=== PATIENT | male | born 1950 | race Hispanic/Latino ===

== ENCOUNTER 2017-04-29 14:01 | Emergency (ER) | payer MEDICARE ==
[2017-04-29 14:19] VITALS: TEMP 97.8
[2017-04-29] MEDS ORDERED: Albuterol-Ipratrop 3 mg / 0.5 (3 ml) UD INH STA (15:20)
[2017-04-29] MEDS ORDERED: Albuterol-Ipratrop 3 mg / 0.5 (3 ml) UD ONE (16:11)
[2017-04-29 16:14] LABS: BASO # 0.1 K/uL (0.0-0.2); BASO % 0.8 % (0.0-2.0); EOS # 0.2 K/uL (0.0-0.7); EOS % 1.6 % (0.0-4.0); HEMATOCRIT 43.2 % (35.0-51.0); LYMPH # 1.5 K/uL (1.0-4.3); LYMPH % 14.1 % (20.0-40.0); MEAN CELL VOLUME 82.7 fL (80.0-94.0); MEAN CORPUSCULAR HEMOGLOBIN 27.1 pg (27.0-31.0); MEAN CORPUSCULAR HGB CONC 32.8 g/dL (33.0-37.0); MEAN PLATELET VOLUME 7.6 fL (7.2-11.7); MONO % 9.6 % (0.0-10.0); RED CELL DISTRIBUTION WIDTH 20.1 % (11.5-14.5); WHITE BLOOD COUNT 10.3 K/uL (4.8-10.8)
--- NOTE | 2017-04-29 16:24 | C.PDOC ---
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 Patient recently had left shoulder surgery and is taking Percocet for pain. Patient has nebulizer machine at home and "didn't know I could use it." Patient denies shortness of breath, weakness, numbness, nausea, vomiting, fever, chills, or other complaints at this time. Time Seen by Provider: 04/29/17 15:07 Chief Complaint (Nursing): Chest Pain History Per: Patient History/Exam Limitations: no limitations Onset/Duration Of Symptoms: Days (3 days ) Current Symptoms Are (Timing): Still Present Quality: "Pain" Associated Symptoms: denies: Nausea, Dyspnea, Diaphoresis, Syncope Modifying Factors: None Recent travel outside of the [place]: No Additional History Per: Prior Records Past Medical History Reviewed: Historical Data, Nursing Documentation, Vital Signs Vital Signs: Last Vital Signs Temp 97.8 F 04/29/17 14:17 Pulse 92 H 04/29/17 17:08 Resp 19 04/29/17 17:08 BP 145/77 04/29/17 17:08 Pulse Ox 93 L 04/29/17 17:08 Family History: States: Unknown Family Hx - Social History Hx Alcohol Use: No Hx Substance Use: No Review Of Systems Constitutional: Negative for: Fever, Chills Cardiovascular: Negative for: Palpitations Respiratory: Positive for: Cough. Negative for: Shortness of Breath Gastrointestinal: Positive for: Abdominal Pain. Negative for: Nausea, Vomiting , Diarrhea Neurological: Negative for: Weakness, Numbness Physical Exam - Physical Exam Appears: Non-toxic, No Acute Distress, Other (patient is morbidly obese ) Skin: Warm, Dry, No Rash Head: Atraumatic, Normacephalic, No Tenderness Eye(s): bilateral: Normal Inspection, PERRL, EOMI Oral Mucosa: Moist Neck: Supple Chest: Symmetrical, No Deformity, No Tenderness, Other (no rash ) Cardiovascular: Rhythm Regular, No Murmur Respiratory: No Rales, Rhonchi (mild scattered rhonci), Wheezing, Other (dry cough on exam ) Gastrointestinal/Abdominal: Soft, Tenderness (LUQ and left floating rib tenderness), No Distention, No Guarding, No Rebound, Other (abdomen is globus and protuberant ) Extremity: No Pedal Edema, No Calf Tenderness, Capillary Refill (<2 seconds ), No Deformity, No Swelling Neurological/Psych: Oriented x3 ED Course And Treatment - Laboratory Results Result Diagrams: 04/29/17 16:07 04/29/17 16:07 Lab Interpretation: Normal (trop neg.) ECG: Interpreted By Me, Viewed By Me ECG Rhythm: Sinus Rhythm ECG Interpretation: Normal Rate From EC O2 Sat by Pulse Oximetry: 97 (RA) Pulse Ox Interpretation: Normal - Radiology CXR: Interpreted by Me, Viewed By Me, Read By Radiologist CXR Interpretation: Yes: No Acute Disease Progress Note: EKG, CXR, blood work, and labs were ordered. Patient was given Pepcid, prednisone, and albuterol treatment. Medical Decision Making Medical Decision Making: mild copd exacerbation- no s/s of PNA has nebs and machine at home- educated to continue to use same. L lower floating rib discomfort, costochondritis. Disposition Doctor Will See Patient In The: Office Counseled Patient/Family Regarding: Studies Performed, Diagnosis - Disposition Disposition: HOME/ ROUTINE Disposition Time: 17:32 Condition: GOOD Forms: Next Performance ([place]) - Clinical Impression Clinical Impression: Costochondral joint sprain, COPD exacerbation - Scribe Statement The provider has reviewed the documentation as recorded by the Scriblizbet Verde All medical record entries made by the Scribe were at my direction and personally dictated by me. I have reviewed the chart and agree that the record accurately reflects my personal performance of the history, physical exam, medical decision making, and the department course for this patient. I have also personally directed, reviewed, and agree with the discharge instructions and disposition.
[2017-04-29 16:31] LABS: ALB/GLOB RATIO 1.6 (1.0-2.1); ALKALINE PHOSPHATASE 73 U/L (38-126); ALT/SGPT 39 U/L (21-72); AST/SGOT 28 U/L (17-59); BILIRUBIN,TOTAL 0.8 mg/dL (0.2-1.3); BLOOD UREA NITROGEN 29 mg/dL (9-20); CALCIUM 8.5 mg/dl (8.6-10.4); CARBON DIOXIDE 23 mmol/L (22-30); CHLORIDE 104 mmol/L (98-107); GFR AFRICAN-AMERICAN > 60; GLUCOSE,RANDOM 96 mg/dL (75-110); POTASSIUM 3.8 mmol/L (3.6-5.2); SODIUM 137 mmol/L (132-148); TOTAL PROTEIN 6.7 g/dL (6.3-8.3)
[2017-04-29 17:14] VITALS: BP 145/77; PULSE 92; RESP 19
[2017-04-29 17:32] VITALS: O2SAT 97
--- NOTE | 2017-04-30 09:05 | RAD ---
HISTORY: Shortness of breath COMPARISON: 02/16/2014 TECHNIQUE: Chest PA and lateral FINDINGS: LUNGS: Patchy increased markings at the left lung base which may represent atelectasis or infiltrate. PLEURA: No significant pleural effusion identified. No pneumothorax apparent. CARDIOVASCULAR: Normal. OSSEOUS STRUCTURES: Suture anchors in the right proximal humerus. Degenerative changes the spine with paravertebral osteophytes. VISUALIZED UPPER ABDOMEN: Normal. OTHER FINDINGS: None. IMPRESSION: Patchy increased markings at the left lung base which may represent atelectasis or infiltrate. Clinical correlation.
--- NOTE | 2017-04-30 19:12 | CARD ---
APPROVED REPORT EKG Measurement Heart [id number] <Conclusion> Normal sinus rhythm Normal ECG
== END 2017-04-29 17:50 | disposition home or self-care (01) ==
LOC: C.ER 14:01
DX: J44.1 Chronic obstructive pulmonary disease with (acute) exacerbation (principal); S23.41XA Sprain of ribs, initial encounter; X58.XXXA Exposure to other specified factors, initial encounter

== ENCOUNTER 2017-05-03 13:27 | Inpatient (IN) | payer MEDICARE ==
[2017-05-03 14:15] LABS: BASO % 0.3 % (0.0-2.0); HEMATOCRIT 39.7 % (35.0-51.0); LYMPH # 0.8 K/uL (1.0-4.3); MEAN CELL VOLUME 84.1 fL (80.0-94.0); MEAN CORPUSCULAR HEMOGLOBIN 27.5 pg (27.0-31.0); MEAN CORPUSCULAR HGB CONC 32.7 g/dL (33.0-37.0); MEAN PLATELET VOLUME 7.7 fL (7.2-11.7); MONO # 0.9 K/uL (0.0-0.8); MONO % 6.7 % (0.0-10.0); PLATELET COUNT 238 K/uL (130-400); RED CELL DISTRIBUTION WIDTH 19.5 % (11.5-14.5); WHITE BLOOD COUNT 13.7 K/uL (4.8-10.8)
[2017-05-03 14:43] LABS: ALB/GLOB RATIO 1.7 (1.0-2.1); ALKALINE PHOSPHATASE 64 U/L (38-126); ALT/SGPT 37 U/L (21-72); AST/SGOT 40 U/L (17-59); BILIRUBIN,TOTAL 0.7 mg/dL (0.2-1.3); BLOOD UREA NITROGEN 39 mg/dL (9-20); CALCIUM 8.5 mg/dl (8.6-10.4); CARBON DIOXIDE 23 mmol/L (22-30); CHLORIDE 102 mmol/L (98-107); GFR AFRICAN-AMERICAN > 60; GLUCOSE,RANDOM 109 mg/dL (75-110); POTASSIUM 3.9 mmol/L (3.6-5.2); SODIUM 135 mmol/L (132-148)
[2017-05-03 14:51] LABS: NEUTROPHIL 92 % (50-75); TOTAL CELLS COUNTED 100
[2017-05-03] MEDS ORDERED: Azithromycin 500 MG in Sodium Chloride 0.9% 250 ML IVPB STA (15:04)
[2017-05-03] MEDS ORDERED: cefTRIAXone IV 1 gm in Dextros 50 ML IV ONE (15:04)
--- NOTE | 2017-05-03 15:04 | C.PDOC ---
History Of Present Illness 67 year old male presents to the ER with a complaint of left lower chest discomfort that worsens with cough. Patient was seen on the 04/29 by me and was discharged on 5 days of prednisone and increased nebulizer treatments; however, patient's pain persists. Patient reports she used the nebulizer machine twice yesterday and once today with no relief. Denies fever, chills, or SOB. Time Seen by Provider: 05/03/17 13:37 Chief Complaint (Nursing): Chest Pain History Per: Patient History/Exam Limitations: no limitations Onset/Duration Of Symptoms: Days Current Symptoms Are (Timing): Still Present Associated Symptoms: denies: Nausea, Dyspnea, Diaphoresis, Syncope Modifying Factors: None Exacerbating Factors: Other (cough) Alleviating Factors: None Recent travel outside of the [place]: No Past Medical History Reviewed: Historical Data, Nursing Documentation, Vital Signs Vital Signs: Last Vital Signs Temp 97.9 F 05/03/17 13:42 Pulse 70 05/03/17 16:13 Resp 24 05/03/17 16:13 BP 93/56 L 05/03/17 16:13 Pulse Ox 96 05/03/17 16:13 - Medical History PMH: Anxiety, Asthma, COPD, HTN, Hyperlipidemia, Kidney Stones Surgical History: No Surg Hx Family History: States: Unknown Family Hx - Social History Hx Alcohol Use: No Hx Substance Use: No - Immunization History Hx Tetanus Toxoid Vaccination: No Hx Influenza Vaccination: No Hx Pneumococcal Vaccination: No Review Of Systems Respiratory: Positive for: Cough. Negative for: Sputum Musculoskeletal: Positive for: Other (Chest wall pain) Skin: Negative for: Rash Physical Exam - Physical Exam Appears: Non-toxic, No Acute Distress, Other (Obese) Skin: Normal Color, Warm, Dry, No Rash Head: Atraumatic, Normacephalic Oral Mucosa: Moist Neck: Normal, Supple Chest: Symmetrical, Tenderness (Left lower digitally reproducible) Respiratory: Normal Breath Sounds, No Rales, No Rhonchi, No Wheezing Gastrointestinal/Abdominal: Soft, No Tenderness Neurological/Psych: Oriented x3, Normal Speech, Other (No focal deficits) ED Course And Treatment - Laboratory Results Result Diagrams: 05/03/17 14:08 05/03/17 14:08 Lab Interpretation: Abnormal (w L shift) ECG: Interpreted By Me ECG Rhythm: Sinus Rhythm ECG Interpretation: Normal Rate From EC O2 Sat by Pulse Oximetry: 97 (Room air) Pulse Ox Interpretation: Normal - Radiology CXR: Interpreted by Me CXR Interpretation: Yes: Other (small L pleural effusion) Progress Note: duoneb, solumedrol, duoneb, tramadol, rocephin, azithromycin, blood cult Reevaluation Time: 15:20 Reassessment Condition: Improved - Physician Consult Information Outcome Of Conversation: 1500: d/w Dr. Cheng- PMD, ok to admit. d/w [facility] Medical Decision Making Medical Decision Making: persistent L lower chest dicomfort, worse with cough, failed outpatient tx w 5 day steroid course and increased nebs. No fevers or prod cough. ? small underlying infiltrate vs effusion of ? etiology, pending Ct by admitting team. Disposition Doctor Will See Patient In The: Hospital Counseled Patient/Family Regarding: Studies Performed, Diagnosis - Disposition Disposition: HOSPITALIZED Disposition Time: 15:22 Condition: GOOD - Clinical Impression Clinical Impression: Chest discomfort, COPD exacerbation, Pleuritic pain, Pleural effusion - Scribe Statement The provider has reviewed the documentation as recorded by the Scriblizbet Greco All medical record entries made by the Joseliniblizbet were at my direction and personally dictated by me. I have reviewed the chart and agree that the record accurately reflects my personal performance of the history, physical exam, medical decision making, and the department course for this patient. I have also personally directed, reviewed, and agree with the discharge instructions and disposition.
[2017-05-03] MEDS ORDERED: Albuterol-Ipratrop 3 mg / 0.5 (3 ml) UD INH STA (15:06)
[2017-05-03] MEDS ORDERED: cefTRIAXone IV 1 gm in Dextros 50 ML IVPB ONE (15:13)
[2017-05-03] MEDS ORDERED: Albuterol-Ipratrop 3 mg / 0.5 (3 ml) UD ONE (15:13)
--- NOTE | 2017-05-03 15:33 | RAD ---
HISTORY: SOB COMPARISON: Comparison made with chest radiograph dated 04/29/2017. TECHNIQUE: Chest PA and lateral FINDINGS: LUNGS: Slight progression left basilar atelectasis. Developing lower lobe infiltrate could be excluded followup radiographs. Questionable small left-sided effusion PLEURA: As above. No pneumothorax apparent. CARDIOVASCULAR: Heart remains enlarged. OSSEOUS STRUCTURES: Several right-sided rib fracture deformities are again noted Mild multilevel degenerative spondylosis of the thoracic spine. Metallic fixation anchors seen overlying the right humeral head unchanged. VISUALIZED UPPER ABDOMEN: Normal. OTHER FINDINGS: None. IMPRESSION: Slight progression left basilar atelectasis ; developing lower lobe infiltrate could be excluded followup radiographs. Questionable small left effusion. Cardiomegaly.
--- NOTE | 2017-05-03 16:59 | CP.PCM.HP ---
History of Present Illness - History of Present Illness History of Present Illness: CC: Chest pain, SOB and cough HPI: (Poor historian): 67 year old male with past medical history of anxiety, asthma, COPD, HTN, Hyperlipidemia, Kidney Stones, who presents to the ED with complaints of dyspnea and productive cough (white phlegm) that started at 10am this morning, thereafter, patient took benzoate. Patient noted left-sided pain and soreness radiating from his neck to his left arm and left side, thirty minutes after taking benzoate. Patient stated that he took his nebulizer treatment and had minimal relief, however, patient stated that his pain increased in intensity, rating it a 10/10. Patient stated he was unable to find a comfortable position to alleviate his pain. Furthermore, patient stated that laying flat worsens his symptoms. Patient denies fever, chills, nausea but admits to chest pain, SOB, palpitations, cough and headache. Patient was discharged from the ER (04/29/17) with diagnosis of costochondritis PMHx: anxiety, asthma, COPD, HTN, Hyperlipidemia, Kidney Stones PSHx: Bilateral rotator cuff repair ( Left rotator cuff on 04/16/17), Umbilical hernia, right inguinal hernia and Left knee surgery FHx: HTN Medications: HCTZ (12.5mg PO daily, Meloxicam 15mg PO daily, Simvastatin 40mg PO daily, Metoprolol 12.5mg PO daily and Doxazosin 2mg PO daily Allergies: NKDA Social Hx: lives with and son. Former smoker (30 year, 1ppd), denies ETOH and illicit drugs use Present on Admission - Present on Admission Any Indicators Present on Admission: No Review of Systems - Constitutional Constitutional: Weakness. absent: Chills, Fever, Headache - EENT Eyes: absent: Blurred Vision, Change in Vision Ears: Dizziness - Cardiovascular Cardiovascular: Chest Pain, Chest Pain at Rest, Chest Pain with Activity, Diaphoresis, Dyspnea, Dyspnea on Exertion, Palpitations. absent: Leg Edema, Syncope - Respiratory Respiratory: Cough, Dyspnea, Pain on Inspiration, Chest Congestion - Gastrointestinal Gastrointestinal: absent: Abdominal Pain, Constipation, Diarrhea, Nausea, Vomiting - Neurological Neurological: Dizziness, Weakness - Endocrine Endocrine: Fatigue, Palpitations Past Patient History - Past Social History Smoking Status: Never Smoked - CARDIAC Hx Hypertension: Yes - PULMONARY Hx Asthma: Yes Hx Chronic Obstructive Pulmonary Disease (COPD): Yes - RENAL Hx Kidney Stones: Yes - PSYCHIATRIC Hx Anxiety: Yes Hx Substance Use: No - SURGICAL HISTORY Hx Orthopedic Surgery: Yes (B/L SHOULDER, LEFT KNEE) Other/Comment: LEFT EAR, LEFT ARM MUSCLE, LITHROTRIPSY - ANESTHESIA Hx Anesthesia: Yes Hx Anesthesia Reactions: No Hx Malignant Hyperthermia: No Meds Allergies/Adverse Reactions: Allergies Allergy/AdvReac Type Severity Reaction Status Date / Time clindamycin Allergy Verified 05/03/17 13:43 Physical Exam - Constitutional Appears: No Acute Distress - Head Exam Head Exam: ATRAUMATIC, NORMAL INSPECTION - Eye Exam Eye Exam: EOMI - ENT Exam ENT Exam: Mucous Membranes Moist - Respiratory Exam Respiratory Exam: Decreased Breath Sounds (bilateral lower lobes (L>R)), NORMAL BREATHING PATTERN - Cardiovascular Exam Cardiovascular Exam: Diastolic murmur, REGULAR RHYTHM, +S1, +S2 - GI/Abdominal Exam GI & Abdominal Exam: Normal Bowel Sounds, Soft. absent: Tenderness - Extremities Exam Extremities exam: Positive for: normal inspection. Negative for: calf tenderness, pedal edema - Neurological Exam Neurological exam: Alert, Oriented x3 - Psychiatric Exam Psychiatric exam: Normal Affect - Skin Skin Exam: Normal Color Results - Vital Signs Recent Vital Signs: Last Vital Signs Temp 97.9 F 05/03/17 13:42 Pulse 70 05/03/17 16:13 Resp 24 05/03/17 16:13 BP 93/56 L 05/03/17 16:13 Pulse Ox 96 05/03/17 16:13 - Labs Result Diagrams: 05/03/17 14:08 05/03/17 14:08 Labs: Laboratory Results - last 24 hr 05/03/17 05/03/17 14:08 14:08 WBC 13.7 H RBC 4.72 Hgb 13.0 Hct 39.7 MCV 84.1 MCH 27.5 MCHC 32.7 L RDW 19.5 H Plt Count 238 MPV 7.7 Neut % (Auto) 87.0 H Lymph % (Auto) 6.0 L Blount % (Auto) 6.7 Eos % (Auto) 0.0 Baso % (Auto) 0.3 Neut # 11.9 H Lymph # 0.8 L Blount # 0.9 H Eos # 0.0 Baso # 0.0 Neutrophils % (Manual) 92 H Lymphocytes % (Manual) 5 L Monocytes % (Manual) 3 Platelet Estimate Normal Anisocytosis (manual) Slight Sodium 135 Potassium 3.9 Chloride 102 Carbon Dioxide 23 Anion Gap 14 BUN 39 H Creatinine 1.0 Est GFR ( Amer) > 60 Est GFR (Non-Af Amer) > 60 Random Glucose 109 Calcium 8.5 L Total Bilirubin 0.7 AST 40 ALT 37 Alkaline Phosphatase 64 Troponin I < 0.0120 NT-Pro-B Natriuret Pep 135 Total Protein 6.0 L Albumin 3.8 Globulin 2.2 Albumin/Globulin Ratio 1.7 Assessment & Plan (1) Pneumonia Assessment and Plan: On admission: WBC: 13.5, Neutrophils: 87% Chest X-ray: Slight progression left basilar atelectasis; developing lower lobe infiltrate. Questionable small effusion f/u chest CT Medications: * Azithromycin 500mg IVPB daily * Rocephin 1gm IVPB daily * Duonebs 6ml RQ6H Status: Acute (2) Chest pain Assessment and Plan: AUTUMN Panel: * Negative x1, F/u AUTUMN x2 F/u: Lipid panel and HgbA1c Medications: * Crestor 20mg PO daily * Metoprolol 12.5 mg po daily Status: Acute (3) Pleuritic pain Assessment and Plan: Medication: * Tylenol 650mg PO Q6H prn (pain control) Status: Acute (4) History of hypertension Assessment and Plan: Continue home medications: * HCTZ 12.5mg PO daily * Metoprolol 12.5 Status: Acute (5) History of hyperlipidemia Assessment and Plan: Continue home medication: * Crestor 20mg po daily Status: Acute (6) History of anxiety Assessment and Plan: Continue home medications: * Sertraline 100mg PO daily Status: Acute (7) History of urinary retention Assessment and Plan: Continue home medication: * Doxazosin 2mg po daily Status: Acute (8) Prophylactic measure Assessment and Plan: GI: Protonix 20mg PO daily DVT: SCDs, Heparin 5,000 units Q12H Florastor 250mg PO BID Hearty healthy diet Status: Acute
[2017-05-03] MEDS ORDERED: Albuterol-Ipratrop 3 mg / 0.5 (3 ml) UD INH PRN (17:05)
[2017-05-03] MEDS ORDERED: Promethazine DM 6.25 mg-15 mg/5 ml Syrup PO PRN (21:14)
[2017-05-03] MEDS ORDERED: Iodixanol 320 MG/ML 100 ML BOTTLE IV ONE (22:12)
--- NOTE | 2017-05-03 23:00 | CT ---
EXAM: CT Angiography Chest With Intravenous Contrast CLINICAL HISTORY: 67 years old, male; Pain and signs and symptoms; Shortness of breath; Chest pain; Type not specified; Additional info: Chest pain and SOB TECHNIQUE: Axial computed tomographic angiography images of the chest with intravenous contrast using pulmonary embolism protocol. All CT scans at this facility use one or more dose reduction techniques, viz.: automated exposure control; ma/kV adjustment per patient size (including targeted exams where dose is matched to indication; i.e. head); or iterative reconstruction technique. MIP reconstructed images were created and reviewed. Coronal and sagittal reformatted images were created and reviewed. CONTRAST: 100 mL of VISIPAQUE 320 administered intravenously. COMPARISON: No relevant prior studies available. FINDINGS: Limitations: Motion artifact - mild to moderate. Pulmonary arteries: Long filling defect extending into upper and lower lobar branches of RIGHT pulmonary artery. Several filling defects within segmental, subsegmental branches of RIGHT pulmonary artery. Aorta: Mild atherosclerotic disease of aorta. No aneurysm. Lungs: Mild peripheral consolidation with associated volume loss within LEFT lower lobe. Minimal peripheral atelectasis/scarring. Pleural space: Moderate LEFT pleural effusion. No pneumothorax. Heart: No cardiomegaly. No significant pericardial effusion. Bones/joints: Few healed/chronic ununited RIGHT rib fractures. Mild degenerative changes of spine. Soft tissues: Unremarkable. Lymph nodes: No pathologically enlarged lymph nodes. Liver: Fatty infiltration. Gallbladder and bile ducts: Calcified gallstone. IMPRESSION: 1. Pulmonary emboli. 2. LEFT pleural effusion with LLL atelectasis. Superimposed pneumonia not excluded. 3. Incidental/non-acute findings are described above.
--- NOTE | 2017-05-03 23:38 | CP.PCM.PN ---
Subjective - Date & Time of Evaluation Date of Evaluation: 05/03/17 Time of Evaluation: 22:36 - Subjective Subjective: CT angio (05/03/17): Pulmonary Emboli; long filling defect extending into upper and lower lobar branches of right pulmonary artery. Several filling defects within segmental, subsegmental branches of right pulmonary artery. Discussed results with Dr. Cheng Started patient on Lovenox 130mg SC q12h Objective - Vital Signs/Intake and Output Vital Signs (last 24 hours): Temp Pulse Resp BP Pulse Ox 97.4 F L 71 18 126/76 94 L 05/03/17 18:05 05/03/17 20:05 05/03/17 18:05 05/03/17 18:05 05/03/17 18:05 - Medications Medications: Current Medications Acetaminophen (Tylenol 325mg Tab) 650 mg PO Q6 PRN PRN Reason: Pain, moderate (4-7) Albuterol/Ipratropium (Duoneb 3 Mg/0.5 Mg (3 Ml) Ud) 6 ml INH RQ4 PRN PRN Reason: asthma Albuterol/Ipratropium (Duoneb 3 Mg/0.5 Mg (3 Ml) Ud) 3 ml INH RQ6 [facility] Doxazosin Mesylate (Cardura) 2 mg PO DAILY [facility] Heparin Sodium (Porcine) (Heparin) 5,000 units SC Q12 [facility] Last Admin: 05/03/17 22:13 Dose: 5,000 units Hydrochlorothiazide (Microzide) 12.5 mg PO DAILY [facility] Ceftriaxone Sodium (Rocephin Iv 1 Gm Duplex) 50 mls @ 100 mls/hr IVPB Q24H [facility] Azithromycin 500 mg/ Sodium (Chloride) 250 mls @ 250 mls/hr IVPB Q24H [facility] Losartan Potassium (Cozaar) 100 mg PO DAILY [facility] Methylprednisolone (Solu-Medrol) 40 mg IVP Q6H [facility] Metoprolol Succinate (Toprol Xl) 12.5 mg PO DAILY [facility] Pantoprazole Sodium (Protonix Ec Tab) 20 mg PO DAILY [facility] Promethazine HCl/Dextromethorphan (Phenergan Dm Syrup) 5 ml PO Q6H PRN PRN Reason: Cough Rosuvastatin Calcium (Crestor) 20 mg PO HS [facility] Last Admin: 05/03/17 22:16 Dose: Not Given Saccharomyces Boulardii (Florastor) 250 mg PO BID [facility] Sertraline HCl (Zoloft) 100 mg PO DAILY [facility] - Labs Labs: 05/03/17 14:08 05/03/17 14:08
[2017-05-04] MEDS: Enoxaparin 150 mg Syringe SC SCH ×2 (00:14→09:36)
[2017-05-04] MEDS: Albuterol-Ipratrop 3 mg / 0.5 (3 ml) UD INH SCH ×4 (01:32→19:34)
[2017-05-04 01:33] VITALS: RESP 20
[2017-05-04] MEDS: MethylPREDNISolone 40 mg Vial IVP SCH ×4 (03:21→22:47)
[2017-05-04 07:28] LABS: BASO % 0.1 % (0.0-2.0); HEMATOCRIT 38.2 % (35.0-51.0); LYMPH # 0.6 K/uL (1.0-4.3); LYMPH % 4.3 % (20.0-40.0); MEAN CELL VOLUME 83.8 fL (80.0-94.0); MEAN CORPUSCULAR HEMOGLOBIN 27.4 pg (27.0-31.0); MEAN CORPUSCULAR HGB CONC 32.7 g/dL (33.0-37.0); MEAN PLATELET VOLUME 7.9 fL (7.2-11.7); MONO # 0.6 K/uL (0.0-0.8); PLATELET COUNT 246 K/uL (130-400); RED CELL DISTRIBUTION WIDTH 19.5 % (11.5-14.5); WHITE BLOOD COUNT 14.1 K/uL (4.8-10.8)
[2017-05-04 08:32] LABS: ALB/GLOB RATIO 1.7 (1.0-2.1); ALKALINE PHOSPHATASE 64 U/L (38-126); ALT/SGPT 37 U/L (21-72); AST/SGOT 31 U/L (17-59); BLOOD UREA NITROGEN 38 mg/dL (9-20); CALCIUM 8.4 mg/dl (8.6-10.4); CARBON DIOXIDE 27 mmol/L (22-30); CHLORIDE 99 mmol/L (98-107); CHOLESTEROL 140 mg/dL (0-199); GFR AFRICAN-AMERICAN > 60; GLUCOSE,RANDOM 131 mg/dL (75-110); PHOSPHOROUS 4.6 mg/dL (2.5-4.5); POTASSIUM 4.8 mmol/L (3.6-5.2); SODIUM 135 mmol/L (132-148); TOTAL PROTEIN 6.2 g/dL (6.3-8.3)
[2017-05-04] MEDS: Saccharomyces Boulardi 250 mg Cap PO SCH ×2 (09:35→18:09)
[2017-05-04] MEDS: Pantoprazole 20 mg EC Tab PO SCH (09:36)
[2017-05-04] MEDS: Metoprolol Succinate 12.5 mg XL PO SCH (09:37)
[2017-05-04 09:44] LABS: NEUTROPHIL 88 % (50-75); TOTAL CELLS COUNTED 100
[2017-05-04 09:46] LABS: LARGE PLATELETS PRESENT
[2017-05-04] MEDS ORDERED: Home Med 1 UNIT (Simvastatin [Simvastatin] 1 TAB) PO SCH (10:00)
--- NOTE | 2017-05-04 11:08 | CP.PCM.PN ---
Subjective - Date & Time of Evaluation Date of Evaluation: 05/04/17 Time of Evaluation: 11:08 - Subjective Subjective: PGY2 note for Dr. Cheng Pt seen and examined at bedside this AM; patient believes that he developed a PE from taking tessalon pearles; patient is much less short of breath; uses CPAP at sleep most likely 2/2 to body habitus; denies any more fevers/chills, [place] , CP is much improved, SOB improved, abdominal pain N/V/D, dysuria/freq/urg or lower extremity pain/swelling. Objective - Vital Signs/Intake and Output Vital Signs (last 24 hours): Temp Pulse Resp BP Pulse Ox 97.3 F L 78 20 174/61 H 96 05/04/17 07:35 05/04/17 08:54 05/04/17 07:35 05/04/17 07:35 05/04/17 07:35 - Medications Medications: Current Medications Acetaminophen (Tylenol 325mg Tab) 650 mg PO Q6 PRN PRN Reason: Pain, moderate (4-7) Albuterol/Ipratropium (Duoneb 3 Mg/0.5 Mg (3 Ml) Ud) 6 ml INH RQ4 PRN PRN Reason: asthma Albuterol/Ipratropium (Duoneb 3 Mg/0.5 Mg (3 Ml) Ud) 3 ml INH RQ6 [facility] Last Admin: 05/04/17 08:53 Dose: 3 ml Doxazosin Mesylate (Cardura) 2 mg PO DAILY [facility] Last Admin: 05/04/17 09:36 Dose: 2 mg Enoxaparin Sodium (Lovenox) 130 mg SC Q12 [facility] Last Admin: 05/04/17 09:36 Dose: 130 mg Hydrochlorothiazide (Microzide) 12.5 mg PO DAILY [facility] Last Admin: 05/04/17 09:35 Dose: 12.5 mg Ceftriaxone Sodium (Rocephin Iv 1 Gm Duplex) 50 mls @ 100 mls/hr IVPB Q24H [facility] Azithromycin 500 mg/ Sodium (Chloride) 250 mls @ 250 mls/hr IVPB Q24H [facility] Losartan Potassium (Cozaar) 100 mg PO DAILY [facility] Last Admin: 05/04/17 09:35 Dose: 100 mg Methylprednisolone (Solu-Medrol) 40 mg IVP Q6H [facility] Last Admin: 05/04/17 09:35 Dose: 40 mg Metoprolol Succinate (Toprol Xl) 12.5 mg PO DAILY [facility] Last Admin: 05/04/17 09:37 Dose: 12.5 mg Pantoprazole Sodium (Protonix Ec Tab) 20 mg PO DAILY [facility] Last Admin: 05/04/17 09:36 Dose: 20 mg Promethazine HCl/Dextromethorphan (Phenergan Dm Syrup) 5 ml PO Q6H PRN PRN Reason: Cough Rosuvastatin Calcium (Crestor) 20 mg PO HS [facility] Last Admin: 05/03/17 22:16 Dose: Not Given Saccharomyces Boulardii (Florastor) 250 mg PO BID [facility] Last Admin: 05/04/17 09:35 Dose: 250 mg Sertraline HCl (Zoloft) 100 mg PO DAILY [facility] Last Admin: 05/04/17 09:37 Dose: 100 mg - Labs Labs: 05/04/17 07:09 05/04/17 07:09 - Constitutional Appears: Well, Non-toxic - Head Exam Head Exam: ATRAUMATIC, NORMAL INSPECTION - Eye Exam Eye Exam: EOMI - ENT Exam ENT Exam: Mucous Membranes Moist - Neck Exam Neck Exam: Full ROM. absent: Lymphadenopathy - Respiratory Exam Respiratory Exam: Clear to Ausculation Bilateral, NORMAL BREATHING PATTERN. absent: Rales, Rhonchi, Wheezes - Cardiovascular Exam Cardiovascular Exam: REGULAR RHYTHM, +S1, +S2 - GI/Abdominal Exam GI & Abdominal Exam: Soft, Normal Bowel Sounds Additional comments: obese abdomen - Extremities Exam Extremities Exam: Full ROM. absent: Calf Tenderness - Back Exam Back Exam: NORMAL INSPECTION. absent: CVA tenderness (L), CVA tenderness (R) - Neurological Exam Neurological Exam: Alert, Awake, Oriented x3 - Psychiatric Exam Psychiatric exam: Normal Affect, Normal Mood - Skin Skin Exam: Warm Assessment and Plan - Assessment and Plan (Free Text) Assessment: Pneumonia; resolving On admission: WBC: 13.5, Neutrophils: 87%; have increased however patient got solumedrol Chest X-ray: Slight progression left basilar atelectasis; developing lower lobe infiltrate. Questionable small effusion f/u chest CT * Azithromycin 500mg IVPB daily * Rocephin 1gm IVPB daily * Duonebs 6ml RQ6H Chest pain 2/2 to acute PE AUTUMN negative F/u: Lipid Panel WNL, HbA1C pending Medications: * Crestor 20mg PO daily * Metoprolol 12.5 mg po daily [place] started 05/04 10mg BID for 7 days; 05/11 will start 5mg BID for 3 months; patient recently had shoulder surgery and was immobilized which makes it a provoked PE Tylenol History of hypertension Continue home medications: * HCTZ 12.5mg PO daily * Metoprolol 12.5 History of hyperlipidemia Continue home medication: * Crestor 20mg po daily History of anxiety Continue home medications: * Sertraline 100mg PO daily History of urinary retention Continue home medication: * Doxazosin 2mg po daily Prophylactic measure Assessment and Plan: GI: Protonix 20mg PO daily DVT: SCDs, Lovenox Therapeutic Florastor 250mg PO BID Hearty healthy diet
[2017-05-04] MEDS: cefTRIAXone IV 1 gm in Dextros 50 ML IVPB SCH (14:32)
[2017-05-04] MEDS ORDERED: Azithromycin 500 MG in Sodium Chloride 0.9% 250 ML IVPB SCH (16:00)
--- NOTE | 2017-05-04 18:01 | CP.PCM.CON ---
History of Present Illness - History of Present Illness History of Present Illness: reason for consultation: shortness of breath Patient is 67-year-old male with history of COPD, hypertension, hyperlipidemia, renal stone who presented to emergency room complaining of shortness of breath and cough. Patient also complaining of left-sided chest pain. CAT scan of the chest consistent with pulmonary embolism and pleural effusion on the left side. Patient initially started on Lovenox and then switched to ELIQUIS. patient states he feels much better PMHx: anxiety, asthma, COPD, HTN, Hyperlipidemia, Kidney Stones PSHx: Bilateral rotator cuff repair ( Left rotator cuff on 04/16/17), Umbilical hernia, right inguinal hernia and Left knee surgery FHx: HTN Medications: HCTZ (12.5mg PO daily, Meloxicam 15mg PO daily, Simvastatin 40mg PO daily, Metoprolol 12.5mg PO daily and Doxazosin 2mg PO daily Allergies: NKDA Social Hx: lives with and son. Former smoker (30 year, 1ppd), denies ETOH and illicit drugs use Review of Systems - Review of Systems All systems: reviewed and no additional remarkable complaints except (shortness of breath, cough and chest pain) Past Patient History - Past Social History Smoking Status: Never Smoked - CARDIAC Hx Hypertension: Yes - PULMONARY Hx Asthma: Yes Hx Chronic Obstructive Pulmonary Disease (COPD): Yes - NEUROLOGICAL Hx Neurological Disorder: No - HEENT Hx HEENT Problems: No - RENAL Hx Kidney Stones: Yes - ENDOCRINE/METABOLIC Hx Endocrine Disorders: No - HEMATOLOGICAL/ONCOLOGICAL Hx Blood Transfusions: No - INTEGUMENTARY Hx Dermatological Problems: No - MUSCULOSKELETAL/RHEUMATOLOGICAL Hx Musculoskeletal Disorders: No Hx Falls: No - GASTROINTESTINAL Hx Gastrointestinal Disorders: No - GENITOURINARY/GYNECOLOGICAL Hx Genitourinary Disorders: No - PSYCHIATRIC Hx Anxiety: Yes Hx Substance Use: No - SURGICAL HISTORY Hx Orthopedic Surgery: Yes (B/L SHOULDER, LEFT KNEE) Other/Comment: LEFT EAR, LEFT ARM MUSCLE, LITHROTRIPSY - ANESTHESIA Hx Anesthesia: Yes Hx Anesthesia Reactions: No Hx Malignant Hyperthermia: No Meds Allergies/Adverse Reactions: Allergies Allergy/AdvReac Type Severity Reaction Status Date / Time clindamycin Allergy Verified 05/03/17 13:43 - Medications Medications: Current Medications Acetaminophen (Tylenol 325mg Tab) 650 mg PO Q6 PRN PRN Reason: Pain, moderate (4-7) Albuterol/Ipratropium (Duoneb 3 Mg/0.5 Mg (3 Ml) Ud) 6 ml INH RQ4 PRN PRN Reason: asthma Albuterol/Ipratropium (Duoneb 3 Mg/0.5 Mg (3 Ml) Ud) 3 ml INH RQ6 [facility] Last Admin: 05/04/17 13:48 Dose: 3 ml Apixaban (Eliquis) 10 mg PO BID [facility] Stop: 05/11/17 23:55 Doxazosin Mesylate (Cardura) 2 mg PO DAILY [facility] Last Admin: 05/04/17 09:36 Dose: 2 mg Hydrochlorothiazide (Microzide) 12.5 mg PO DAILY [facility] Last Admin: 05/04/17 09:35 Dose: 12.5 mg Ceftriaxone Sodium (Rocephin Iv 1 Gm Duplex) 50 mls @ 100 mls/hr IVPB Q24H [facility] Last Admin: 05/04/17 14:32 Dose: 100 mls/hr Azithromycin 500 mg/ Sodium (Chloride) 250 mls @ 250 mls/hr IVPB Q24H [facility] Last Admin: 05/04/17 17:00 Dose: 250 mls/hr Losartan Potassium (Cozaar) 100 mg PO DAILY [facility] Last Admin: 05/04/17 09:35 Dose: 100 mg Methylprednisolone (Solu-Medrol) 40 mg IVP Q6H [facility] Last Admin: 05/04/17 17:12 Dose: 40 mg Metoprolol Succinate (Toprol Xl) 12.5 mg PO DAILY [facility] Last Admin: 05/04/17 09:37 Dose: 12.5 mg Pantoprazole Sodium (Protonix Ec Tab) 20 mg PO DAILY [facility] Last Admin: 05/04/17 09:36 Dose: 20 mg Promethazine HCl/Dextromethorphan (Phenergan Dm Syrup) 5 ml PO Q6H PRN PRN Reason: Cough Rosuvastatin Calcium (Crestor) 20 mg PO HS [facility] Last Admin: 05/03/17 22:16 Dose: Not Given Saccharomyces Boulardii (Florastor) 250 mg PO BID [facility] Last Admin: 05/04/17 09:35 Dose: 250 mg Sertraline HCl (Zoloft) 100 mg PO DAILY [facility] Last Admin: 05/04/17 09:37 Dose: 100 mg Physical Exam - Head Exam Head Exam: ATRAUMATIC, NORMOCEPHALIC - ENT Exam ENT Exam: Mucous Membranes Moist - Neck Exam Neck exam: Positive for: Normal Inspection - Respiratory Exam Respiratory Exam: Decreased Breath Sounds - Cardiovascular Exam Cardiovascular Exam: REGULAR RHYTHM - GI/Abdominal Exam GI & Abdominal Exam: Normal Bowel Sounds, Soft Results - Vital Signs Recent Vital Signs: Last Vital Signs Temp 98.2 F 05/04/17 15:00 Pulse 79 05/04/17 15:00 Resp 20 05/04/17 15:00 BP 132/48 L 05/04/17 15:00 Pulse Ox 96 05/04/17 15:00 - Labs Result Diagrams: 05/04/17 07:09 05/04/17 07:09 Labs: Laboratory Results - last 24 hr 05/03/17 05/04/17 05/04/17 19:52 02:11 07:09 WBC 14.1 H RBC 4.56 Hgb 12.5 Hct 38.2 MCV 83.8 MCH 27.4 MCHC 32.7 L RDW 19.5 H Plt Count 246 MPV 7.9 Neut % (Auto) 91.6 H Lymph % (Auto) 4.3 L Mcintosh % (Auto) 4.0 Eos % (Auto) 0.0 Baso % (Auto) 0.1 Neut # 12.9 H Lymph # 0.6 L Mcintosh # 0.6 Eos # 0.0 Baso # 0.0 Neutrophils % (Manual) 88 H Band Neutrophils % 2 Lymphocytes % (Manual) 6 L Monocytes % (Manual) 4 Platelet Estimate Normal Large Platelets Present Polychromasia Slight Hypochromasia (manual) Slight Anisocytosis (manual) Slight Sodium Potassium Chloride Carbon Dioxide Anion Gap BUN Creatinine Est GFR ( Amer) Est GFR (Non-Af Amer) Random Glucose Calcium Phosphorus Magnesium Total Bilirubin AST ALT Alkaline Phosphatase Total Creatine Kinase 357 H 396 H CK-MB (Mass) 2.64 2.75 Troponin I < 0.0120 < 0.0120 Total Protein Albumin Globulin Albumin/Globulin Ratio Triglycerides Cholesterol LDL Cholesterol Direct HDL Cholesterol 05/04/17 07:09 WBC RBC Hgb Hct MCV MCH MCHC RDW Plt Count MPV Neut % (Auto) Lymph % (Auto) Mcintosh % (Auto) Eos % (Auto) Baso % (Auto) Neut # Lymph # Mcintosh # Eos # Baso # Neutrophils % (Manual) Band Neutrophils % Lymphocytes % (Manual) Monocytes % (Manual) Platelet Estimate Large Platelets Polychromasia Hypochromasia (manual) Anisocytosis (manual) Sodium 135 Potassium 4.8 Chloride 99 Carbon Dioxide 27 Anion Gap 14 BUN 38 H Creatinine 0.8 Est GFR ( Amer) > 60 Est GFR (Non-Af Amer) > 60 Random Glucose 131 H Calcium 8.4 L Phosphorus 4.6 H Magnesium 2.0 Total Bilirubin 1.0 AST 31 ALT 37 Alkaline Phosphatase 64 Total Creatine Kinase CK-MB (Mass) Troponin I Total Protein 6.2 L Albumin 3.9 Globulin 2.2 Albumin/Globulin Ratio 1.7 Triglycerides 136 Cholesterol 140 LDL Cholesterol Direct 70 HDL Cholesterol 53 Assessment & Plan (1) Pulmonary embolism Status: Acute Comment: bilateral pulmonary embolism. Continue anticoagulation. Venous Doppler of legs and arm as patient had recent shoulder surgery. Continue antibiotics. Pleural effusion most likely secondary Hiram (2) COPD exacerbation Status: Acute (3) Pleural effusion Status: Acute (4) Pleuritic pain Status: Acute (5) Pneumonia Status: Acute
[2017-05-04] MEDS ORDERED: Promethazine/Cod 6.25mg-10mg/5ml Syr UD PO PRN (23:00)
[2017-05-05] MEDS: Albuterol-Ipratrop 3 mg / 0.5 (3 ml) UD INH SCH ×3 (01:43→13:17)
[2017-05-05] MEDS: MethylPREDNISolone 40 mg Vial IVP SCH ×2 (03:36→10:10)
[2017-05-05 04:36] VITALS: O2SAT 95
[2017-05-05 09:11] LABS: BASO % 0.2 % (0.0-2.0); HEMATOCRIT 38.2 % (35.0-51.0); LYMPH # 0.7 K/uL (1.0-4.3); LYMPH % 3.8 % (20.0-40.0); MEAN CELL VOLUME 84.5 fL (80.0-94.0); MEAN CORPUSCULAR HEMOGLOBIN 27.6 pg (27.0-31.0); MEAN CORPUSCULAR HGB CONC 32.6 g/dL (33.0-37.0); MONO # 0.7 K/uL (0.0-0.8); MONO % 4.1 % (0.0-10.0); PLATELET COUNT 265 K/uL (130-400); RED CELL DISTRIBUTION WIDTH 19.5 % (11.5-14.5); WHITE BLOOD COUNT 18.2 K/uL (4.8-10.8)
[2017-05-05 09:23] LABS: ALB/GLOB RATIO 1.7 (1.0-2.1); ALKALINE PHOSPHATASE 66 U/L (38-126); ALT/SGPT 28 U/L (21-72); AST/SGOT 27 U/L (17-59); BILIRUBIN,TOTAL 0.8 mg/dL (0.2-1.3); BLOOD UREA NITROGEN 37 mg/dL (9-20); CALCIUM 8.9 mg/dl (8.6-10.4); CARBON DIOXIDE 24 mmol/L (22-30); CHLORIDE 100 mmol/L (98-107); GFR AFRICAN-AMERICAN > 60; GLUCOSE,RANDOM 156 mg/dL (75-110); MAGNESIUM 2.1 mg/dL (1.6-2.3); POTASSIUM 4.2 mmol/L (3.6-5.2); SODIUM 135 mmol/L (132-148); TOTAL PROTEIN 6.4 g/dL (6.3-8.3)
--- NOTE | 2017-05-05 09:38 | CP.PCM.DIS ---
Provider - Provider Date of Admission: 05/03/17 15:06 Attending physician: Guanako Cheng Jr, MD Consults: Pee; pulmonology Time Spent in preparation of Discharge (in minutes): 45 Hospital Course - Lab Results Lab Results: Micro Results 05/03/17 15:30 Blood Blood Culture - Preliminary NO GROWTH AFTER 24 HOURS 05/03/17 15:00 Blood Blood Culture - Preliminary NO GROWTH AFTER 24 HOURS Most Recent Lab Values WBC 18.2 K/uL (4.8-10.8) H 05/05/17 08:49 RBC 4.52 Mil/uL (4.40-5.90) 05/05/17 08:49 Hgb 12.5 g/dL (12.0-18.0) 05/05/17 08:49 Hct 38.2 % (35.0-51.0) 05/05/17 08:49 MCV 84.5 fL (80.0-94.0) 05/05/17 08:49 MCH 27.6 pg (27.0-31.0) 05/05/17 08:49 MCHC 32.6 g/dL (33.0-37.0) L 05/05/17 08:49 RDW 19.5 % (11.5-14.5) H 05/05/17 08:49 Plt Count 265 K/uL (130-400) 05/05/17 08:49 MPV 8.0 fL (7.2-11.7) 05/05/17 08:49 Neut % (Auto) 91.9 % (50.0-75.0) H 05/05/17 08:49 Lymph % (Auto) 3.8 % (20.0-40.0) L 05/05/17 08:49 Hodgeman % (Auto) 4.1 % (0.0-10.0) 05/05/17 08:49 Eos % (Auto) 0.0 % (0.0-4.0) 05/05/17 08:49 Baso % (Auto) 0.2 % (0.0-2.0) 05/05/17 08:49 Neut # 16.7 K/uL (1.8-7.0) H 05/05/17 08:49 Lymph # 0.7 K/uL (1.0-4.3) L 05/05/17 08:49 Hodgeman # 0.7 K/uL (0.0-0.8) 05/05/17 08:49 Eos # 0.0 K/uL (0.0-0.7) 05/05/17 08:49 Baso # 0.0 K/uL (0.0-0.2) 05/05/17 08:49 Neutrophils % (Manual) 88 % (50-75) H 05/04/17 07:09 Band Neutrophils % 2 % (0-2) 05/04/17 07:09 Lymphocytes % (Manual) 6 % (20-40) L 05/04/17 07:09 Monocytes % (Manual) 4 % (0-10) 05/04/17 07:09 Platelet Estimate Normal (NORMAL) 05/04/17 07:09 Large Platelets Present 05/04/17 07:09 Polychromasia Slight 05/04/17 07:09 Hypochromasia (manual) Slight 05/04/17 07:09 Anisocytosis (manual) Slight 05/04/17 07:09 Sodium 135 mmol/L (132-148) 05/05/17 08:49 Potassium 4.2 mmol/L (3.6-5.2) 05/05/17 08:49 Chloride 100 mmol/L (98-107) 05/05/17 08:49 Carbon Dioxide 24 mmol/L (22-30) 05/05/17 08:49 Anion Gap 16 (10-20) 05/05/17 08:49 BUN 37 mg/dL (9-20) H 05/05/17 08:49 Creatinine 0.9 mg/dL (0.8-1.5) 05/05/17 08:49 Est GFR ( Amer) > 60 05/05/17 08:49 Est GFR (Non-Af Amer) > 60 05/05/17 08:49 Random Glucose 156 mg/dL (75-110) H 05/05/17 08:49 Calcium 8.9 mg/dl (8.6-10.4) 05/05/17 08:49 Phosphorus 4.0 mg/dL (2.5-4.5) 05/05/17 08:49 Magnesium 2.1 mg/dL (1.6-2.3) 05/05/17 08:49 Total Bilirubin 0.8 mg/dL (0.2-1.3) 05/05/17 08:49 AST 27 U/L (17-59) 05/05/17 08:49 ALT 28 U/L (21-72) 05/05/17 08:49 Alkaline Phosphatase 66 U/L (38-126) 05/05/17 08:49 Total Creatine Kinase 265 U/L (55-170) H 05/04/17 22:51 CK-MB (Mass) 2.49 ng/mL (0.0-3.38) 05/04/17 22:51 Troponin I < 0.0120 ng/mL (0.00-0.120) 05/04/17 22:51 NT-Pro-B Natriuret Pep 135 pg/mL (0-900) 05/03/17 14:08 Total Protein 6.4 g/dL (6.3-8.3) 05/05/17 08:49 Albumin 4.0 g/dL (3.5-5.0) 05/05/17 08:49 Globulin 2.4 gm/dL (2.2-3.9) 05/05/17 08:49 Albumin/Globulin Ratio 1.7 (1.0-2.1) 05/05/17 08:49 Triglycerides 136 mg/dL (0-149) 05/04/17 07:09 Cholesterol 140 mg/dL (0-199) 05/04/17 07:09 LDL Cholesterol Direct 70 mg/dL (0-129) 05/04/17 07:09 HDL Cholesterol 53 mg/dL (30-70) 05/04/17 07:09 - Hospital Course Hospital Course: Pneumonia; resolving On admission: WBC: 13.5, Neutrophils: 87%; have increased however patient got solumedrol Chest X-ray: Slight progression left basilar atelectasis; developing lower lobe infiltrate. Questionable small effusion f/u chest CT * Azithromycin 500mg IVPB daily * Rocephin 1gm IVPB daily * Duonebs 6ml RQ6H The patient will complete Z-Pack at home, and use an inhaler as needed for SOB. He will need to follow up in 6 weeks for chest x-ray to see resolution of PNA. Chest pain 2/2 to acute PE;resolving AUTUMN negative F/u: Lipid Panel WNL, HbA1C pending Medications: * Crestor 20mg PO daily * Metoprolol 12.5 mg po daily Eliquis started 05/04 10mg BID for 7 days; 05/11 will start 5mg BID for 3 months; patient recently had shoulder surgery and was immobilized which makes it a provoked PE Tylenol The patient was given prescription for Eliquis, 5mg, which he will take 10mg for the next 6 days BID, and then 5mg BID thereafter for 3 months. History of hypertension Continue home medications: * HCTZ 12.5mg PO daily * Metoprolol 12.5 C/w home meds History of hyperlipidemia Continue home medication: * Crestor 20mg po daily C/w home meds History of anxiety Continue home medications: * Sertraline 100mg PO daily c/w home meds History of urinary retention Continue home medication: * Doxazosin 2mg po daily c/w home meds The patient is stable for d/c as per Dr. Cheng Discharge Exam - Head Exam Head Exam: ATRAUMATIC, NORMOCEPHALIC - Eye Exam Eye Exam: EOMI, Normal appearance - ENT Exam ENT Exam: Mucous Membranes Moist - Neck Exam Neck exam: Full Rom - Respiratory Exam Respiratory Exam: Clear to PA & Lateral, UNREMARKABLE. absent: Rhonchi, Wheezes , Respiratory Distress Discharge Plan - Discharge Medications Prescriptions: Albuterol Sulfate [Proventil Hfa] 2 puff IH Q6H PRN #1 hfa.[id number].[id number] PRN Reason: SOB Apixaban [Eliquis] 5 mg PO BID #60 tab Azithromycin [Zithromax] 250 mg PO DAILY #6 tab - Follow Up Plan Condition: GOOD Disposition: HOME/ ROUTINE Patient education suggested?: Yes Instructions: Pulmonary Embolism (DC) Referrals: Slava Glasgow MD [Staff Provider] - Guanako Cheng Jr., MD [Medical Doctor] -
[2017-05-05] MEDS ORDERED: Influenza Vaccine 60 mcg/0.5 mL SYR (4YR UP) IM ONE (10:00)
[2017-05-05] MEDS: Saccharomyces Boulardi 250 mg Cap PO SCH (10:07)
[2017-05-05] MEDS: Pantoprazole 20 mg EC Tab PO SCH (10:08)
[2017-05-05] MEDS: Metoprolol Succinate 12.5 mg XL PO SCH (10:08)
[2017-05-05 10:29] VITALS: BP 113/93; PULSE 73; TEMP 97.5
[2017-05-05 10:54] LABS: NEUTROPHIL 91 % (50-75); TOTAL CELLS COUNTED 100
[2017-05-05 10:55] LABS: LARGE PLATELETS PRESENT
[2017-05-05] MEDS ORDERED: guaiFENesin 600 mg ER Tab PO STA (13:55)
[2017-05-05] MEDS: cefTRIAXone IV 1 gm in Dextros 50 ML IVPB SCH (14:37)
== END 2017-05-05 17:30 | disposition home or self-care (01) | DRG 175 ==
LOC: C.ER 13:27 → C.9E 15:06 → C.6T 17:32
PROVIDERS: ADMIT Internal Medicine; ATTEND Internal Medicine
PROC: 5A09457 Assistance with Respiratory Ventilation, 24-96 Consecutive Hours, Continuous Positive Airway Pressure (ICD-10-PCS; principal; 2017-05-03)
DX: I26.99 Other pulmonary embolism without acute cor pulmonale (principal); J18.9 Pneumonia, unspecified organism; J90 Pleural effusion, not elsewhere classified; J44.0 Chronic obstructive pulmonary disease with (acute) lower respiratory infection; J44.1 Chronic obstructive pulmonary disease with (acute) exacerbation; I10 Essential (primary) hypertension; E78.5 Hyperlipidemia, unspecified; F41.9 Anxiety disorder, unspecified; Z87.891 Personal history of nicotine dependence; R33.9 Retention of urine, unspecified

== ENCOUNTER 2017-05-06 16:03 | Inpatient (IN) | payer MEDICARE ==
[2017-05-06] MEDS ORDERED: Oxycodone/Acetaminophen 5/325 mg Tab PO STA (16:25)
[2017-05-06] MEDS ORDERED: Oxycodone/Acetaminophen 5/325 mg Tab ONE (17:26)
[2017-05-06 17:27] LABS: BASO % 0.2 % (0.0-2.0); EOS % 0.1 % (0.0-4.0); HEMATOCRIT 39.6 % (35.0-51.0); LYMPH # 1.4 K/uL (1.0-4.3); LYMPH % 11.6 % (20.0-40.0); MEAN CELL VOLUME 83.9 fL (80.0-94.0); MEAN CORPUSCULAR HEMOGLOBIN 27.1 pg (27.0-31.0); MEAN CORPUSCULAR HGB CONC 32.3 g/dL (33.0-37.0); MEAN PLATELET VOLUME 7.4 fL (7.2-11.7); MONO # 1.3 K/uL (0.0-0.8); MONO % 10.7 % (0.0-10.0); NRBC % 0.1 % (0.0-2.0); RED CELL DISTRIBUTION WIDTH 19.3 % (11.5-14.5)
--- NOTE | 2017-05-06 17:49 | RAD ---
PROCEDURE: Radiographs of the Left Shoulder HISTORY: fall from standing, L lateral shoulder pain COMPARISON: No prior. FINDINGS: BONES: Normal. No fracture. JOINTS: Moderate to severe osteoarthritic changes at the AC joint associated with narrowing of the subacromial space there is SOFT TISSUES: Normal. OTHER FINDINGS: None. IMPRESSION: No evidence of acute fracture or dislocation
[2017-05-06 18:19] LABS: ALB/GLOB RATIO 1.6 (1.0-2.1); ALKALINE PHOSPHATASE 57 U/L (38-126); ALT/SGPT 39 U/L (21-72); AST/SGOT 30 U/L (17-59); BLOOD UREA NITROGEN 40 mg/dL (9-20); CALCIUM 7.8 mg/dl (8.6-10.4); CARBON DIOXIDE 26 mmol/L (22-30); CHLORIDE 98 mmol/L (98-107); CHOLESTEROL 136 mg/dL (0-199); GFR AFRICAN-AMERICAN > 60; GLUCOSE,RANDOM 76 mg/dL (75-110); POTASSIUM 3.6 mmol/L (3.6-5.2); SODIUM 134 mmol/L (132-148); TOTAL PROTEIN 6.3 g/dL (6.3-8.3)
--- NOTE | 2017-05-06 18:56 | C.PDOC ---
History Of Present Illness 67 year old male presents to the ED c/o left shoulder pain after a syncope while standing in his kitchen and falling in his left side. Patient was discharged yesterday after being admitted from 05/03-05/05 for left lower lobe pneumonia, pleural effusion and right side PE. Patient reports not taking eliquis today. Otherwise, Patient denies fever, nausea, vomit, CP, SOB, abdominal pain, LOC, dizziness, weakness, numbness, saddle anesthesia, sensory or vascular deficits to B/L LEs. Time Seen by Provider: 05/06/17 16:08 Chief Complaint (Nursing): Syncope History Per: Patient History/Exam Limitations: no limitations Onset/Duration Of Symptoms: Hrs Current Symptoms Are (Timing): Gone Number Of Syncopal Episodes: 1 Activity At Onset Of Symptoms: Standing Associated Symptoms Preceding Syncopal Episode: No Predromal Symptoms (Sudden Onset) Seizure Or Post-ictal Symptoms: None Possible Causative Factor(s): Lightheaded W/Standing Fall Associated With With Symptoms: Yes (Fall on his left side) Recent travel outside of the [place]: No Additional History Per: Patient Past Medical History Reviewed: Historical Data, Nursing Documentation, Vital Signs Vital Signs: Last Vital Signs Temp 97.9 F 05/06/17 20:14 Pulse 55 L 05/06/17 20:14 Resp 17 05/06/17 20:14 BP 142/67 05/06/17 20:14 Pulse Ox 95 05/06/17 21:08 - Medical History PMH: Anxiety, Asthma, COPD, HTN, Hyperlipidemia, Kidney Stones Surgical History: No Surg Hx Family History: States: Unknown Family Hx - Social History Hx Alcohol Use: Yes Hx Substance Use: No - Immunization History Hx Tetanus Toxoid Vaccination: No Hx Influenza Vaccination: No Hx Pneumococcal Vaccination: No Review Of Systems Constitutional: Negative for: Fever, Chills Eyes: Negative for: Vision Change Cardiovascular: Negative for: Chest Pain, Palpitations Respiratory: Negative for: Cough, Shortness of Breath Gastrointestinal: Negative for: Nausea, Vomiting, Abdominal Pain Genitourinary: Negative for: Dysuria, Incontinence Skin: Negative for: Rash Neurological: Negative for: Weakness, Numbness, Change in Speech, Headache, Dizziness Physical Exam - Physical Exam Appears: Other (Obese, white male, hard hearing) Skin: Normal Color, Warm, Dry Head: No Other (Contusion left head) Eye(s): bilateral: Normal Inspection, PERRL, EOMI Nose: No Discharge, No Deformity Oral Mucosa: Moist, No Drooling Throat: Normal, No Erythema, No Exudate Neck: Normal ROM, No Supple Chest: Symmetrical Cardiovascular: Rhythm Regular, No Murmur Respiratory: Decreased Breath Sounds (Left lower base), No Rales, No Rhonchi, No Wheezing Gastrointestinal/Abdominal: Tenderness (LUQ as before), Other (Obese) Back: No CVA Tenderness Extremity: No Normal ROM (Painful left shoulder), No Swelling, Other (Contusion , ecchymosis left shoulder deltoid area) Extremity: Bilateral: Other (Obese lower extremities) Neurological/Psych: Oriented x3, Normal Speech, Normal Cognition ED Course And Treatment - Laboratory Results Result Diagrams: 05/06/17 17:17 05/06/17 17:17 Lab Interpretation: Abnormal ECG: Interpreted By Me ECG Rhythm: Sinus Rhythm ECG Interpretation: Normal Rate From EC O2 Sat by Pulse Oximetry: 95 (On RA) Pulse Ox Interpretation: Normal - Radiology CXR: Interpreted by Me CXR Interpretation: Yes: No Acute Disease, Other (small L effusion, no PNA noted.) - Other Rad X-Ray - Left Shoulder X-Ray: Viewed By Me, Read By Radiologist Interpretation: PROCEDURE: Radiographs of the Left Shoulder. HISTORY: fall from standing, L lateral shoulder pain. COMPARISON: No prior. FINDINGS: BONES: Normal. No fracture. 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 SOFT TISSUES: Normal. OTHER FINDINGS: None. IMPRESSION: No evidence of acute fracture or dislocation - CT Scan/US CT Head Other Rad Studies (CT/US): Interpreted By Me, Read By Radiologist, Radiology Report Reviewed CT/US Interpretation: IMPRESSION: No acute intracranial hemorrhage, or suspicious mass effect. CT angio chest Other Rad Studies (CT/US): Interpreted By Me, Read By Radiologist, Radiology Report Reviewed CT/US Interpretation: IMPRESSION: Stable right-sided pulmonary emboli with interval development of significant right heart strain (by CT. criteria), when compared with previous examination, for which echocardiogram may be performed for. confirmation. Decreased left-sided pleural effusion with adjacent compressive atelectasis. Progress Note: Tramadol, Eliquis Reevaluation Time: 21:43 Reassessment Condition: Unchanged - Physician Consult Information Outcome Of Conversation: 1629 and 2129, d/w star Douglas to admit. 2129: d/w Medicine Williams Medical Decision Making Medical Decision Making: Impression : 67 y/o male presents after a syncope at home. 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 No worstning pna/L effusion, antibiotics per admitting team. Disposition Doctor Will See Patient In The: Hospital Counseled Patient/Family Regarding: Studies Performed, Diagnosis - Disposition Disposition: HOSPITALIZED Disposition Time: 21:49 Condition: GOOD Forms: [facility] ([place]) - Clinical Impression Clinical Impression: Syncope, Shoulder contusion, Pulmonary embolism - Scribe Statement The provider has reviewed the documentation as recorded by the Scribe Tomy Roberts All medical record entries made by the Scribe were at my direction and personally dictated by me. I have reviewed the chart and agree that the record accurately reflects my personal performance of the history, physical exam, medical decision making, and the department course for this patient. I have also personally directed, reviewed, and agree with the discharge instructions and disposition.
--- NOTE | 2017-05-06 20:34 | CT ---
EXAM: CT Head Without Intravenous Contrast CLINICAL HISTORY: 67 years old, male; Injury or trauma and signs and symptoms; Fall; Initial encounter; Concussion / head injury; Syncope and collapse; Additional info: Syncope, on eliquis TECHNIQUE: Axial computed tomography images of the head/brain without intravenous contrast. All CT scans at this facility use one or more dose reduction techniques, viz.: automated exposure control; ma/kV adjustment per patient size (including targeted exams where dose is matched to indication; i.e. head); or iterative reconstruction technique. Coronal and sagittal reformatted images were created and reviewed. COMPARISON: No relevant prior studies available. FINDINGS: Brain: No acute intracranial hemorrhage. Age-appropriate periventricular white matter disease. No edema. Ventricles: Age-appropriate ventriculomegaly. Bones: No acute displaced fracture. Sinuses: Unremarkable as visualized. No acute sinusitis. Mastoid air cells: Unremarkable as visualized. No mastoid effusion. IMPRESSION: No acute intracranial hemorrhage, or suspicious mass effect.
--- NOTE | 2017-05-06 20:56 | CT ---
EXAM: CT Angiography Chest With Intravenous Contrast CLINICAL HISTORY: 67 years old, male; Pain and condition or disease; Lung condition and disease; Pulmonary embolism; Chest pressure; Additional info: R pe from 05/03, on eliquis, now syncope, ? worse TECHNIQUE: Axial computed tomographic angiography images of the chest with intravenous contrast using pulmonary embolism protocol. All CT scans at this facility use one or more dose reduction techniques, viz.: automated exposure control; ma/kV adjustment per patient size (including targeted exams where dose is matched to indication; i.e. head); or iterative reconstruction technique. MIP reconstructed images were created and reviewed. Coronal and sagittal reformatted images were created and reviewed. CONTRAST: 100 mL of OMNIPAQUE 350 administered intravenously. COMPARISON: CT - ANGIO CHEST PE PROTOCOL 2017-05-03 22:25 FINDINGS: Pulmonary arteries: Persistent right-sided pulmonary embolus, unchanged when compared with previous examination performed 05/03/2017. Additional filling defects within the segmental and subsegmental branches of the right pulmonary artery, also unchanged. No left-sided pulmonary embolus is detected. Aorta: No thoracic aortic aneurysm. Lungs: Moderate left-sided pleural effusion (decreased in size when compared with previous examination), with persistent adjacent compressive atelectasis. Pleural spaces: No significant effusion. No pneumothorax. Heart: Cardiomegaly, without significant pericardial effusion. Interval development of right heart dysfunction, with bowing of the interventricular septum. The right atrium to left atrium ratio is greater than one, consistent with significant right heart strain. Reflux of intravenous contrast into the hepatic veins is also identified. Bones: No acute fracture. Old right-sided rib fractures again identified. Lymph nodes: No pathologically enlarged lymph nodes. IMPRESSION: Stable right-sided pulmonary emboli with interval development of significant right heart strain (by CT criteria), when compared with previous examination, for which echocardiogram may be performed for confirmation. Decreased left-sided pleural effusion with adjacent compressive atelectasis.
[2017-05-06] MEDS ORDERED: Benzoin Compound Tincture (60 ml) ONE (23:51)
--- NOTE | 2017-05-07 01:51 | CP.PCM.HP ---
History of Present Illness - History of Present Illness History of Present Illness: CC: Syncopal episode Patient is a 67 y/o M with PMHx of anxiety, asthma, COPD, HTN, HLD, kidney stones, and recent PE who was discharged from the hospital on 05/06 after being admitted for left lower lobe pneumonia, pleural effusion, and right side PE. Patient was feeling good this morning when he woke up. Patient took all of his medications this morning (except for the Eliquis which his was getting from the pharmacy) and ate breakfast around 10:30. About one hour later patient was walking to his kitchen to get some fruit when he started to feel lightheaded and like the room was going black. He could tell he was going to faint and tried to sit down, but thinks he fell. Patient awoke on the floor on his left side. No one was home at the time of the fall. Patient called his who called an ambulance for him. Patient was no longer lightheaded but had pain in his left shoulder from the fall. In the ED patient says he did not feel short of breath, but that his oxygen saturation decreased some and he needed to be put on nasal cannula. Patient denies headache, change in vision, shortness of breath, chest pain, abdominal pain, nausea, vomiting, constipation, or diarrhea. Patient still has pain on his left side and shoulder from the fall. PMHx: anxiety, asthma, COPD, HTN, Hyperlipidemia, Kidney Stones, PE PSHx: Bilateral rotator cuff repair ( Left rotator cuff on 04/16/17), Umbilical hernia, right inguinal hernia and Left knee surgery FHx: HTN Medications: HCTZ 12.5mg PO daily, Meloxicam 15mg PO daily, Simvastatin 40mg PO daily, Metoprolol 12.5mg PO daily and Doxazosin 2mg PO daily Social Hx: lives with and son. Former smoker (15 year, 1ppd), denies ETOH and illicit drugs use Present on Admission - Present on Admission Any Indicators Present on Admission: Yes History of DVT/PE: Yes History of Uncontrolled Diabetes: No Urinary Catheter: No Decubitus Ulcer Present: No Review of Systems - Constitutional Constitutional: Fatigue. absent: Headache - EENT Eyes: absent: Blurred Vision, Change in Vision, Diplopia - Cardiovascular Cardiovascular: Syncope. absent: Chest Pain, Diaphoresis, Irregular Heart Rhythm, Leg Edema, Palpitations - Respiratory Respiratory: Dyspnea. absent: Cough, Wheezing, Stridor - Gastrointestinal Gastrointestinal: absent: Abdominal Pain, Constipation, Diarrhea, Nausea, Vomiting - Genitourinary Genitourinary: absent: Difficulty Urinating - Musculoskeletal Additional comments: left shoulder pain - Integumentary Integumentary: absent: Rash - Neurological Neurological: absent: Dizziness - Psychiatric Psychiatric: Anxiety Past Patient History - Past Social History Smoking Status: Never Smoked - CARDIAC Hx Hypertension: Yes - PULMONARY Hx Asthma: Yes Hx Chronic Obstructive Pulmonary Disease (COPD): Yes - NEUROLOGICAL Hx Neurological Disorder: No - HEENT Hx HEENT Problems: No - RENAL Hx Kidney Stones: Yes - ENDOCRINE/METABOLIC Hx Endocrine Disorders: No - HEMATOLOGICAL/ONCOLOGICAL Hx Blood Transfusions: No - INTEGUMENTARY Hx Dermatological Problems: No - MUSCULOSKELETAL/RHEUMATOLOGICAL Hx Musculoskeletal Disorders: No Hx Falls: No - GASTROINTESTINAL Hx Gastrointestinal Disorders: No - GENITOURINARY/GYNECOLOGICAL Hx Genitourinary Disorders: No - PSYCHIATRIC Hx Anxiety: Yes Hx Substance Use: No - SURGICAL HISTORY Hx Orthopedic Surgery: Yes (B/L SHOULDER, LEFT KNEE) Other/Comment: LEFT EAR, LEFT ARM MUSCLE, LITHROTRIPSY - ANESTHESIA Hx Anesthesia: Yes Hx Anesthesia Reactions: No Hx Malignant Hyperthermia: No Meds Allergies/Adverse Reactions: Allergies Allergy/AdvReac Type Severity Reaction Status Date / Time clindamycin Allergy Verified 05/06/17 16:12 Physical Exam - Constitutional Appears: Non-toxic, No Acute Distress - Head Exam Head Exam: ATRAUMATIC, NORMAL INSPECTION, NORMOCEPHALIC - Eye Exam Eye Exam: EOMI, Normal appearance - ENT Exam ENT Exam: Mucous Membranes Moist - Respiratory Exam Respiratory Exam: Decreased Breath Sounds, Clear to Auscultation Bilateral, NORMAL BREATHING PATTERN - Cardiovascular Exam Cardiovascular Exam: REGULAR RHYTHM, +S1, +S2 - GI/Abdominal Exam GI & Abdominal Exam: Distended, Normal Bowel Sounds, Soft. absent: Tenderness - Extremities Exam Extremities exam: Positive for: normal inspection. Negative for: pedal edema - Neurological Exam Neurological exam: Alert, Oriented x3 - Psychiatric Exam Psychiatric exam: Anxious, Normal Affect - Skin Skin Exam: Intact, Normal Color, Warm Results - Vital Signs Recent Vital Signs: Last Vital Signs Temp 97.9 F 05/06/17 20:14 Pulse 60 05/07/17 00:38 Resp 19 05/07/17 00:38 BP 132/27 L 05/07/17 00:38 Pulse Ox 92 L 05/07/17 00:38 - Labs Result Diagrams: 05/07/17 06:08 05/07/17 06:08 Labs: Laboratory Results - last 24 hr 05/06/17 05/06/17 05/06/17 16:35 17:17 17:17 WBC 12.0 H RBC 4.72 Hgb 12.8 Hct 39.6 MCV 83.9 MCH 27.1 MCHC 32.3 L RDW 19.3 H Plt Count 288 MPV 7.4 Neut % (Auto) 77.4 H Lymph % (Auto) 11.6 L [place] % (Auto) 10.7 H Eos % (Auto) 0.1 Baso % (Auto) 0.2 Neut # 9.3 H Lymph # 1.4 [place] # 1.3 H Eos # 0.0 Baso # 0.0 PT 10.6 INR 1.0 APTT 21 Sodium Potassium Chloride Carbon Dioxide Anion Gap BUN Creatinine Est GFR ( Amer) Est GFR (Non-Af Amer) POC Glucose (mg/dL) 85 Random Glucose Hemoglobin A1c Calcium Total Bilirubin AST ALT Alkaline Phosphatase Troponin I Total Protein Albumin Globulin Albumin/Globulin Ratio Triglycerides Cholesterol LDL Cholesterol Direct HDL Cholesterol Blood Type Antibody Screen 05/06/17 05/06/17 05/06/17 17:17 17:17 17:17 WBC RBC Hgb Hct MCV MCH MCHC RDW Plt Count MPV Neut % (Auto) Lymph % (Auto) [place] % (Auto) Eos % (Auto) Baso % (Auto) Neut # Lymph # [place] # Eos # Baso # PT INR APTT Sodium 134 Potassium 3.6 Chloride 98 Carbon Dioxide 26 Anion Gap 15 BUN 40 H Creatinine 0.9 Est GFR ( Amer) > 60 Est GFR (Non-Af Amer) > 60 POC Glucose (mg/dL) Random Glucose 76 Hemoglobin A1c 6.4 Calcium 7.8 L Total Bilirubin 1.0 AST 30 ALT 39 Alkaline Phosphatase 57 Troponin I < 0.0120 Total Protein 6.3 Albumin 3.9 Globulin 2.4 Albumin/Globulin Ratio 1.6 Triglycerides 315 H D Cholesterol 136 LDL Cholesterol Direct 50 HDL Cholesterol 53 Blood Type B POSITIVE Antibody Screen Negative Assessment & Plan - Assessment and Plan (Free Text) Assessment: Syncopal Episode Head CT: no acute intracranial hemorrhage, or suspicious mass effect. PE CT Chest (05/06): stable right sided pulmonary emboli with interval development of significant right heart strain. * hold Eliquis * start Heparin in AM, after speaking with IR * IR consulted, , help appreciated Pneumonia; resolving CT Chest (05/06): decreased left sided pleural effusion with adjacent compressive atelectasis * Azithromycin 250mg po daily * Robitussin with Codeine Right Shoulder Pain Shoulder xray: no evidence of acute fracture or dislocation History of hypertension Continue home medications: * HCTZ 12.5mg PO daily * Metoprolol Succinate 12.5mg po daily History of hyperlipidemia Continue home medication: * Crestor 20mg po daily History of anxiety Continue home medications: * Sertraline 100mg PO daily Hx Asthma Continue home medications: * Proventil * Duonebs q4h PRN History of urinary retention Continue home medication: * Doxazosin 2mg po daily Prophylactic measure GI: Protonix 20mg PO daily DVT: SCDs Florastor 250mg PO BID Hearty healthy diet
[2017-05-07] MEDS ORDERED: guaiFENesin-Codeine 100-10mg/5ml Syrup (10ml) UD PO PRN (03:18)
[2017-05-07] MEDS ORDERED: Albuterol-Ipratrop 3 mg / 0.5 (3 ml) UD IH PRN (03:18)
[2017-05-07] MEDS ORDERED: Albuterol HFA 90 mcg/actuation (8 g) IH PRN ×2 (03:18→12:15)
[2017-05-07 06:13] LABS: BASO % 0.5 % (0.0-2.0); EOS # 0.1 K/uL (0.0-0.7); EOS % 1.1 % (0.0-4.0); HEMATOCRIT 36.7 % (35.0-51.0); LYMPH # 1.4 K/uL (1.0-4.3); LYMPH % 13.5 % (20.0-40.0); MEAN CELL VOLUME 83.6 fL (80.0-94.0); MEAN CORPUSCULAR HGB CONC 33.5 g/dL (33.0-37.0); MEAN PLATELET VOLUME 7.5 fL (7.2-11.7); MONO # 1.1 K/uL (0.0-0.8); MONO % 10.4 % (0.0-10.0); NRBC % 0.1 % (0.0-2.0); RED CELL DISTRIBUTION WIDTH 19.4 % (11.5-14.5); WHITE BLOOD COUNT 10.1 K/uL (4.8-10.8)
[2017-05-07 06:33] LABS: ALB/GLOB RATIO 1.8 (1.0-2.1); ALKALINE PHOSPHATASE 66 U/L (38-126); ALT/SGPT 43 U/L (21-72); AST/SGOT 19 U/L (17-59); BILIRUBIN,TOTAL 0.8 mg/dL (0.2-1.3); BLOOD UREA NITROGEN 37 mg/dL (9-20); CALCIUM 7.9 mg/dl (8.6-10.4); CARBON DIOXIDE 24 mmol/L (22-30); CHLORIDE 101 mmol/L (98-107); GFR AFRICAN-AMERICAN > 60; GLUCOSE,RANDOM 101 mg/dL (75-110); MAGNESIUM 2.1 mg/dL (1.6-2.3); PHOSPHOROUS 5.4 mg/dL (2.5-4.5); POTASSIUM 3.5 mmol/L (3.6-5.2); SODIUM 134 mmol/L (132-148); TOTAL PROTEIN 5.3 g/dL (6.3-8.3)
--- NOTE | 2017-05-07 08:58 | RAD ---
HISTORY: adm COMPARISON: CT angiography of the chest dated 05/03/2017. FINDINGS: LUNGS: No active pulmonary disease. PLEURA: No significant pleural effusion identified, no pneumothorax apparent. CARDIOVASCULAR: Stably enlarged cardiomediastinal silhouette. OSSEOUS STRUCTURES: No significant abnormalities. VISUALIZED UPPER ABDOMEN: Normal. OTHER FINDINGS: None. IMPRESSION: No active disease.
[2017-05-07] MEDS: Albuterol-Ipratrop 3 mg / 0.5 (3 ml) UD INH PRN (10:00)
[2017-05-07] MEDS: Pantoprazole 20 mg EC Tab PO SCH (10:05)
[2017-05-07] MEDS: Metoprolol Succinate 12.5 mg XL PO SCH (10:05)
[2017-05-07] MEDS ORDERED: Propofol 10 mg/ml Inj (20 ML) ONE (10:25)
[2017-05-07] MEDS ORDERED: Midazolam 2 MG/2 ML VIAL ONE (10:25)
[2017-05-07] MEDS: Saccharomyces Boulardi 250 mg Cap PO SCH ×2 (10:41→17:09)
--- NOTE | 2017-05-07 10:53 | PCM.IRP ---
History of Present Illness - History of Present Illness History of Present Illness: IR requested to evaluate Mr. Ocampo for IR intervention. THe CT scan was reviewed. Pt has non-occlusive PE in the right lower lobar and segmental pulmonary artery. There is no RV strain by CT criteria. Recommend anticoagulation. There is no role for systemic TPA or catheter directed therapy in this case. Objective - Vital Signs/Intake and Output Vital Signs (last 24 hours): Vital Signs - 24 hr 05/06/17 05/06/17 05/06/17 16:08 20:14 21:50 Temperature 97.9 F Pulse Rate 62 55 L Respiratory 20 17 Rate Blood Pressure 104/56 L 142/67 O2 Sat by Pulse 95 96 95 Oximetry 05/07/17 05/07/17 05/07/17 00:38 02:20 04:36 Temperature 97.8 F Pulse Rate 60 62 64 Respiratory 19 16 Rate Blood Pressure 132/27 L 127/60 O2 Sat by Pulse 92 L 96 Oximetry 05/07/17 05/07/17 05/07/17 05:28 07:20 07:45 Temperature 97.9 F Pulse Rate 64 63 Respiratory 20 20 Rate Blood Pressure 143/62 O2 Sat by Pulse 97 Oximetry 05/07/17 10:42 Temperature Pulse Rate 76 Respiratory 18 Rate Blood Pressure 121/57 L O2 Sat by Pulse 97 Oximetry Intake and Output (last 12 hours): Intake & Output 05/06/17 05/07/17 05/07/17 18:59 06:59 18:59 Output Total 520 Balance -520 Weight 272 lb Output: Urine 520 Other: Voiding Method Urinal - Medications Medications: Current Medications Albuterol (Ventolin Hfa 90 Mcg/Actuation (8 G)) 2 puff IH Q6H PRN PRN Reason: SOB Albuterol/Ipratropium (Duoneb 3 Mg/0.5 Mg (3 Ml) Ud) 3 ml INH RQ4 PRN PRN Reason: Shortness of Breath Last Admin: 05/07/17 10:00 Dose: 3 ml Azithromycin (Zithromax) 250 mg PO DAILY [facility] Last Admin: 05/07/17 10:05 Dose: 250 mg Doxazosin Mesylate (Cardura) 2 mg PO DAILY [facility] Last Admin: 05/07/17 10:05 Dose: 2 mg Guaifenesin/Codeine Phosphate (Guaifenesin/Codeine) 10 ml PO Q6H PRN PRN Reason: Cough Hydrochlorothiazide (Microzide) 12.5 mg PO DAILY [facility] Last Admin: 05/07/17 10:05 Dose: 12.5 mg Metoprolol Succinate (Toprol Xl) 12.5 mg PO DAILY [facility] Last Admin: 05/07/17 10:05 Dose: 12.5 mg Pantoprazole Sodium (Protonix Ec Tab) 20 mg PO DAILY [facility] Last Admin: 05/07/17 10:05 Dose: 20 mg Pneumococcal Polyvalent Vaccine (Pneumovax 23 Vaccine) 0.5 ml IM .ONCE ONE Stop: 05/09/17 10:01 Rosuvastatin Calcium (Crestor) 20 mg PO [facility] Saccharomyces Boulardii (Florastor) 250 mg PO BID [facility] Last Admin: 05/07/17 10:41 Dose: Not Given Sertraline HCl (Zoloft) 100 mg PO DAILY [facility] Last Admin: 05/07/17 10:05 Dose: 100 mg - Labs Labs (last 24 hours): Laboratory Results - last 24 hr 05/06/17 05/06/17 05/06/17 16:35 17:17 17:17 WBC 12.0 H RBC 4.72 Hgb 12.8 Hct 39.6 MCV 83.9 MCH 27.1 MCHC 32.3 L RDW 19.3 H Plt Count 288 MPV 7.4 Neut % (Auto) 77.4 H Lymph % (Auto) 11.6 L [place] % (Auto) 10.7 H Eos % (Auto) 0.1 Baso % (Auto) 0.2 Neut # 9.3 H Lymph # 1.4 [place] # 1.3 H Eos # 0.0 Baso # 0.0 PT 10.6 INR 1.0 APTT 21 Sodium Potassium Chloride Carbon Dioxide Anion Gap BUN Creatinine Est GFR ( Amer) Est GFR (Non-Af Amer) POC Glucose (mg/dL) 85 Random Glucose Hemoglobin A1c Calcium Phosphorus Magnesium Total Bilirubin AST ALT Alkaline Phosphatase Troponin I Total Protein Albumin Globulin Albumin/Globulin Ratio Triglycerides Cholesterol LDL Cholesterol Direct HDL Cholesterol Blood Type Antibody Screen 05/06/17 05/06/17 05/06/17 17:17 17:17 17:17 WBC RBC Hgb Hct MCV MCH MCHC RDW Plt Count MPV Neut % (Auto) Lymph % (Auto) [place] % (Auto) Eos % (Auto) Baso % (Auto) Neut # Lymph # [place] # Eos # Baso # PT INR APTT Sodium 134 Potassium 3.6 Chloride 98 Carbon Dioxide 26 Anion Gap 15 BUN 40 H Creatinine 0.9 Est GFR ( Amer) > 60 Est GFR (Non-Af Amer) > 60 POC Glucose (mg/dL) Random Glucose 76 Hemoglobin A1c 6.4 Calcium 7.8 L Phosphorus Magnesium Total Bilirubin 1.0 AST 30 ALT 39 Alkaline Phosphatase 57 Troponin I < 0.0120 Total Protein 6.3 Albumin 3.9 Globulin 2.4 Albumin/Globulin Ratio 1.6 Triglycerides 315 H D Cholesterol 136 LDL Cholesterol Direct 50 HDL Cholesterol 53 Blood Type B POSITIVE Antibody Screen Negative 05/07/17 05/07/17 06:08 06:08 WBC 10.1 RBC 4.40 Hgb 12.3 Hct 36.7 MCV 83.6 MCH 28.0 MCHC 33.5 RDW 19.4 H Plt Count 242 MPV 7.5 Neut % (Auto) 74.5 Lymph % (Auto) 13.5 L [place] % (Auto) 10.4 H Eos % (Auto) 1.1 Baso % (Auto) 0.5 Neut # 7.5 H Lymph # 1.4 [place] # 1.1 H Eos # 0.1 Baso # 0.0 PT INR APTT Sodium 134 Potassium 3.5 L Chloride 101 Carbon Dioxide 24 Anion Gap 12 BUN 37 H Creatinine 0.9 Est GFR ( Amer) > 60 Est GFR (Non-Af Amer) > 60 POC Glucose (mg/dL) Random Glucose 101 Hemoglobin A1c Calcium 7.9 L Phosphorus 5.4 H Magnesium 2.1 Total Bilirubin 0.8 AST 19 ALT 43 Alkaline Phosphatase 66 Troponin I Total Protein 5.3 L Albumin 3.5 Globulin 1.9 L Albumin/Globulin Ratio 1.8 Triglycerides Cholesterol LDL Cholesterol Direct HDL Cholesterol Blood Type Antibody Screen
--- NOTE | 2017-05-07 11:06 | CP.PCM.PN ---
Subjective - Date & Time of Evaluation Date of Evaluation: 05/07/17 Time of Evaluation: 09:00 - Subjective Subjective: Medicine Note ( PGY-1)-----> Dr. Cheng's service Patient was seen and examined at bedside in the ED. Patients states that he is doing better after administration of pain medication. Patient admits to dizziness, pleuritic chest pain, cough, mild SOB and chest pain. Patient denies fever, chills, nausea, vomiting, abdominal pain. Objective - Vital Signs/Intake and Output Vital Signs (last 24 hours): Temp Pulse Resp BP Pulse Ox 97.9 F 76 18 121/57 L 97 05/07/17 07:20 05/07/17 10:42 05/07/17 10:42 05/07/17 10:42 05/07/17 10:42 Intake and Output: 05/07/17 05/07/17 06:59 18:59 Output Total 520 Balance -520 - Medications Medications: Current Medications Albuterol (Ventolin Hfa 90 Mcg/Actuation (8 G)) 2 puff IH Q6H PRN PRN Reason: SOB Albuterol/Ipratropium (Duoneb 3 Mg/0.5 Mg (3 Ml) Ud) 3 ml INH RQ4 PRN PRN Reason: Shortness of Breath Last Admin: 05/07/17 10:00 Dose: 3 ml Azithromycin (Zithromax) 250 mg PO DAILY [facility] Last Admin: 05/07/17 10:05 Dose: 250 mg Doxazosin Mesylate (Cardura) 2 mg PO DAILY [facility] Last Admin: 05/07/17 10:05 Dose: 2 mg Guaifenesin/Codeine Phosphate (Guaifenesin/Codeine) 10 ml PO Q6H PRN PRN Reason: Cough Hydrochlorothiazide (Microzide) 12.5 mg PO DAILY [facility] Last Admin: 05/07/17 10:05 Dose: 12.5 mg Metoprolol Succinate (Toprol Xl) 12.5 mg PO DAILY [facility] Last Admin: 05/07/17 10:05 Dose: 12.5 mg Pantoprazole Sodium (Protonix Ec Tab) 20 mg PO DAILY [facility] Last Admin: 05/07/17 10:05 Dose: 20 mg Pneumococcal Polyvalent Vaccine (Pneumovax 23 Vaccine) 0.5 ml IM .ONCE ONE Stop: 05/09/17 10:01 Rosuvastatin Calcium (Crestor) 20 mg PO [facility] Saccharomyces Boulardii (Florastor) 250 mg PO BID [facility] Last Admin: 05/07/17 10:41 Dose: Not Given Sertraline HCl (Zoloft) 100 mg PO DAILY [facility] Last Admin: 05/07/17 10:05 Dose: 100 mg - Labs Labs: 05/07/17 06:08 05/07/17 06:08 PT 10.6 SECONDS (9.7-12.2) 05/06/17 17:17 INR 1.0 05/06/17 17:17 APTT 21 SECONDS (21-34) 05/06/17 17:17 - Constitutional Appears: Well - Head Exam Head Exam: ATRAUMATIC - Eye Exam Eye Exam: EOMI - ENT Exam ENT Exam: Mucous Membranes Moist - Respiratory Exam Respiratory Exam: Clear to Ausculation Bilateral, NORMAL BREATHING PATTERN - Cardiovascular Exam Cardiovascular Exam: REGULAR RHYTHM, +S1, +S2 - GI/Abdominal Exam GI & Abdominal Exam: Normal Bowel Sounds - Extremities Exam Extremities Exam: absent: Pedal Edema - Neurological Exam Neurological Exam: Alert, Awake, Oriented x3 - Psychiatric Exam Psychiatric exam: Normal Affect - Skin Skin Exam: Normal Color Assessment and Plan (1) Pulmonary embolism Assessment & Plan: IR Consult, ---> Help appreciated * As per evaluation: Patient has non-occlusive PE in the right lower lobar and segmental pulmonary artery. There is no RV strain by CT criteria. Recommend anticoagulation. There is no role for systemic TPA or catheter directed therapy in this case. Imaging CT Chest (05/06): stable right sided pulmonary emboli with interval development of significant right heart strain. Decreased left-sided pleural effusion with adjacent compressive atelectasis. F/i echocardiogam Medications: * Eliquis 10mg PO daily BID ( stop date of 05/11/17) and then start eliquis 5mg PO daily Status: Acute (2) Syncope Assessment & Plan: AAOX3 Possibly secondary to PE Imaging Head CT (05/06/17): no acute intracranial hemorrhage, or suspicious mass effect. Status: Acute (3) Right shoulder pain Assessment & Plan: S/p right rotator cuff repair (04/16/17) Imaging: Shoulder xray: no evidence of acute fracture or dislocation Medication: * Motrin 600mg PO Q6H prn Status: Acute (4) Pneumonia Assessment & Plan: Resolving, prior discharge diagnosis Chest CT: Decreased left-sided pleural effusion with adjacent compressive atelectasis. Chest X-ray (05/06/17): No active disease. Mild infiltrates Medications: * Azithromycin 250mg po daily * Guaifenesin/Codeine 10ml PO Q6H PRN * Codeine 30mg PO Q6H PRN Status: Acute (5) History of asthma Assessment & Plan: Continue home medications: * Ventolin 2 puff [place] RQ6 PRN * Duonebs 3ml INK RQ4 PRN Status: Acute (6) History of hyperlipidemia Assessment & Plan: Continue home medication: * Crestor 20mg PO HS Status: Acute (7) History of hypertension Assessment & Plan: Continue home medications: * HCTZ 12.5mg PO daily * Metoprolol Succinate 12.5mg po daily Status: Acute (8) History of urinary retention Assessment & Plan: Continue home medication: * Doxazosin 2mg po daily Status: Acute (9) History of anxiety Assessment & Plan: Continue home medication: * Sertraline 100mg PO daily Status: Acute (10) Prophylactic measure Assessment & Plan: GI: Protonix 20mg PO daily DVT: SCDs, Eliquis 10mg PO BID Florastor 250mg PO BID Status: Acute
[2017-05-07 13:25] VITALS: RESP 20
[2017-05-07] MEDS ORDERED: Potassium Chloride 20 mEq ER Tab PO ONE (15:00)
[2017-05-08] MEDS: Albuterol-Ipratrop 3 mg / 0.5 (3 ml) UD INH PRN ×2 (07:34→13:16)
--- NOTE | 2017-05-08 07:47 | CARD ---
APPROVED REPORT EXAM: Two-dimensional and M-mode echocardiogram with Doppler and color Doppler. Other Information Quality : GoodRhythm : INDICATION Pulmonary Embolism Syncope 2D DIMENSIONS IVSd1.4 (0.7-1.1cm)LVDd5.1 (3.9-5.9cm) PWd1.2 (0.7-1.1cm)LVDs3.4 (2.5-4.0cm) FS (%) 34.2 %LVEF (%)62.8 (>50%) M-Mode DIMENSIONS Left Atrium (MM)5.63 (2.5-4.0cm)Aortic Root4.17 (2.2-3.7cm) Aortic Cusp Exc.2.91 (1.5-2.0cm) Aortic Valve AI P 1/2 [id number] Mitral Valve E/A ratio0.0 TDI E/Lateral E'0.0E/Medial E'0.0 Tricuspid Valve TR Peak [id number] Peak [id number] LEFT VENTRICLE The left ventricle is normal size. There is normal left ventricular wall thickness. Left ventricle systolic function is normal. The Ejection Fraction is 60-65%. There is normal LV segmental wall motion. The left ventricular diastolic function is normal. RIGHT VENTRICLE The right ventricle is normal size. There is normal right ventricular wall thickness. The right ventricular systolic function is normal. ATRIA The left atrium size is normal. The right atrium size is normal. The interatrial septum is intact with no evidence for an atrial septal defect. AORTIC VALVE The aortic valve is normal in structure. There is mild aortic regurgitation. There is no aortic valvular stenosis. MITRAL VALVE The mitral valve is normal in structure. There is no evidence of mitral valve prolapse. There is no mitral valve stenosis. There is no mitral valve regurgitation noted. TRICUSPID VALVE The tricuspid valve is normal in structure. There is mild tricuspid regurgitation. Right ventricular systolic pressure is estimated at 50-60 mmHg. There is moderate pulmonary hypertension. PULMONIC VALVE The pulmonic valve is not well visualized. There is no pulmonic valvular regurgitation. GREAT VESSELS The aortic root is normal in size. PERICARDIAL EFFUSION There is no significant pericardial effusion. <Conclusion> Left ventricle systolic function is normal. The Ejection Fraction is 60-65%. There is mild aortic regurgitation. There is no mitral valve regurgitation noted. There is mild tricuspid regurgitation. There is moderate pulmonary hypertension. There is no pulmonic valvular regurgitation.
[2017-05-08 08:22] LABS: ALB/GLOB RATIO 1.5 (1.0-2.1); ALKALINE PHOSPHATASE 65 U/L (38-126); ALT/SGPT 35 U/L (21-72); AST/SGOT 19 U/L (17-59); BLOOD UREA NITROGEN 26 mg/dL (9-20); CALCIUM 8.1 mg/dl (8.6-10.4); CARBON DIOXIDE 28 mmol/L (22-30); CHLORIDE 98 mmol/L (98-107); GFR AFRICAN-AMERICAN > 60; GLUCOSE,RANDOM 98 mg/dL (75-110); MAGNESIUM 2.1 mg/dL (1.6-2.3); PHOSPHOROUS 3.8 mg/dL (2.5-4.5); POTASSIUM 3.6 mmol/L (3.6-5.2); SODIUM 135 mmol/L (132-148)
[2017-05-08 08:27] LABS: BASO # 0.1 K/uL (0.0-0.2); BASO % 0.8 % (0.0-2.0); EOS # 0.5 K/uL (0.0-0.7); EOS % 4.2 % (0.0-4.0); LYMPH # 1.3 K/uL (1.0-4.3); LYMPH % 11.2 % (20.0-40.0); MEAN CELL VOLUME 83.1 fL (80.0-94.0); MEAN CORPUSCULAR HEMOGLOBIN 27.2 pg (27.0-31.0); MEAN CORPUSCULAR HGB CONC 32.7 g/dL (33.0-37.0); MEAN PLATELET VOLUME 7.7 fL (7.2-11.7); MONO # 0.7 K/uL (0.0-0.8); MONO % 6.2 % (0.0-10.0); NRBC % 0.1 % (0.0-2.0); WHITE BLOOD COUNT 11.2 K/uL (4.8-10.8)
[2017-05-08] MEDS: Saccharomyces Boulardi 250 mg Cap PO SCH ×2 (09:41→17:54)
[2017-05-08] MEDS: Metoprolol Succinate 12.5 mg XL PO SCH (09:42)
[2017-05-08] MEDS: Pantoprazole 20 mg EC Tab PO SCH (09:42)
--- NOTE | 2017-05-08 10:41 | CP.PCM.CON ---
History of Present Illness - History of Present Illness History of Present Illness: Reason for consultation: recent PE, pleural effusion, pneumonia 67 y/o M with a PMHx of HTN, hyperlipidemia, anxiety, kidney stones, pneumonia, arthritis, pleural effusions and PE presents with syncope and fall s/p discharge from hospital one day prior for lower lobe pneumonia, pleural effusion and PE. Pt was at home and when he got up to get a snack he felt dizzy and ended up falling on his left side. Patient was seen and examined at bedside. Patient sitting comfortably. Patient says he is feeling better much better today. Patient complaining of rib and left shoulder pain from where he fell and sustained a large hematoma. He is complaining of generalized chronic pain. Denies fever, chills, dizziness, cough , SOB, abdominal pain, n/v, diarrhea, constipation and dysuria. Allergies: Clindamycin PMHx: HTN, hyperlipidemia, COPD, kidney stones, hernia, anxiety, arthritis. PSHx: knee replacement, 2 rotator cuff surgeries, hernia repairs SocialHx: Patient is a former smoker (20 year pack hx). 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 A Review of Systems - Review of Systems All systems: reviewed and no additional remarkable complaints except (chest pain ) Past Patient History - Past Social History Smoking Status: Former Smoker - CARDIAC Hx Hypercholesterolemia: Yes Hx Hypertension: Yes - PULMONARY Hx Asthma: Yes Hx Chronic Obstructive Pulmonary Disease (COPD): Yes - NEUROLOGICAL Hx Neurological Disorder: No - HEENT Hx HEENT Problems: No - RENAL Hx Kidney Stones: Yes - ENDOCRINE/METABOLIC Hx Endocrine Disorders: No - HEMATOLOGICAL/ONCOLOGICAL Hx Blood Transfusions: No - INTEGUMENTARY Hx Dermatological Problems: No - MUSCULOSKELETAL/RHEUMATOLOGICAL Hx Musculoskeletal Disorders: Yes Hx Falls: Yes - GASTROINTESTINAL Hx Gastrointestinal Disorders: No - GENITOURINARY/GYNECOLOGICAL Hx Genitourinary Disorders: No - PSYCHIATRIC Hx Anxiety: Yes Hx Substance Use: No - SURGICAL HISTORY Hx Orthopedic Surgery: Yes (B/L SHOULDER, LEFT KNEE) Other/Comment: LEFT EAR, LEFT ARM MUSCLE, LITHROTRIPSY - ANESTHESIA Hx Anesthesia: Yes Hx Anesthesia Reactions: No Hx Malignant Hyperthermia: No Meds Allergies/Adverse Reactions: Allergies Allergy/AdvReac Type Severity Reaction Status Date / Time clindamycin Allergy Verified 05/06/17 16:12 - Medications Medications: Current Medications Albuterol (Ventolin Hfa 90 Mcg/Actuation (8 G)) 2 puff IH RQ6 PRN PRN Reason: SOB Last Admin: 05/07/17 12:45 Dose: 2 puff Albuterol/Ipratropium (Duoneb 3 Mg/0.5 Mg (3 Ml) Ud) 3 ml INH RQ4 PRN PRN Reason: Shortness of Breath Last Admin: 05/08/17 07:34 Dose: 3 ml Apixaban (Eliquis) 10 mg PO BID [facility] Stop: 05/11/17 23:55 Last Admin: 05/08/17 09:42 Dose: 10 mg Azithromycin (Zithromax) 250 mg PO DAILY [facility] Last Admin: 05/08/17 09:41 Dose: 250 mg Codeine Sulfate (Codeine) 30 mg PO Q6H [facility] Last Admin: 05/08/17 05:45 Dose: 30 mg Doxazosin Mesylate (Cardura) 2 mg PO DAILY [facility] Last Admin: 05/08/17 09:41 Dose: 2 mg Guaifenesin/Codeine Phosphate (Guaifenesin/Codeine) 10 ml PO Q6H PRN PRN Reason: Cough Hydrochlorothiazide (Microzide) 12.5 mg PO DAILY [facility] Last Admin: 05/08/17 09:41 Dose: 12.5 mg Ibuprofen (Motrin Tab) 600 mg PO Q6H PRN PRN Reason: Pain, moderate (4-7) Last Admin: 05/07/17 12:21 Dose: 600 mg Metoprolol Succinate (Toprol Xl) 12.5 mg PO DAILY [facility] Last Admin: 05/08/17 09:42 Dose: 12.5 mg Pantoprazole Sodium (Protonix Ec Tab) 20 mg PO DAILY [facility] Last Admin: 05/08/17 09:42 Dose: 20 mg Pneumococcal Polyvalent Vaccine (Pneumovax 23 Vaccine) 0.5 ml IM .ONCE ONE Stop: 05/09/17 10:01 Rosuvastatin Calcium (Crestor) 20 mg PO HS [facility] Last Admin: 05/07/17 23:01 Dose: 20 mg Saccharomyces Boulardii (Florastor) 250 mg PO BID [facility] Last Admin: 05/08/17 09:41 Dose: 250 mg Sertraline HCl (Zoloft) 100 mg PO DAILY [facility] Last Admin: 05/08/17 09:42 Dose: 100 mg Physical Exam - Head Exam Head Exam: ATRAUMATIC, NORMOCEPHALIC - Eye Exam Eye Exam: Normal appearance - ENT Exam ENT Exam: Mucous Membranes Moist - Neck Exam Neck exam: Positive for: Normal Inspection - Respiratory Exam Respiratory Exam: Decreased Breath Sounds - Cardiovascular Exam Cardiovascular Exam: REGULAR RHYTHM - GI/Abdominal Exam GI & Abdominal Exam: Normal Bowel Sounds, Soft - Extremities Exam Extremities exam: Positive for: normal inspection Results - Vital Signs Recent Vital Signs: Last Vital Signs Temp 97.7 F 05/08/17 08:34 Pulse 88 05/08/17 09:40 Resp 20 05/08/17 09:40 BP 141/70 05/08/17 09:40 Pulse Ox 96 05/08/17 09:40 - Labs Result Diagrams: 05/09/17 08:18 05/09/17 08:18 Labs: Laboratory Results - last 24 hr 05/08/17 05/08/17 08:02 08:02 WBC 11.2 H RBC 4.81 Hgb 13.1 Hct 40.0 MCV 83.1 MCH 27.2 MCHC 32.7 L RDW 19.0 H Plt Count 261 MPV 7.7 Neut % (Auto) 77.6 H Lymph % (Auto) 11.2 L [place] % (Auto) 6.2 Eos % (Auto) 4.2 H Baso % (Auto) 0.8 Neut # 8.7 H Lymph # 1.3 [place] # 0.7 Eos # 0.5 Baso # 0.1 Sodium 135 Potassium 3.6 Chloride 98 Carbon Dioxide 28 Anion Gap 12 BUN 26 H Creatinine 0.9 Est GFR ( Amer) > 60 Est GFR (Non-Af Amer) > 60 Random Glucose 98 Calcium 8.1 L Phosphorus 3.8 Magnesium 2.1 Total Bilirubin 1.0 AST 19 ALT 35 Alkaline Phosphatase 65 Total Protein 6.0 L Albumin 3.6 Globulin 2.4 Albumin/Globulin Ratio 1.5 Assessment & Plan (1) Pulmonary embolism Status: Acute Comment: continue anticoagulation. No right-sided strain on echocardiogram. Pulmonary hypertension secondary to COPD and possible sleep apnea (2) COPD exacerbation Status: Acute Comment: continue nebulizer treatment. Patient feels much better with promethazine and codeine (3) Pleural effusion Status: Acute Comment: repeat CAT scan showed improving pleural effusion (4) Chest pain Status: Acute
--- NOTE | 2017-05-08 21:06 | CP.PCM.PN ---
Subjective - Date & Time of Evaluation Date of Evaluation: 05/08/17 Time of Evaluation: 07:35 - Subjective Subjective: Medicine Note ( PGY-1)-----> Dr. Cheng's service Patient was seen and examined at bedside in the ED. Patient states that he is doing well and his symptoms have improved significantly. Patient denies chest pain, cough SOB, palpitations, dizziness, nausea and vomiting. Patient is tolerating diet and able to ambulate with very minimal assistance. Objective - Vital Signs/Intake and Output Vital Signs (last 24 hours): Temp Pulse Resp BP Pulse Ox 97.5 F L 75 20 126/68 94 L 05/08/17 15:50 05/08/17 15:50 05/08/17 15:50 05/08/17 15:50 05/08/17 15:50 - Medications Medications: Current Medications Albuterol (Ventolin Hfa 90 Mcg/Actuation (8 G)) 2 puff IH RQ6 PRN PRN Reason: SOB Last Admin: 05/07/17 12:45 Dose: 2 puff Albuterol/Ipratropium (Duoneb 3 Mg/0.5 Mg (3 Ml) Ud) 3 ml INH RQ4 PRN PRN Reason: Shortness of Breath Last Admin: 05/08/17 13:16 Dose: 3 ml Apixaban (Eliquis) 10 mg PO BID [facility] Stop: 05/11/17 23:55 Last Admin: 05/08/17 17:54 Dose: 10 mg Azithromycin (Zithromax) 250 mg PO DAILY [facility] Last Admin: 05/08/17 09:41 Dose: 250 mg Codeine Sulfate (Codeine) 30 mg PO Q6H [facility] Last Admin: 05/08/17 17:53 Dose: 30 mg Doxazosin Mesylate (Cardura) 2 mg PO DAILY [facility] Last Admin: 05/08/17 09:41 Dose: 2 mg Guaifenesin/Codeine Phosphate (Guaifenesin/Codeine) 10 ml PO Q6H PRN PRN Reason: Cough Hydrochlorothiazide (Microzide) 12.5 mg PO DAILY [facility] Last Admin: 05/08/17 09:41 Dose: 12.5 mg Ibuprofen (Motrin Tab) 600 mg PO Q6H PRN PRN Reason: Pain, moderate (4-7) Last Admin: 05/07/17 12:21 Dose: 600 mg Metoprolol Succinate (Toprol Xl) 12.5 mg PO DAILY [facility] Last Admin: 05/08/17 09:42 Dose: 12.5 mg Pantoprazole Sodium (Protonix Ec Tab) 20 mg PO DAILY [facility] Last Admin: 05/08/17 09:42 Dose: 20 mg Pneumococcal Polyvalent Vaccine (Pneumovax 23 Vaccine) 0.5 ml IM .ONCE ONE Stop: 05/09/17 10:01 Rosuvastatin Calcium (Crestor) 20 mg PO HS [facility] Last Admin: 05/07/17 23:01 Dose: 20 mg Saccharomyces Boulardii (Florastor) 250 mg PO BID [facility] Last Admin: 05/08/17 17:54 Dose: 250 mg Sertraline HCl (Zoloft) 100 mg PO DAILY [facility] Last Admin: 05/08/17 09:42 Dose: 100 mg - Labs Labs: 05/08/17 08:02 05/08/17 08:02 PT 10.6 SECONDS (9.7-12.2) 05/06/17 17:17 INR 1.0 05/06/17 17:17 APTT 21 SECONDS (21-34) 05/06/17 17:17 - Constitutional Appears: Well, No Acute Distress - Head Exam Head Exam: ATRAUMATIC - Eye Exam Eye Exam: EOMI - ENT Exam ENT Exam: Mucous Membranes Moist - Respiratory Exam Respiratory Exam: Clear to Ausculation Bilateral, NORMAL BREATHING PATTERN - Cardiovascular Exam Cardiovascular Exam: REGULAR RHYTHM, +S1, +S2 - GI/Abdominal Exam GI & Abdominal Exam: Soft, Normal Bowel Sounds Additional comments: Bruising to the left side of the abdomen, s/p fall - Extremities Exam Extremities Exam: absent: Calf Tenderness, Pedal Edema - Neurological Exam Neurological Exam: Alert, Awake, Oriented x3 - Psychiatric Exam Psychiatric exam: Normal Affect - Skin Skin Exam: Normal Color Assessment and Plan (1) Pulmonary embolism Assessment & Plan: IR Consult, ---> Help appreciated * As per evaluation: Patient has non-occlusive PE in the right lower lobar and segmental pulmonary artery. There is no RV strain by CT criteria. Recommend anticoagulation. There is no role for systemic TPA or catheter directed therapy in this case. [employer] Operator, Dr. Glasgow consulted----> help appreciated * management as per recommendation Imaging CT Chest (05/06): stable right sided pulmonary emboli with interval development of significant right heart strain. Decreased left-sided pleural effusion with adjacent compressive atelectasis. F/i echocardiogam Medications: * Eliquis 10mg PO daily BID ( stop date of 05/11/17) and then start eliquis 5mg PO daily Status: Acute (2) Syncope Assessment & Plan: Director Group Sales, Dr. Ron consulted-----> Help appreciated AAOX3 Possibly secondary to PE Imaging Head CT (05/06/17): no acute intracranial hemorrhage, or suspicious mass effect. Echo: EF (60-65%), LV sytolic function is normal. Mild aortic regurgitation. Moderate pulmonary hypertension. Right ventricle is normal in size, right ventricle systolic function is normal. No mitral regurgitation is noted Status: Acute (3) Right shoulder pain Assessment & Plan: S/p right rotator cuff repair (04/16/17) Imaging: Shoulder xray: no evidence of acute fracture or dislocation Medication: * Motrin 600mg PO Q6H pr Status: Acute (4) Pneumonia Assessment & Plan: Resolving, prior discharge diagnosis Chest CT: Decreased left-sided pleural effusion with adjacent compressive atelectasis. Chest X-ray (05/06/17): No active disease. Mild infiltrates Medications: * Azithromycin 250mg po daily * Guaifenesin/Codeine 10ml PO Q6H PRN * Codeine 30mg PO Q6H PRN Status: Acute (5) History of asthma Assessment & Plan: Continue home medications: * Ventolin 2 puff [place] RQ6 PRN * Duonebs 3ml INK RQ4 PRN Status: Acute (6) History of hyperlipidemia Assessment & Plan: Continue home medication: * Crestor 20mg PO HS Status: Acute (7) History of hypertension Assessment & Plan: Continue home medications: * HCTZ 12.5mg PO daily * Metoprolol Succinate 12.5mg po daily Status: Acute (8) History of urinary retention Assessment & Plan: Continue home medication: * Doxazosin 2mg po daily Status: Acute (9) History of anxiety Assessment & Plan: Continue home medication: * Sertraline 100mg PO daily Status: Acute (10) Prophylactic measure Assessment & Plan: GI: Protonix 20mg PO daily DVT: SCDs, Eliquis 10mg PO BID Florastor 250mg PO BID Status: Acute
--- NOTE | 2017-05-08 22:58 | CP.PCM.CON ---
History of Present Illness - History of Present Illness History of Present Illness: Patient seen and evaluated Syncope and PE Will check ECHO Past Patient History - Past Social History Smoking Status: Former Smoker - CARDIAC Hx Hypertension: Yes - PULMONARY Hx Chronic Obstructive Pulmonary Disease (COPD): Yes - NEUROLOGICAL Hx Neurological Disorder: No - HEENT Hx HEENT Problems: No - RENAL Hx Kidney Stones: Yes - ENDOCRINE/METABOLIC Hx Endocrine Disorders: No - HEMATOLOGICAL/ONCOLOGICAL Hx Blood Transfusions: No - INTEGUMENTARY Hx Dermatological Problems: No - MUSCULOSKELETAL/RHEUMATOLOGICAL Hx Musculoskeletal Disorders: Yes Hx Falls: Yes - GASTROINTESTINAL Hx Gastrointestinal Disorders: No - GENITOURINARY/GYNECOLOGICAL Hx Genitourinary Disorders: No - PSYCHIATRIC Hx Anxiety: Yes Hx Substance Use: No - SURGICAL HISTORY Hx Orthopedic Surgery: Yes (B/L SHOULDER, LEFT KNEE) Other/Comment: LEFT EAR, LEFT ARM MUSCLE, LITHROTRIPSY - ANESTHESIA Hx Anesthesia: Yes Hx Anesthesia Reactions: No Hx Malignant Hyperthermia: No Meds Allergies/Adverse Reactions: Allergies Allergy/AdvReac Type Severity Reaction Status Date / Time clindamycin Allergy Verified 05/06/17 16:12 - Medications Medications: Current Medications Albuterol (Ventolin Hfa 90 Mcg/Actuation (8 G)) 2 puff IH RQ6 PRN PRN Reason: SOB Last Admin: 05/07/17 12:45 Dose: 2 puff Albuterol/Ipratropium (Duoneb 3 Mg/0.5 Mg (3 Ml) Ud) 3 ml INH RQ4 PRN PRN Reason: Shortness of Breath Last Admin: 05/08/17 13:16 Dose: 3 ml Apixaban (Eliquis) 10 mg PO BID [facility] Stop: 05/11/17 23:55 Last Admin: 05/08/17 17:54 Dose: 10 mg Azithromycin (Zithromax) 250 mg PO DAILY [facility] Last Admin: 05/08/17 09:41 Dose: 250 mg Codeine Sulfate (Codeine) 30 mg PO Q6H [facility] Last Admin: 05/08/17 17:53 Dose: 30 mg Doxazosin Mesylate (Cardura) 2 mg PO DAILY [facility] Last Admin: 05/08/17 09:41 Dose: 2 mg Guaifenesin/Codeine Phosphate (Guaifenesin/Codeine) 10 ml PO Q6H PRN PRN Reason: Cough Hydrochlorothiazide (Microzide) 12.5 mg PO DAILY [facility] Last Admin: 05/08/17 09:41 Dose: 12.5 mg Ibuprofen (Motrin Tab) 600 mg PO Q6H PRN PRN Reason: Pain, moderate (4-7) Last Admin: 05/07/17 12:21 Dose: 600 mg Metoprolol Succinate (Toprol Xl) 12.5 mg PO DAILY [facility] Last Admin: 05/08/17 09:42 Dose: 12.5 mg Pantoprazole Sodium (Protonix Ec Tab) 20 mg PO DAILY [facility] Last Admin: 05/08/17 09:42 Dose: 20 mg Pneumococcal Polyvalent Vaccine (Pneumovax 23 Vaccine) 0.5 ml IM .ONCE ONE Stop: 05/09/17 10:01 Rosuvastatin Calcium (Crestor) 20 mg PO [facility] Last Admin: 05/08/17 22:19 Dose: 20 mg Saccharomyces Boulardii (Florastor) 250 mg PO BID [facility] Last Admin: 05/08/17 17:54 Dose: 250 mg Sertraline HCl (Zoloft) 100 mg PO DAILY [facility] Last Admin: 05/08/17 09:42 Dose: 100 mg Results - Vital Signs Recent Vital Signs: Last Vital Signs Temp 97.5 F L 05/08/17 15:50 Pulse 71 05/08/17 17:30 Resp 20 05/08/17 15:50 BP 126/68 05/08/17 15:50 Pulse Ox 94 L 05/08/17 15:50 - Labs Result Diagrams: 05/08/17 08:02 05/08/17 08:02 Labs: Laboratory Results - last 24 hr 05/08/17 05/08/17 05/08/17 08:02 08:02 12:04 WBC 11.2 H RBC 4.81 Hgb 13.1 Hct 40.0 MCV 83.1 MCH 27.2 MCHC 32.7 L RDW 19.0 H Plt Count 261 MPV 7.7 Neut % (Auto) 77.6 H Lymph % (Auto) 11.2 L [place] % (Auto) 6.2 Eos % (Auto) 4.2 H Baso % (Auto) 0.8 Neut # 8.7 H Lymph # 1.3 [place] # 0.7 Eos # 0.5 Baso # 0.1 Sodium 135 Potassium 3.6 Chloride 98 Carbon Dioxide 28 Anion Gap 12 BUN 26 H Creatinine 0.9 Est GFR ( Amer) > 60 Est GFR (Non-Af Amer) > 60 POC Glucose (mg/dL) 91 Random Glucose 98 Calcium 8.1 L Phosphorus 3.8 Magnesium 2.1 Total Bilirubin 1.0 AST 19 ALT 35 Alkaline Phosphatase 65 Total Protein 6.0 L Albumin 3.6 Globulin 2.4 Albumin/Globulin Ratio 1.5 05/08/17 05/08/17 16:15 21:22 WBC RBC Hgb Hct MCV MCH MCHC RDW Plt Count MPV Neut % (Auto) Lymph % (Auto) [place] % (Auto) Eos % (Auto) Baso % (Auto) Neut # Lymph # [place] # Eos # Baso # Sodium Potassium Chloride Carbon Dioxide Anion Gap BUN Creatinine Est GFR ( Amer) Est GFR (Non-Af Amer) POC Glucose (mg/dL) 173 H 110 Random Glucose Calcium Phosphorus Magnesium Total Bilirubin AST ALT Alkaline Phosphatase Total Protein Albumin Globulin Albumin/Globulin Ratio
[2017-05-09] MEDS: Albuterol-Ipratrop 3 mg / 0.5 (3 ml) UD INH PRN ×2 (07:38→13:18)
[2017-05-09 08:39] LABS: BASO % 0.2 % (0.0-2.0); EOS # 0.5 K/uL (0.0-0.7); HEMATOCRIT 37.3 % (35.0-51.0); LYMPH # 1.2 K/uL (1.0-4.3); LYMPH % 11.9 % (20.0-40.0); MEAN CELL VOLUME 83.6 fL (80.0-94.0); MEAN CORPUSCULAR HEMOGLOBIN 28.1 pg (27.0-31.0); MEAN CORPUSCULAR HGB CONC 33.6 g/dL (33.0-37.0); MEAN PLATELET VOLUME 7.7 fL (7.2-11.7); MONO # 0.7 K/uL (0.0-0.8); MONO % 7.2 % (0.0-10.0); NRBC % 0.1 % (0.0-2.0); RED CELL DISTRIBUTION WIDTH 18.6 % (11.5-14.5); WHITE BLOOD COUNT 10.1 K/uL (4.8-10.8)
[2017-05-09 08:54] LABS: ALB/GLOB RATIO 1.5 (1.0-2.1); ALKALINE PHOSPHATASE 76 U/L (38-126); ALT/SGPT 42 U/L (21-72); AST/SGOT 23 U/L (17-59); BILIRUBIN,TOTAL 0.9 mg/dL (0.2-1.3); BLOOD UREA NITROGEN 31 mg/dL (9-20); CALCIUM 8.1 mg/dl (8.6-10.4); CARBON DIOXIDE 27 mmol/L (22-30); CHLORIDE 101 mmol/L (98-107); GFR AFRICAN-AMERICAN > 60; GLUCOSE,RANDOM 87 mg/dL (75-110); MAGNESIUM 2.1 mg/dL (1.6-2.3); PHOSPHOROUS 3.7 mg/dL (2.5-4.5); POTASSIUM 3.6 mmol/L (3.6-5.2); SODIUM 138 mmol/L (132-148); TOTAL PROTEIN 5.5 g/dL (6.3-8.3)
[2017-05-09] MEDS: Metoprolol Succinate 12.5 mg XL PO SCH (09:59)
[2017-05-09] MEDS: Saccharomyces Boulardi 250 mg Cap PO SCH ×2 (10:00→17:26)
[2017-05-09] MEDS ORDERED: Pneumococcal 23-Valent Vaccine IM ONE (10:00)
[2017-05-09] MEDS: Pantoprazole 20 mg EC Tab PO SCH (10:00)
--- NOTE | 2017-05-09 13:13 | CP.PCM.PN ---
Subjective - Date & Time of Evaluation Date of Evaluation: 05/09/17 Time of Evaluation: 10:25 - Subjective Subjective: patient seen and examined. Lying comfortably in no acute distress Breathing much better Left chest pain Denies any cough Denies dizziness Seen by cardiology Objective - Vital Signs/Intake and Output Vital Signs (last 24 hours): Temp Pulse Resp BP Pulse Ox 97.4 F L 70 20 168/71 H 98 05/09/17 07:50 05/09/17 08:10 05/09/17 07:50 05/09/17 07:50 05/09/17 07:50 - Medications Medications: Current Medications Albuterol (Ventolin Hfa 90 Mcg/Actuation (8 G)) 2 puff IH RQ6 PRN PRN Reason: SOB Last Admin: 05/07/17 12:45 Dose: 2 puff Albuterol/Ipratropium (Duoneb 3 Mg/0.5 Mg (3 Ml) Ud) 3 ml INH RQ4 PRN PRN Reason: Shortness of Breath Last Admin: 05/09/17 07:38 Dose: 3 ml Apixaban (Eliquis) 10 mg PO BID [facility] Stop: 05/11/17 23:55 Last Admin: 05/09/17 09:59 Dose: 10 mg Azithromycin (Zithromax) 250 mg PO DAILY [facility] Last Admin: 05/09/17 09:59 Dose: 250 mg Doxazosin Mesylate (Cardura) 2 mg PO DAILY [facility] Last Admin: 05/09/17 09:59 Dose: 2 mg Guaifenesin/Codeine Phosphate (Guaifenesin/Codeine) 10 ml PO Q6H PRN PRN Reason: Cough Hydrochlorothiazide (Microzide) 12.5 mg PO DAILY [facility] Last Admin: 05/09/17 09:59 Dose: 12.5 mg Ibuprofen (Motrin Tab) 600 mg PO Q6H PRN PRN Reason: Pain, moderate (4-7) Last Admin: 05/09/17 13:09 Dose: 600 mg Metoprolol Succinate (Toprol Xl) 12.5 mg PO DAILY [facility] Last Admin: 05/09/17 09:59 Dose: 12.5 mg Pantoprazole Sodium (Protonix Ec Tab) 20 mg PO DAILY [facility] Last Admin: 05/09/17 10:00 Dose: 20 mg Rosuvastatin Calcium (Crestor) 20 mg PO HS [facility] Last Admin: 05/08/17 22:19 Dose: 20 mg Saccharomyces Boulardii (Florastor) 250 mg PO BID [facility] Last Admin: 05/09/17 10:00 Dose: 250 mg Sertraline HCl (Zoloft) 100 mg PO DAILY [facility] Last Admin: 05/09/17 09:59 Dose: 100 mg - Labs Labs: 05/09/17 08:18 05/09/17 08:18 PT 10.6 SECONDS (9.7-12.2) 05/06/17 17:17 INR 1.0 05/06/17 17:17 APTT 21 SECONDS (21-34) 05/06/17 17:17 - Head Exam Head Exam: ATRAUMATIC, NORMOCEPHALIC - Eye Exam Eye Exam: Normal appearance - ENT Exam ENT Exam: Mucous Membranes Moist - Neck Exam Neck Exam: Normal Inspection - Respiratory Exam Respiratory Exam: Decreased Breath Sounds - Cardiovascular Exam Cardiovascular Exam: REGULAR RHYTHM - GI/Abdominal Exam GI & Abdominal Exam: Soft, Normal Bowel Sounds Assessment and Plan (1) Pulmonary embolism Assessment & Plan: Continue anticoagulation Status: Acute (2) COPD exacerbation Assessment & Plan: continue antitussive and nebulizer treatment Status: Acute
--- NOTE | 2017-05-09 17:53 | CP.PCM.PN ---
Subjective - Date & Time of Evaluation Date of Evaluation: 05/09/17 Time of Evaluation: 07:20 - Subjective Subjective: Medicine Note ( PGY-1)-----> Dr. Cheng's service Patient was seen and examined at bedside in the ED. Patient states that he is doing well and his symptoms have improved significantly. Patient denies chest pain, cough SOB, palpitations, dizziness, nausea and vomiting. Patient is tolerating diet and able to ambulate. Objective - Vital Signs/Intake and Output Vital Signs (last 24 hours): Temp Pulse Resp BP Pulse Ox 97.7 F 72 20 154/75 H 94 L 05/09/17 15:53 05/09/17 16:00 05/09/17 15:53 05/09/17 15:53 05/09/17 15:53 - Medications Medications: Current Medications Albuterol (Ventolin Hfa 90 Mcg/Actuation (8 G)) 2 puff IH RQ6 PRN PRN Reason: SOB Last Admin: 05/07/17 12:45 Dose: 2 puff Albuterol/Ipratropium (Duoneb 3 Mg/0.5 Mg (3 Ml) Ud) 3 ml INH RQ4 PRN PRN Reason: Shortness of Breath Last Admin: 05/09/17 13:18 Dose: 3 ml Apixaban (Eliquis) 10 mg PO BID [facility] Stop: 05/11/17 23:55 Last Admin: 05/09/17 17:27 Dose: 10 mg Azithromycin (Zithromax) 250 mg PO DAILY [facility] Last Admin: 05/09/17 09:59 Dose: 250 mg Doxazosin Mesylate (Cardura) 2 mg PO DAILY [facility] Last Admin: 05/09/17 09:59 Dose: 2 mg Guaifenesin/Codeine Phosphate (Guaifenesin/Codeine) 10 ml PO Q6H PRN PRN Reason: Cough Hydrochlorothiazide (Microzide) 12.5 mg PO DAILY [facility] Last Admin: 05/09/17 09:59 Dose: 12.5 mg Ibuprofen (Motrin Tab) 600 mg PO Q6H PRN PRN Reason: Pain, moderate (4-7) Last Admin: 05/09/17 13:09 Dose: 600 mg Metoprolol Succinate (Toprol Xl) 12.5 mg PO DAILY [facility] Last Admin: 05/09/17 09:59 Dose: 12.5 mg Pantoprazole Sodium (Protonix Ec Tab) 20 mg PO DAILY [facility] Last Admin: 05/09/17 10:00 Dose: 20 mg Rosuvastatin Calcium (Crestor) 20 mg PO HS [facility] Last Admin: 05/08/17 22:19 Dose: 20 mg Saccharomyces Boulardii (Florastor) 250 mg PO BID [facility] Last Admin: 05/09/17 17:26 Dose: 250 mg Sertraline HCl (Zoloft) 100 mg PO DAILY [facility] Last Admin: 05/09/17 09:59 Dose: 100 mg - Labs Labs: 05/09/17 08:18 05/09/17 08:18 PT 10.6 SECONDS (9.7-12.2) 05/06/17 17:17 INR 1.0 05/06/17 17:17 APTT 21 SECONDS (21-34) 05/06/17 17:17 - Constitutional Appears: Well, No Acute Distress - Head Exam Head Exam: ATRAUMATIC - Eye Exam Eye Exam: EOMI - ENT Exam ENT Exam: Mucous Membranes Moist - Respiratory Exam Respiratory Exam: Clear to Ausculation Bilateral, NORMAL BREATHING PATTERN. absent: Accessory Muscle Use, Chest Wall Tenderness - Cardiovascular Exam Cardiovascular Exam: REGULAR RHYTHM, +S1, +S2 - GI/Abdominal Exam GI & Abdominal Exam: Soft, Normal Bowel Sounds Additional comments: Bruising to the left side of the abdomen, s/p fall - Extremities Exam Extremities Exam: Normal Inspection. absent: Calf Tenderness, Pedal Edema - Neurological Exam Neurological Exam: Alert, Awake, Oriented x3 - Psychiatric Exam Psychiatric exam: Anxious, Normal Affect, Normal Mood - Skin Skin Exam: Normal Color Assessment and Plan (1) Pulmonary embolism Assessment & Plan: R Consult, ---> Help appreciated * As per evaluation: Patient has non-occlusive PE in the right lower lobar and segmental pulmonary artery. There is no RV strain by CT criteria. Recommend anticoagulation. There is no role for systemic TPA or catheter directed therapy in this case. Sod Farmer, Dr. Glasgow consulted----> help appreciated * management as per recommendation Imaging CT Chest (05/06): stable right sided pulmonary emboli with interval development of significant right heart strain. Decreased left-sided pleural effusion with adjacent compressive atelectasis. 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 Ron consulted-----> Help appreciated AAOX3 Possibly secondary to PE Imaging Head CT (05/06/17): no acute intracranial hemorrhage, or suspicious mass effect. Echo: EF (60-65%), LV sytolic function is normal. Mild aortic regurgitation. Moderate pulmonary hypertension. Right ventricle is normal in size, right ventricle systolic function is normal. No mitral regurgitation is noted Status: Acute (3) Right shoulder pain Assessment & Plan: S/p right rotator cuff repair (04/16/17) Imaging: Shoulder xray: no evidence of acute fracture or dislocation Medication: * Motrin 600mg PO Q6H prn Status: Acute (4) Pneumonia Assessment & Plan: Resolving, prior discharge diagnosis Chest CT: Decreased left-sided pleural effusion with adjacent compressive atelectasis. Chest X-ray (05/06/17): No active disease. Mild infiltrates Medications: * Azithromycin 250mg po daily * Guaifenesin/Codeine 10ml PO Q6H PRN * Codeine 30mg PO Q6H PRN Status: Acute (5) History of asthma Assessment & Plan: Continue home medications: * Ventolin 2 puff [place] RQ6 PRN * Duonebs 3ml INK RQ4 PRN Status: Acute (6) History of hyperlipidemia Assessment & Plan: Continue home medication: * Crestor 20mg PO HS Status: Acute (7) History of hypertension Assessment & Plan: Continue home medications: * HCTZ 12.5mg PO daily * Metoprolol Succinate 12.5mg po daily Status: Acute (8) History of urinary retention Assessment & Plan: Continue home medication: * Doxazosin 2mg po daily Status: Acute (9) History of anxiety Assessment & Plan: Continue home medication: * Sertraline 100mg PO daily Status: Acute (10) Prophylactic measure Assessment & Plan: GI: Protonix 20mg PO daily DVT: SCDs, Eliquis 10mg PO BID Florastor 250mg PO BID All plans and management discussed with Dr. Cheng Status: Acute
[2017-05-10] MEDS: Albuterol-Ipratrop 3 mg / 0.5 (3 ml) UD INH PRN (07:29)
[2017-05-10 08:00] LABS: BASO % 0.3 % (0.0-2.0); EOS # 0.7 K/uL (0.0-0.7); HEMATOCRIT 37.8 % (35.0-51.0); LYMPH # 1.3 K/uL (1.0-4.3); MEAN CORPUSCULAR HEMOGLOBIN 27.7 pg (27.0-31.0); MEAN PLATELET VOLUME 7.8 fL (7.2-11.7); MONO # 0.7 K/uL (0.0-0.8); MONO % 6.7 % (0.0-10.0); NRBC % 0.1 % (0.0-2.0); RED CELL DISTRIBUTION WIDTH 18.4 % (11.5-14.5); WHITE BLOOD COUNT 11.1 K/uL (4.8-10.8)
[2017-05-10 08:12] LABS: ALB/GLOB RATIO 1.5 (1.0-2.1); ALKALINE PHOSPHATASE 68 U/L (38-126); ALT/SGPT 36 U/L (21-72); AST/SGOT 20 U/L (17-59); BLOOD UREA NITROGEN 20 mg/dL (9-20); CALCIUM 7.9 mg/dl (8.6-10.4); CARBON DIOXIDE 30 mmol/L (22-30); CHLORIDE 104 mmol/L (98-107); GFR AFRICAN-AMERICAN > 60; GLUCOSE,RANDOM 92 mg/dL (75-110); MAGNESIUM 1.9 mg/dL (1.6-2.3); PHOSPHOROUS 3.3 mg/dL (2.5-4.5); POTASSIUM 3.4 mmol/L (3.6-5.2); SODIUM 140 mmol/L (132-148); TOTAL PROTEIN 5.5 g/dL (6.3-8.3)
[2017-05-10] MEDS ORDERED: Potassium Chloride 20 mEq ER Tab PO ONE (08:48)
[2017-05-10] MEDS: Saccharomyces Boulardi 250 mg Cap PO SCH ×2 (10:33→17:08)
[2017-05-10] MEDS: Metoprolol Succinate 12.5 mg XL PO SCH (10:33)
[2017-05-10] MEDS: Pantoprazole 20 mg EC Tab PO SCH (10:33)
--- NOTE | 2017-05-10 12:12 | CP.PCM.PN ---
Subjective - Date & Time of Evaluation Date of Evaluation: 05/10/17 Time of Evaluation: 09:40 - Subjective Subjective: Patient seen and examined Lying comfortably in no acute distress Complaining of slight chest discomfort on the left side on deep inspiration Afebrile Breathing much improved Denies dizziness Objective - Vital Signs/Intake and Output Vital Signs (last 24 hours): Temp Pulse Resp BP Pulse Ox 98.7 F 88 20 167/92 H 97 05/10/17 08:39 05/10/17 10:30 05/10/17 08:39 05/10/17 10:30 05/10/17 08:39 - Medications Medications: Current Medications Albuterol (Ventolin Hfa 90 Mcg/Actuation (8 G)) 2 puff IH RQ6 PRN PRN Reason: SOB Last Admin: 05/07/17 12:45 Dose: 2 puff Albuterol/Ipratropium (Duoneb 3 Mg/0.5 Mg (3 Ml) Ud) 3 ml INH RQ4 PRN PRN Reason: Shortness of Breath Last Admin: 05/10/17 07:29 Dose: 3 ml Apixaban (Eliquis) 10 mg PO BID [facility] Stop: 05/11/17 23:55 Last Admin: 05/10/17 10:33 Dose: 10 mg Azithromycin (Zithromax) 250 mg PO DAILY [facility] Last Admin: 05/10/17 10:33 Dose: 250 mg Doxazosin Mesylate (Cardura) 2 mg PO DAILY [facility] Last Admin: 05/10/17 10:33 Dose: 2 mg Guaifenesin/Codeine Phosphate (Guaifenesin/Codeine) 10 ml PO Q6H PRN PRN Reason: Cough Hydrochlorothiazide (Microzide) 12.5 mg PO DAILY [facility] Last Admin: 05/10/17 10:33 Dose: 12.5 mg Ibuprofen (Motrin Tab) 600 mg PO Q6H PRN PRN Reason: Pain, moderate (4-7) Last Admin: 05/10/17 00:09 Dose: 600 mg Metoprolol Succinate (Toprol Xl) 12.5 mg PO DAILY [facility] Last Admin: 05/10/17 10:33 Dose: 12.5 mg Pantoprazole Sodium (Protonix Ec Tab) 20 mg PO DAILY [facility] Last Admin: 05/10/17 10:33 Dose: 20 mg Rosuvastatin Calcium (Crestor) 20 mg PO HS [facility]PL[facility] Last Admin: 05/09/17 21:42 Dose: 20 mg Saccharomyces Boulardii (Florastor) 250 mg PO BID [facility] Last Admin: 05/10/17 10:33 Dose: 250 mg Sertraline HCl (Zoloft) 100 mg PO DAILY [facility] Last Admin: 05/10/17 10:33 Dose: 100 mg - Labs Labs: 05/10/17 07:42 05/10/17 07:42 PT 10.6 SECONDS (9.7-12.2) 05/06/17 17:17 INR 1.0 05/06/17 17:17 APTT 21 SECONDS (21-34) 05/06/17 17:17 - Head Exam Head Exam: ATRAUMATIC, NORMOCEPHALIC - Eye Exam Eye Exam: Normal appearance - ENT Exam ENT Exam: Mucous Membranes Moist - Neck Exam Neck Exam: Normal Inspection - Respiratory Exam Respiratory Exam: Decreased Breath Sounds - Cardiovascular Exam Cardiovascular Exam: REGULAR RHYTHM - GI/Abdominal Exam GI & Abdominal Exam: Soft, Normal Bowel Sounds - Extremities Exam Extremities Exam: Full ROM, Normal Inspection - Neurological Exam Neurological Exam: Alert, Oriented x3 Assessment and Plan (1) Pulmonary embolism Assessment & Plan: continue anticoagulation Continue nebulizer treatment Followup chest x-ray Status: Acute (2) COPD exacerbation Status: Acute
[2017-05-10 15:44] VITALS: BP 169/76; PULSE 92; TEMP 98.1; O2SAT 96
--- NOTE | 2017-05-10 15:57 | CP.PCM.DIS ---
Provider - Provider Date of Admission: 05/06/17 21:40 Attending physician: Guanako Cheng Jr, MD Time Spent in preparation of Discharge (in minutes): 35 Diagnosis - Discharge Diagnosis (1) Pulmonary embolism Status: Acute (2) Syncope Status: Acute (3) Right shoulder pain Status: Acute (4) Pneumonia Status: Acute (5) History of asthma Status: Acute (6) History of hyperlipidemia Status: Acute (7) History of hypertension Status: Acute (8) History of urinary retention Status: Acute (9) History of anxiety Status: Acute (10) Prophylactic measure Status: Acute Hospital Course - Lab Results Lab Results: Most Recent Lab Values WBC 11.1 K/uL (4.8-10.8) H 05/10/17 07:42 RBC 4.50 Mil/uL (4.40-5.90) 05/10/17 07:42 Hgb 12.5 g/dL (12.0-18.0) 05/10/17 07:42 Hct 37.8 % (35.0-51.0) 05/10/17 07:42 MCV 84.0 fL (80.0-94.0) 05/10/17 07:42 MCH 27.7 pg (27.0-31.0) 05/10/17 07:42 MCHC 33.0 g/dL (33.0-37.0) 05/10/17 07:42 RDW 18.4 % (11.5-14.5) H 05/10/17 07:42 Plt Count 249 K/uL (130-400) 05/10/17 07:42 MPV 7.8 fL (7.2-11.7) 05/10/17 07:42 Neut % (Auto) 75.0 % (50.0-75.0) 05/10/17 07:42 Lymph % (Auto) 12.0 % (20.0-40.0) L 05/10/17 07:42 Wake % (Auto) 6.7 % (0.0-10.0) 05/10/17 07:42 Eos % (Auto) 6.0 % (0.0-4.0) H 05/10/17 07:42 Baso % (Auto) 0.3 % (0.0-2.0) 05/10/17 07:42 Neut # 8.3 K/uL (1.8-7.0) H 05/10/17 07:42 Lymph # 1.3 K/uL (1.0-4.3) 05/10/17 07:42 Wake # 0.7 K/uL (0.0-0.8) 05/10/17 07:42 Eos # 0.7 K/uL (0.0-0.7) 05/10/17 07:42 Baso # 0.0 K/uL (0.0-0.2) 05/10/17 07:42 PT 10.6 SECONDS (9.7-12.2) 05/06/17 17:17 INR 1.0 05/06/17 17:17 APTT 21 SECONDS (21-34) 05/06/17 17:17 Sodium 140 mmol/L (132-148) 05/10/17 07:42 Potassium 3.4 mmol/L (3.6-5.2) L 05/10/17 07:42 Chloride 104 mmol/L (98-107) 05/10/17 07:42 Carbon Dioxide 30 mmol/L (22-30) 05/10/17 07:42 Anion Gap 9 (10-20) L 05/10/17 07:42 BUN 20 mg/dL (9-20) 05/10/17 07:42 Creatinine 1.0 mg/dL (0.8-1.5) 05/10/17 07:42 Est GFR ( Amer) > 60 05/10/17 07:42 Est GFR (Non-Af Amer) > 60 05/10/17 07:42 POC Glucose (mg/dL) 110 mg/dL (65-110) 05/08/17 21:22 Random Glucose 92 mg/dL (75-110) 05/10/17 07:42 Hemoglobin A1c 6.4 % (4.2-6.5) 05/06/17 17:17 Calcium 7.9 mg/dl (8.6-10.4) L 05/10/17 07:42 Phosphorus 3.3 mg/dL (2.5-4.5) 05/10/17 07:42 Magnesium 1.9 mg/dL (1.6-2.3) 05/10/17 07:42 Total Bilirubin 1.0 mg/dL (0.2-1.3) 05/10/17 07:42 AST 20 U/L (17-59) 05/10/17 07:42 ALT 36 U/L (21-72) 05/10/17 07:42 Alkaline Phosphatase 68 U/L (38-126) 05/10/17 07:42 Troponin I < 0.0120 ng/mL (0.00-0.120) 05/06/17 17:17 Total Protein 5.5 g/dL (6.3-8.3) L 05/10/17 07:42 Albumin 3.3 g/dL (3.5-5.0) L 05/10/17 07:42 Globulin 2.2 gm/dL (2.2-3.9) 05/10/17 07:42 Albumin/Globulin Ratio 1.5 (1.0-2.1) 05/10/17 07:42 Triglycerides 315 mg/dL (0-149) H D 05/06/17 17:17 Cholesterol 136 mg/dL (0-199) 05/06/17 17:17 LDL Cholesterol Direct 50 mg/dL (0-129) 05/06/17 17:17 HDL Cholesterol 53 mg/dL (30-70) 05/06/17 17:17 Blood Type B POSITIVE 05/06/17 17:17 Antibody Screen Negative 05/06/17 17:17 - Hospital Course Hospital Course: HPI (As per admission): Patient is a 67 y/o M with PMHx of anxiety, asthma, COPD, HTN, HLD, kidney stones, and recent PE who was discharged from the hospital on 05/06 after being admitted for left lower lobe pneumonia, pleural effusion, and right side PE. Patient was feeling good this morning when he woke up. Patient took all of his medications this morning (except for the Eliquis which his was getting from the pharmacy) and ate breakfast around 10:30. About one hour later patient was walking to his kitchen to get some fruit when he started to feel lightheaded and like the room was going black. He could tell he was going to faint and tried to sit down, but thinks he fell. Patient awoke on the floor on his left side. No one was home at the time of the fall. Patient called his who called an ambulance for him. Patient was no longer lightheaded but had pain in his left shoulder from the fall. In the ED patient says he did not feel short of breath, but that his oxygen saturation decreased some and he needed to be put on nasal cannula. Patient denies headache, change in vision, shortness of breath, chest pain, abdominal pain, nausea, vomiting, constipation, or diarrhea. Patient still has pain on his left side and shoulder from the fall. Hospital Course: Patient was admitted with diagnosis of syncope and PE. Intervention radiologist , was consulted, who recommended anticoagulation as there is no need for systemic TPA or catheter directed therapy in this case. [facility], Dr. Glasgow and Dr. Ron was consulted, who recommended continuation of anticoagulation. Patient was managed with chemical agents for his acute PE as well as his past medical history. Patient remained clinically stable of the course of admission and had no acute events. Patient was discharged after deemed cleared by his medical team with appropriate discharge instructions. Pertinent imaging: CT Chest (05/06): stable right sided pulmonary emboli with interval development of significant right heart strain. Decreased left-sided pleural effusion with adjacent compressive atelectasis. Echo: EF (60-65%), LV sytolic function is normal. Mild aortic regurgitation. Moderate pulmonary hypertension. Right ventricle is normal in size, right ventricle systolic function is normal. No mitral regurgitation is noted Shoulder xray: no evidence of acute fracture or dislocation Chest CT: Decreased left-sided pleural effusion with adjacent compressive atelectasis. Chest X-ray (05/06/17): No active disease. Mild infiltrates This is a brief summary of event. For a complete course, please refer to the medical records. Discharge Exam - Head Exam Head Exam: ATRAUMATIC, NORMOCEPHALIC - Eye Exam Eye Exam: EOMI - ENT Exam ENT Exam: Mucous Membranes Moist - Respiratory Exam Respiratory Exam: Clear to PA & Lateral, NORMAL BREATHING PATTERN - Cardiovascular Exam Cardiovascular Exam: REGULAR RHYTHM, +S1, +S2 - GI/Abdominal Exam GI & Abdominal Exam: Normal Bowel Sounds Additional comments: Bruising to the left side of the abdomen, s/p fall - Extremities Exam Extremities exam: normal inspection - Neurological Exam Neurological exam: Alert, Oriented x3 - Psychiatric Exam Psychiatric exam: Normal Affect, Normal Mood - Skin Skin Exam: Normal Color Discharge Plan - Follow Up Plan Condition: GOOD Disposition: HOME/ ROUTINE Instructions: Apixaban (By mouth), Pulmonary Embolism (DC), Heart Healthy Diet (DC), Syncope (DC), COPD (Chronic Obstructive Pulmonary Disease) (DC), Pleural Effusion (DC), Contusion in Adults (DC) Additional Instructions: Please discharge patient home as per Dr. Cheng Please continue the following medication as prescribed: 1. Eliquis 10mg PO BID ( Till 05/11/17) 2. Start Eliquis 5mg PO BID ON 05/12/17) for 3 months Please resume all your other home medications as prescribed by Dr. Cheng Please follow up with Dr. Cheng outpatient within one week Please follow up with bookkeeping teacher, Dr. Glasgow within one week Please return to the hospital or ED if symptoms resume or worsens. Referrals: Slava Glasgow MD [Staff Provider] - Guanako Cheng Jr., MD [Medical Doctor] - Dmitry Ron MD [Staff Provider] -
== END 2017-05-10 17:18 | disposition home or self-care (01) | DRG 175 ==
LOC: C.ER 16:03 → C.9E 21:40 → C.6T 05-07 13:11
PROVIDERS: ADMIT Internal Medicine; ATTEND Internal Medicine
DX: I26.99 Other pulmonary embolism without acute cor pulmonale (principal); J18.9 Pneumonia, unspecified organism; J90 Pleural effusion, not elsewhere classified; I27.20 Pulmonary hypertension, unspecified; J44.0 Chronic obstructive pulmonary disease with (acute) lower respiratory infection; J98.11 Atelectasis; R55 Syncope and collapse; W19.XXXA Unspecified fall, initial encounter; I10 Essential (primary) hypertension; G89.29 Other chronic pain; E78.5 Hyperlipidemia, unspecified; E78.00 Pure hypercholesterolemia, unspecified; I35.1 Nonrheumatic aortic (valve) insufficiency; S40.012A Contusion of left shoulder, initial encounter; Y92.000 Kitchen of unspecified non-institutional (private) residence as the place of occurrence of the external cause; Z87.442 Personal history of urinary calculi; Z87.891 Personal history of nicotine dependence; Z96.659 Presence of unspecified artificial knee joint

== ENCOUNTER 2017-07-17 11:47 | Inpatient (IN) | payer MEDICARE ==
--- NOTE | 2017-07-17 12:50 | RAD ---
PROCEDURE: CHEST RADIOGRAPH, 1 VIEW HISTORY: CHEST PAIN COMPARISON: 05/06/2017 FINDINGS: LUNGS: Clear. PLEURA: No pneumothorax or pleural fluid seen. CARDIOVASCULAR: Normal. OSSEOUS STRUCTURES: No significant abnormalities. VISUALIZED UPPER ABDOMEN: Normal. OTHER FINDINGS: None. IMPRESSION: No active disease.
[2017-07-17 12:51] LABS: BASO # 0.1 K/uL (0.0-0.2); BASO % 0.6 % (0.0-2.0); EOS # 0.9 K/uL (0.0-0.7); EOS % 7.5 % (0.0-4.0); LYMPH # 1.5 K/uL (1.0-4.3); LYMPH % 12.3 % (20.0-40.0); MEAN CELL VOLUME 85.7 fL (80.0-94.0); MEAN CORPUSCULAR HEMOGLOBIN 28.9 pg (27.0-31.0); MEAN CORPUSCULAR HGB CONC 33.7 g/dL (33.0-37.0); MEAN PLATELET VOLUME 7.5 fL (7.2-11.7); MONO # 0.8 K/uL (0.0-0.8); MONO % 7.1 % (0.0-10.0); NEUT # 8.5 K/uL (1.8-7.0); NEUT % 72.5 % (50.0-75.0); RBC 4.85 Mil/uL (4.40-5.90); RED CELL DISTRIBUTION WIDTH 14.2 % (11.5-14.5); WHITE BLOOD COUNT 11.8 K/uL (4.8-10.8)
[2017-07-17 13:02] LABS: PROTHROMBIN TIME 11.2 SECONDS (9.7-12.2)
[2017-07-17 13:03] LABS: ALB/GLOB RATIO 1.3 (1.0-2.1); ALBUMIN 4.1 g/dL (3.5-5.0); ALT/SGPT 34 U/L (21-72); AST/SGOT 27 U/L (17-59); BLOOD UREA NITROGEN 19 mg/dL (9-20); CALCIUM 9.4 mg/dl (8.6-10.4); GFR AFRICAN-AMERICAN > 60; GFR NON-AFRICAN AMERICAN > 60
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
[2017-07-17 13:16] LABS: CK-MB 3.09 ng/mL (0.0-3.38)
[2017-07-17] MEDS ORDERED: Albuterol-Ipratrop 3 mg / 0.5 (3 ml) UD INH STA (13:46)
[2017-07-17] MEDS ORDERED: MethylPREDNISolone 40 mg Vial ONE (14:23)
[2017-07-17] MEDS ORDERED: Albuterol-Ipratrop 3 mg / 0.5 (3 ml) UD ONE (14:24)
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
[2017-07-17] MEDS ORDERED: MethylPREDNISolone 40 mg Vial IV SCH (18:00)
[2017-07-17] MEDS: Pantoprazole 40 mg EC Tab PO SCH (18:25)
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
[2017-07-17 19:03] LABS: CK-MB 2.62 ng/mL (0.0-3.38)
[2017-07-17] MEDS ORDERED: Acetaminophen-Codeine 300/30 mg Tab PO ONE (19:28)
[2017-07-17] MEDS: Acetaminophen-Codeine 300/30 mg Tab PO PRN (19:28)
[2017-07-17 19:42] LABS: ARTERIAL BLOOD GAS HCO3 24.5 mmol/L (21-28); ARTERIAL BLOOD GAS HEMOGLOBIN 13.1 g/dL (11.7-17.4); ARTERIAL BLOOD GAS O2 SAT 96.5 % (95-98); ARTERIAL BLOOD GAS PCO2 34 mm/Hg (35-45); ARTERIAL BLOOD GAS PH 7.44 (7.35-7.45); ARTERIAL BLOOD GAS PO2 82 mm/Hg (80-100); ARTERIAL BLOOD GAS TCO2 24.1 mmol/L (22-28)
[2017-07-17] MEDS: Tiotropium 18 mcg Cap For Inhalation INH SCH (19:48)
[2017-07-17] MEDS: Fluticasone-Salmeterol 250-50mcg Diskus INH SCH (20:47)
[2017-07-17] MEDS: Albuterol-Ipratrop 3 mg / 0.5 (3 ml) UD INH SCH (20:48)
[2017-07-18 00:47] LABS: CK-MB 1.97 ng/mL (0.0-3.38)
[2017-07-18] MEDS: Albuterol-Ipratrop 3 mg / 0.5 (3 ml) UD INH SCH ×4 (01:27→21:37)
[2017-07-18] MEDS: MethylPREDNISolone 40 mg Vial IV SCH ×3 (02:11→18:13)
[2017-07-18] MEDS: Acetaminophen-Codeine 300/30 mg Tab PO PRN ×4 (02:16→22:03)
[2017-07-18 06:40] LABS: BASO % 0.1 % (0.0-2.0); EOS % 0.1 % (0.0-4.0); HEMOGLOBIN 13.3 g/dL (12.0-18.0); LYMPH # 0.8 K/uL (1.0-4.3); LYMPH % 5.6 % (20.0-40.0); MEAN CELL VOLUME 85.6 fL (80.0-94.0); MEAN CORPUSCULAR HEMOGLOBIN 28.6 pg (27.0-31.0); MEAN CORPUSCULAR HGB CONC 33.4 g/dL (33.0-37.0); MEAN PLATELET VOLUME 7.6 fL (7.2-11.7); MONO # 0.3 K/uL (0.0-0.8); NEUT # 12.6 K/uL (1.8-7.0); NEUT % 92.2 % (50.0-75.0); PLATELET COUNT 318 K/uL (130-400); RBC 4.65 Mil/uL (4.40-5.90); RED CELL DISTRIBUTION WIDTH 14.1 % (11.5-14.5); WHITE BLOOD COUNT 13.6 K/uL (4.8-10.8)
[2017-07-18] MEDS: Tiotropium 18 mcg Cap For Inhalation INH SCH (07:10)
[2017-07-18] MEDS: Fluticasone-Salmeterol 250-50mcg Diskus INH SCH ×2 (07:20→21:38)
[2017-07-18 08:11] LABS: ALB/GLOB RATIO 1.4 (1.0-2.1); ALBUMIN 3.9 g/dL (3.5-5.0); ALT/SGPT 26 U/L (21-72); AST/SGOT 22 U/L (17-59); BLOOD UREA NITROGEN 24 mg/dL (9-20); CALCIUM 8.9 mg/dl (8.6-10.4); GFR AFRICAN-AMERICAN > 60; GFR NON-AFRICAN AMERICAN > 60; MAGNESIUM 2.1 mg/dL (1.6-2.3)
[2017-07-18 08:33] LABS: LARGE PLATELETS PRESENT; LYMPHOCYTE 5 % (20-40); MONOCYTE 4 % (0-10); MYELOCYTE 1 % (0-0); NEUTROPHIL 90 % (50-75); PLATELET ESTIMATE NORMAL (NORMAL); TOTAL CELLS COUNTED 100
[2017-07-18] MEDS: Pantoprazole 40 mg EC Tab PO SCH (09:07)
--- NOTE | 2017-07-18 10:10 | CP.PCM.PN ---
Subjective - Date & Time of Evaluation Date of Evaluation: 07/18/17 Time of Evaluation: 10:07 - Subjective Subjective: Medicine progress note for Dr. Cheng's service Patient was seen and examined at bedside in no acute distress. Patient laying comfortably in bed, using nebulizer. Patient reports still feeling sob and has left-sided rib pain with coughing. Patient denies chest pain, nausea, vomiting, fevers, headaches, leg pain/swelling. Objective - Vital Signs/Intake and Output Vital Signs (last 24 hours): Temp Pulse Resp BP Pulse Ox 97.8 F 105 H 20 157/73 H 96 07/18/17 07:40 07/18/17 09:05 07/18/17 07:40 07/18/17 09:05 07/18/17 07:40 - Medications Medications: Current Medications Acetaminophen/Codeine Phosphate (Tylenol/Codeine 300 Mg/30 Mg) 2 ea PO Q6 PRN PRN Reason: Pain, severe (8-10) Last Admin: 07/18/17 08:29 Dose: 2 ea Albuterol/Ipratropium (Duoneb 3 Mg/0.5 Mg (3 Ml) Ud) 3 ml INH RQ6 [facility] Last Admin: 07/18/17 01:27 Dose: 3 ml Amlodipine Besylate (Norvasc) 5 mg PO DAILY [facility] Last Admin: 07/18/17 09:07 Dose: 5 mg Apixaban (Eliquis) 5 mg PO BID [facility] Last Admin: 07/18/17 09:07 Dose: 5 mg Doxazosin Mesylate (Cardura) 2 mg PO DAILY [facility] Last Admin: 07/18/17 09:07 Dose: 2 mg Hydrochlorothiazide (Hydrodiuril) 25 mg PO DAILY [facility] Last Admin: 07/18/17 09:07 Dose: 25 mg Losartan Potassium (Cozaar) 100 mg PO DAILY [facility] Last Admin: 07/18/17 09:07 Dose: 100 mg Methylprednisolone (Solu-Medrol) 40 mg IV Q8H [facility] Last Admin: 07/18/17 02:11 Dose: 40 mg Metoprolol Tartrate (Lopressor) 50 mg PO DAILY [facility] Last Admin: 07/18/17 09:07 Dose: 50 mg Pantoprazole Sodium (Protonix Ec Tab) 40 mg PO DAILY [facility] Last Admin: 07/18/17 09:07 Dose: 40 mg Rosuvastatin Calcium (Crestor) 10 mg PO HS [facility] Last Admin: 07/17/17 22:47 Dose: 10 mg Fluticasone/Salmeterol (Advair Diskus 250/50) 1 puff INH RQ12 [facility] Last Admin: 07/17/17 20:47 Dose: 1 puff Sertraline HCl (Zoloft) 100 mg PO DAILY [facility] Last Admin: 07/18/17 09:07 Dose: 100 mg Tiotropium [place] (Spiriva) 18 mcg INH RQ24 [facility] Last Admin: 07/17/17 19:48 Dose: 18 mcg - Labs Labs: 07/18/17 06:23 07/18/17 06:23 PT 11.2 SECONDS (9.7-12.2) 07/17/17 12:39 INR 1.0 07/17/17 12:39 APTT 30 SECONDS (21-34) 07/17/17 12:39 - Constitutional Appears: No Acute Distress - Head Exam Head Exam: NORMAL INSPECTION - Eye Exam Eye Exam: EOMI, Normal appearance - ENT Exam ENT Exam: Mucous Membranes Moist - Respiratory Exam Respiratory Exam: Wheezes, NORMAL BREATHING PATTERN. absent: Rales, Respiratory Distress - Cardiovascular Exam Cardiovascular Exam: REGULAR RHYTHM, +S1, +S2 - GI/Abdominal Exam GI & Abdominal Exam: Soft, Normal Bowel Sounds. absent: Distended, Firm, Tenderness Additional comments: Patient has steam garg on abdomen- erythematous, tender, healing well. - Extremities Exam Extremities Exam: Normal Inspection - Neurological Exam Neurological Exam: Alert, Awake, Oriented x3 - Psychiatric Exam Psychiatric exam: Normal Affect, Normal Mood - Skin Skin Exam: Dry, Intact, Normal Color, Warm Assessment and Plan - Assessment and Plan (Free Text) Plan: COPD Exacerbation Duoneb Q6 [facility] Solumedrol 40 mg IV Q12H Spiriva 18 mcg INH daily Resumed home Advair 250/50 Q12H Pulmonology consult, Dr. Glasgow, help appreciated Chest Pain Based on the location that the patient indicated, this is most likely rib pain, but will get another 2 sets of cardiac enzymes given patient's risk factors. EKG in ED NSR Troponins x3 negative Tylenol #3, 2 tabs Q6H prn pain History of Pulmonary Embolus Right sided per Chest CT on 05/03/17 Resumed home Eliquis 5 mg PO BID Please note that the patient will need sufficient education as he was not taking the Eliquis as prescribed and indicated. He was taking 2 tablets in the morning. History of Hypertension Resumed home Losartan 100 mg PO daily Resumed home Lopressor 50 mg PO daily Resumed home Norvasc 5 mg PO daily Resumed home HCTZ 25 mg PO daily History of Hyperlipidemia Simvastatin not on formulary. Crestor 10 mg PO HS History of Anxiety Resumed home Zoloft 100 mg PO daily Prophylactic Measure Cardiac Diet Eliquis 5 mg PO BID Protonix 40 mg PO daily Resumed home Cardura 2 mg PO daily Discussed with Dr. Cheng
--- NOTE | 2017-07-18 18:00 | CP.PCM.PN ---
Subjective - Date & Time of Evaluation Date of Evaluation: 07/18/17 Time of Evaluation: 11:45 - Subjective Subjective: Patient seen and examined at bedside. Patient reports continuing shortness of breath, wheezing, and productive cough, but states that his symptoms improve with acetominophen/Codeine. He also reports weakness, constipation, and myalgias. He denies fevers/ chills. Patient is speaking in full sentences and is in no acute distress. 1. COPD exacerbation - Duonebs Q6h -Solumedrol 40 mg Q12 -Spiriva 18 mcg INH daily - ABG within normal limits, O2 sat 94.9 - Advair 250/50 q12h - Codeine/Acetominophen 300/30 2 ea PO Q6 PRN 2. Chronic Pulmonary Embolism - R sided per chest CT (05/03/17) - resume Eliquis 5 mg PO BID - Consider chest CT with contrast - ABG within normal limits, O2 sat 94.9 Objective - Vital Signs/Intake and Output Vital Signs (last 24 hours): Temp Pulse Resp BP Pulse Ox 97.8 F 64 20 131/66 94 L 07/18/17 15:19 07/18/17 15:30 07/18/17 15:19 07/18/17 15:19 07/18/17 15:19 Intake and Output: 07/18/17 07/18/17 06:59 18:59 Intake Total 400 Balance 400 - Medications Medications: Current Medications Acetaminophen/Codeine Phosphate (Tylenol/Codeine 300 Mg/30 Mg) 2 ea PO Q6 PRN PRN Reason: Pain, severe (8-10) Last Admin: 07/18/17 15:31 Dose: 2 ea Albuterol/Ipratropium (Duoneb 3 Mg/0.5 Mg (3 Ml) Ud) 3 ml INH RQ6 [facility] Last Admin: 07/18/17 13:34 Dose: 3 ml Amlodipine Besylate (Norvasc) 5 mg PO DAILY [facility] Last Admin: 07/18/17 09:07 Dose: 5 mg Apixaban (Eliquis) 5 mg PO BID [facility] Last Admin: 07/18/17 09:07 Dose: 5 mg Doxazosin Mesylate (Cardura) 2 mg PO DAILY [facility] Last Admin: 07/18/17 09:07 Dose: 2 mg Hydrochlorothiazide (Hydrodiuril) 25 mg PO DAILY [facility] Last Admin: 07/18/17 09:07 Dose: 25 mg Losartan Potassium (Cozaar) 100 mg PO DAILY [facility] Last Admin: 07/18/17 09:07 Dose: 100 mg Methylprednisolone (Solu-Medrol) 40 mg IV Q8H [facility] Last Admin: 07/18/17 10:47 Dose: 40 mg Metoprolol Tartrate (Lopressor) 50 mg PO DAILY [facility] Last Admin: 07/18/17 09:07 Dose: 50 mg Pantoprazole Sodium (Protonix Ec Tab) 40 mg PO DAILY [facility] Last Admin: 07/18/17 09:07 Dose: 40 mg Rosuvastatin Calcium (Crestor) 10 mg PO HS [facility] Last Admin: 07/17/17 22:47 Dose: 10 mg Fluticasone/Salmeterol (Advair Diskus 250/50) 1 puff INH RQ12 [facility] Last Admin: 07/18/17 07:20 Dose: 1 puff Sertraline HCl (Zoloft) 100 mg PO DAILY [facility] Last Admin: 07/18/17 09:07 Dose: 100 mg Tiotropium [place] (Spiriva) 18 mcg INH RQ24 [facility] Last Admin: 07/18/17 07:10 Dose: 18 mcg - Labs Labs: 07/18/17 06:23 07/18/17 06:23 PT 11.2 SECONDS (9.7-12.2) 07/17/17 12:39 INR 1.0 07/17/17 12:39 APTT 30 SECONDS (21-34) 07/17/17 12:39 Assessment and Plan (1) COPD exacerbation Status: Acute (2) Costochondral joint sprain Status: Acute (3) Pulmonary embolism Status: Acute
[2017-07-19] MEDS: Albuterol-Ipratrop 3 mg / 0.5 (3 ml) UD INH SCH ×4 (01:51→19:34)
[2017-07-19] MEDS: MethylPREDNISolone 40 mg Vial IV SCH ×3 (02:27→17:44)
[2017-07-19] MEDS: Tiotropium 18 mcg Cap For Inhalation INH SCH (07:15)
[2017-07-19] MEDS: Fluticasone-Salmeterol 250-50mcg Diskus INH SCH ×2 (07:15→19:34)
[2017-07-19 07:55] LABS: BASO % 0.1 % (0.0-2.0); LYMPH # 0.7 K/uL (1.0-4.3); LYMPH % 3.8 % (20.0-40.0); MEAN CELL VOLUME 85.7 fL (80.0-94.0); MEAN CORPUSCULAR HEMOGLOBIN 29.1 pg (27.0-31.0); MEAN PLATELET VOLUME 7.7 fL (7.2-11.7); MONO # 0.8 K/uL (0.0-0.8); MONO % 4.3 % (0.0-10.0); NEUT % 91.8 % (50.0-75.0); PLATELET COUNT 351 K/uL (130-400); RBC 4.46 Mil/uL (4.40-5.90); RED CELL DISTRIBUTION WIDTH 14.2 % (11.5-14.5); WHITE BLOOD COUNT 18.5 K/uL (4.8-10.8)
[2017-07-19 08:41] LABS: ALB/GLOB RATIO 1.3 (1.0-2.1); ALBUMIN 3.8 g/dL (3.5-5.0); ALT/SGPT 26 U/L (21-72); AST/SGOT 25 U/L (17-59); BLOOD UREA NITROGEN 23 mg/dL (9-20); GFR AFRICAN-AMERICAN > 60; GFR NON-AFRICAN AMERICAN > 60; MAGNESIUM 2.1 mg/dL (1.6-2.3)
[2017-07-19 09:53] LABS: LYMPHOCYTE 6 % (20-40); MONOCYTE 3 % (0-10); NEUTROPHIL 90 % (50-75); PLATELET ESTIMATE NORMAL (NORMAL); REACTIVE LYMPHOCYTES 1 % (0-0); TOTAL CELLS COUNTED 100
[2017-07-19] MEDS: Pantoprazole 40 mg EC Tab PO SCH (10:18)
[2017-07-19] MEDS: Acetaminophen-Codeine 300/30 mg Tab PO PRN ×2 (10:23→17:44)
--- NOTE | 2017-07-19 11:12 | CP.PCM.PN ---
Subjective - Date & Time of Evaluation Date of Evaluation: 07/19/17 Time of Evaluation: 11:11 - Subjective Subjective: Medicine progress note for Dr. Cheng's service Patient was seen and examined at bedside in no acute distress. Patient laying comfortably in bed watching TV. Patient complains of left-sided rib pain with coughing, and states that "something is moving inside". Patient denies chest pain, nausea, vomiting, fevers, headaches, leg pain/swelling. Objective - Vital Signs/Intake and Output Vital Signs (last 24 hours): Temp Pulse Resp BP Pulse Ox 97.3 F L 89 18 135/69 95 07/19/17 07:20 07/19/17 10:16 07/19/17 07:20 07/19/17 10:16 07/19/17 07:20 Intake and Output: 07/19/17 07/19/17 06:59 18:59 Intake Total 100 Balance 100 - Medications Medications: Current Medications Acetaminophen/Codeine Phosphate (Tylenol/Codeine 300 Mg/30 Mg) 2 ea PO Q6 PRN PRN Reason: Pain, severe (8-10) Last Admin: 07/19/17 10:23 Dose: 2 ea Albuterol/Ipratropium (Duoneb 3 Mg/0.5 Mg (3 Ml) Ud) 3 ml INH RQ6 [facility] Last Admin: 07/19/17 07:15 Dose: 3 ml Amlodipine Besylate (Norvasc) 5 mg PO DAILY [facility] Last Admin: 07/19/17 10:18 Dose: 5 mg Apixaban (Eliquis) 5 mg PO BID [facility] Last Admin: 07/19/17 10:17 Dose: 5 mg Docusate Sodium (Colace) 100 mg PO BID [facility] Doxazosin Mesylate (Cardura) 2 mg PO DAILY [facility] Last Admin: 07/19/17 10:17 Dose: 2 mg Hydrochlorothiazide (Hydrodiuril) 25 mg PO DAILY [facility] Last Admin: 07/19/17 10:17 Dose: 25 mg Losartan Potassium (Cozaar) 100 mg PO DAILY [facility] Last Admin: 07/19/17 10:17 Dose: 100 mg Methylprednisolone (Solu-Medrol) 40 mg IV Q8H [facility] Last Admin: 07/19/17 10:18 Dose: 40 mg Metoprolol Tartrate (Lopressor) 50 mg PO DAILY [facility] Last Admin: 07/19/17 10:18 Dose: 50 mg Pantoprazole Sodium (Protonix Ec Tab) 40 mg PO DAILY [facility] Last Admin: 07/19/17 10:18 Dose: 40 mg Rosuvastatin Calcium (Crestor) 10 mg PO HS [facility] Last Admin: 07/18/17 22:03 Dose: 10 mg Fluticasone/Salmeterol (Advair Diskus 250/50) 1 puff INH RQ12 [facility] Last Admin: 07/19/17 07:15 Dose: 1 puff Sertraline HCl (Zoloft) 100 mg PO DAILY [facility] Last Admin: 07/19/17 10:17 Dose: 100 mg Tiotropium [place] (Spiriva) 18 mcg INH RQ24 [facility] Last Admin: 07/19/17 07:15 Dose: 18 mcg - Labs Labs: 07/19/17 07:44 07/19/17 07:44 PT 11.2 SECONDS (9.7-12.2) 07/17/17 12:39 INR 1.0 07/17/17 12:39 APTT 30 SECONDS (21-34) 07/17/17 12:39 - Additional Findings Additional findings: - Constitutional Appears: No Acute Distress - Head Exam Head Exam: NORMAL INSPECTION - Eye Exam Eye Exam: EOMI, Normal appearance - ENT Exam ENT Exam: Mucous Membranes Moist - Respiratory Exam Respiratory Exam: Wheezes, NORMAL BREATHING PATTERN. absent: Rales, Respiratory Distress - Cardiovascular Exam Cardiovascular Exam: REGULAR RHYTHM, +S1, +S2 - GI/Abdominal Exam GI & Abdominal Exam: Soft, Normal Bowel Sounds. absent: Distended, Firm, Tenderness Additional comments: Patient has steam garg on abdomen- erythematous, tender, healing well. - Extremities Exam Extremities Exam: Normal Inspection - Neurological Exam Neurological Exam: Alert, Awake, Oriented x3 - Psychiatric Exam Psychiatric exam: Normal Affect, Normal Mood - Skin Skin Exam: Dry, Intact, Normal Color, Warm Assessment and Plan Assessment and Plan - Assessment and Plan (Free Text) Plan: COPD Exacerbation Duoneb Q6 [facility] Solumedrol 40 mg IV Q12H Spiriva 18 mcg INH daily Resumed home Advair 250/50 Q12H Pulmonology consult, Dr. Glasgow, help appreciated Chest Pain Based on the location that the patient indicated, this is most likely rib pain, but will get another 2 sets of cardiac enzymes given patient's risk factors. EKG in ED NSR Troponins x3 negative Tylenol #3, 2 tabs Q6H prn pain History of Pulmonary Embolus Right sided per Chest CT on 05/03/17 Resumed home Eliquis 5 mg PO BID Please note that the patient will need sufficient education as he was not taking the Eliquis as prescribed and indicated. He was taking 2 tablets in the morning. History of Hypertension Resumed home Losartan 100 mg PO daily Resumed home Lopressor 50 mg PO daily Resumed home Norvasc 5 mg PO daily Resumed home HCTZ 25 mg PO daily History of Hyperlipidemia Simvastatin not on formulary. Crestor 10 mg PO HS History of Anxiety Resumed home Zoloft 100 mg PO daily Prophylactic Measure Cardiac Diet Eliquis 5 mg PO BID Protonix 40 mg PO daily Resumed home Cardura 2 mg PO daily Discussed with Dr. Cheng
--- NOTE | 2017-07-19 13:14 | CP.PCM.PN ---
Subjective - Date & Time of Evaluation Date of Evaluation: 07/19/17 Time of Evaluation: 10:10 - Subjective Subjective: Patient seen and examined Still complaining of pain left rib cage Breathing better Afebrile Objective - Vital Signs/Intake and Output Vital Signs (last 24 hours): Temp Pulse Resp BP Pulse Ox 97.3 F L 89 18 135/69 95 07/19/17 07:20 07/19/17 10:16 07/19/17 07:20 07/19/17 10:16 07/19/17 07:20 Intake and Output: 07/19/17 07/19/17 06:59 18:59 Intake Total 100 Balance 100 - Medications Medications: Current Medications Acetaminophen/Codeine Phosphate (Tylenol/Codeine 300 Mg/30 Mg) 2 ea PO Q6 PRN PRN Reason: Pain, severe (8-10) Last Admin: 07/19/17 10:23 Dose: 2 ea Albuterol/Ipratropium (Duoneb 3 Mg/0.5 Mg (3 Ml) Ud) 3 ml INH RQ6 [facility] Last Admin: 07/19/17 07:15 Dose: 3 ml Amlodipine Besylate (Norvasc) 5 mg PO DAILY [facility] Last Admin: 07/19/17 10:18 Dose: 5 mg Apixaban (Eliquis) 5 mg PO BID [facility] Last Admin: 07/19/17 10:17 Dose: 5 mg Docusate Sodium (Colace) 100 mg PO BID [facility] Last Admin: 07/19/17 11:37 Dose: 100 mg Doxazosin Mesylate (Cardura) 2 mg PO DAILY [facility] Last Admin: 07/19/17 10:17 Dose: 2 mg Hydrochlorothiazide (Hydrodiuril) 25 mg PO DAILY [facility] Last Admin: 07/19/17 10:17 Dose: 25 mg Losartan Potassium (Cozaar) 100 mg PO DAILY [facility] Last Admin: 07/19/17 10:17 Dose: 100 mg Methylprednisolone (Solu-Medrol) 40 mg IV Q8H [facility] Last Admin: 07/19/17 10:18 Dose: 40 mg Metoprolol Tartrate (Lopressor) 50 mg PO DAILY [facility] Last Admin: 07/19/17 10:18 Dose: 50 mg Pantoprazole Sodium (Protonix Ec Tab) 40 mg PO DAILY [facility] Last Admin: 07/19/17 10:18 Dose: 40 mg Rosuvastatin Calcium (Crestor) 10 mg PO HS [facility] Last Admin: 07/18/17 22:03 Dose: 10 mg Fluticasone/Salmeterol (Advair Diskus 250/50) 1 puff INH RQ12 [facility] Last Admin: 07/19/17 07:15 Dose: 1 puff Sertraline HCl (Zoloft) 100 mg PO DAILY [facility] Last Admin: 07/19/17 10:17 Dose: 100 mg Tiotropium [place] (Spiriva) 18 mcg INH RQ24 [facility] Last Admin: 07/19/17 07:15 Dose: 18 mcg - Labs Labs: 07/19/17 07:44 07/19/17 07:44 PT 11.2 SECONDS (9.7-12.2) 07/17/17 12:39 INR 1.0 07/17/17 12:39 APTT 30 SECONDS (21-34) 07/17/17 12:39 - Head Exam Head Exam: ATRAUMATIC, NORMOCEPHALIC - ENT Exam ENT Exam: Mucous Membranes Moist - Neck Exam Neck Exam: Normal Inspection - Respiratory Exam Respiratory Exam: Decreased Breath Sounds - Cardiovascular Exam Cardiovascular Exam: REGULAR RHYTHM - GI/Abdominal Exam GI & Abdominal Exam: Soft, Normal Bowel Sounds - Extremities Exam Extremities Exam: Full ROM, Normal Inspection Assessment and Plan (1) COPD exacerbation Assessment & Plan: continue nebulizer treatment and steroids Status: Acute (2) Costochondral joint sprain Assessment & Plan: x-ray rib cage Continue pain medication Status: Acute (3) Pulmonary embolism Status: Acute
--- NOTE | 2017-07-19 14:34 | RAD ---
PROCEDURE: Radiographs of the Chest and Left Ribs. HISTORY: r/o fracture COMPARISON: 07/17/2017. TECHNIQUE: Frontal radiograph of the chest and multiple oblique radiographs of the left ribs were obtained. FINDINGS: LEFT RIBS: Nondisplaced fractures left 7th and 8th ribs posterolaterally. LUNGS: Clear. PLEURA: No pneumothorax or pleural fluid. CARDIOVASCULAR: Normal sized heart. No pulmonary vascular congestion. OTHER FINDINGS: None. IMPRESSION: Nondisplaced fractures left 7th and 8th ribs
[2017-07-20] MEDS: Acetaminophen-Codeine 300/30 mg Tab PO PRN ×3 (00:32→17:42)
[2017-07-20] MEDS: Albuterol-Ipratrop 3 mg / 0.5 (3 ml) UD INH SCH ×4 (01:37→19:54)
[2017-07-20] MEDS: MethylPREDNISolone 40 mg Vial IV SCH ×3 (02:45→17:42)
[2017-07-20] MEDS: Fluticasone-Salmeterol 250-50mcg Diskus INH SCH ×2 (07:30→19:53)
[2017-07-20] MEDS: Tiotropium 18 mcg Cap For Inhalation INH SCH (07:31)
[2017-07-20 07:34] LABS: BASO % 0.2 % (0.0-2.0); HEMOGLOBIN 13.6 g/dL (12.0-18.0); LYMPH # 0.6 K/uL (1.0-4.3); MEAN CELL VOLUME 85.1 fL (80.0-94.0); MEAN CORPUSCULAR HGB CONC 34.1 g/dL (33.0-37.0); MEAN PLATELET VOLUME 7.6 fL (7.2-11.7); MONO # 0.7 K/uL (0.0-0.8); MONO % 4.9 % (0.0-10.0); NEUT # 13.8 K/uL (1.8-7.0); NEUT % 90.9 % (50.0-75.0); PLATELET COUNT 340 K/uL (130-400); RBC 4.69 Mil/uL (4.40-5.90); RED CELL DISTRIBUTION WIDTH 14.3 % (11.5-14.5); WHITE BLOOD COUNT 15.1 K/uL (4.8-10.8)
[2017-07-20 08:09] LABS: ALB/GLOB RATIO 1.6 (1.0-2.1); ALBUMIN 3.9 g/dL (3.5-5.0); ALT/SGPT 29 U/L (21-72); AST/SGOT 22 U/L (17-59); BLOOD UREA NITROGEN 27 mg/dL (9-20); CALCIUM 8.4 mg/dl (8.6-10.4); GFR AFRICAN-AMERICAN > 60; GFR NON-AFRICAN AMERICAN > 60; MAGNESIUM 2.3 mg/dL (1.6-2.3)
[2017-07-20] MEDS: Pantoprazole 40 mg EC Tab PO SCH (10:58)
[2017-07-20 11:11] LABS: BANDS 2 % (0-2); LYMPHOCYTE 5 % (20-40); MONOCYTE 3 % (0-10); NEUTROPHIL 90 % (50-75); PLATELET ESTIMATE NORMAL (NORMAL); TOTAL CELLS COUNTED 100
--- NOTE | 2017-07-20 12:25 | CARD ---
APPROVED REPORT EKG Measurement Heart [id number] <Conclusion> Normal sinus rhythm Normal ECG
--- NOTE | 2017-07-20 14:16 | CP.PCM.PN ---
Subjective - Date & Time of Evaluation Date of Evaluation: 07/20/17 Time of Evaluation: 14:12 - Subjective Subjective: PGY2 progress note for Dr. Cheng Pt seen and examined at bedside. No acute events overnight. Pt is still complaining of left sided rib pain. He is resting comfortably though. Patient continues to complain of cough with whitish sputum. Denies having any abd pain, N/V/D/C, F/C. 12 point ROS negative except for the above mentioned. Objective - Vital Signs/Intake and Output Vital Signs (last 24 hours): Temp Pulse Resp BP Pulse Ox 97.4 F L 58 L 20 166/79 H 96 07/20/17 07:30 07/20/17 12:00 07/20/17 10:56 07/20/17 10:56 07/20/17 10:56 Intake and Output: 07/20/17 07/20/17 06:59 18:59 Intake Total 450 Balance 450 - Medications Medications: Current Medications Acetaminophen/Codeine Phosphate (Tylenol/Codeine 300 Mg/30 Mg) 2 ea PO Q6 PRN PRN Reason: Pain, severe (8-10) Last Admin: 07/20/17 11:00 Dose: 2 ea Albuterol/Ipratropium (Duoneb 3 Mg/0.5 Mg (3 Ml) Ud) 3 ml INH RQ6 [facility] Last Admin: 07/20/17 13:33 Dose: 3 ml Amlodipine Besylate (Norvasc) 5 mg PO DAILY [facility] Last Admin: 07/20/17 10:57 Dose: 5 mg Apixaban (Eliquis) 5 mg PO BID [facility] Last Admin: 07/20/17 10:58 Dose: 5 mg Docusate Sodium (Colace) 100 mg PO BID [facility] Last Admin: 07/20/17 10:58 Dose: 100 mg Doxazosin Mesylate (Cardura) 2 mg PO DAILY [facility] Last Admin: 07/20/17 10:57 Dose: 2 mg Hydrochlorothiazide (Hydrodiuril) 25 mg PO DAILY [facility] Last Admin: 07/20/17 10:58 Dose: 25 mg Losartan Potassium (Cozaar) 100 mg PO DAILY [facility] Last Admin: 07/20/17 10:57 Dose: 100 mg Methylprednisolone (Solu-Medrol) 40 mg IV Q8H [facility] Last Admin: 07/20/17 10:58 Dose: 40 mg Metoprolol Tartrate (Lopressor) 50 mg PO DAILY [facility] Last Admin: 07/20/17 10:57 Dose: 50 mg Pantoprazole Sodium (Protonix Ec Tab) 40 mg PO DAILY [facility] Last Admin: 07/20/17 10:58 Dose: 40 mg Rosuvastatin Calcium (Crestor) 10 mg PO HS [facility] Last Admin: 07/19/17 22:11 Dose: 10 mg Fluticasone/Salmeterol (Advair Diskus 250/50) 1 puff INH RQ12 [facility] Last Admin: 07/20/17 07:30 Dose: 1 puff Sertraline HCl (Zoloft) 100 mg PO DAILY [facility] Last Admin: 07/20/17 10:58 Dose: 100 mg Tiotropium [place] (Spiriva) 18 mcg INH RQ24 [facility] Last Admin: 07/20/17 07:31 Dose: 18 mcg - Labs Labs: 07/20/17 07:22 07/20/17 07:22 PT 11.2 SECONDS (9.7-12.2) 07/17/17 12:39 INR 1.0 07/17/17 12:39 APTT 30 SECONDS (21-34) 07/17/17 12:39 - Constitutional Appears: Non-toxic, No Acute Distress - Head Exam Head Exam: ATRAUMATIC - ENT Exam ENT Exam: Mucous Membranes Moist - Respiratory Exam Respiratory Exam: Wheezes. absent: Accessory Muscle Use, Clear to Ausculation Bilateral, Respiratory Distress - Cardiovascular Exam Cardiovascular Exam: REGULAR RHYTHM, +S1, +S2 - GI/Abdominal Exam GI & Abdominal Exam: Soft, Normal Bowel Sounds. absent: Distended, Firm, Guarding, Rigid, Tenderness, Organomegaly - Extremities Exam Extremities Exam: absent: Pedal Edema, Tenderness - Neurological Exam Neurological Exam: Alert, Awake, Oriented x3 - Psychiatric Exam Psychiatric exam: Normal Affect, Normal Mood - Skin Skin Exam: Dry, Intact, Normal Color, Warm Assessment and Plan - Assessment and Plan (Free Text) Assessment: COPD Exacerbation Duoneb Q6 [facility] Solumedrol 40 mg IV Q12H Sp[facility] 18 mcg INH daily Resumed home Advair 250/50 Q12H Pulmonology consult, Dr. Glasgow, help appreciated Chest Pain Troponins x3 negative and EKG normal Echo from 04/26 showed normal LV EF, mild AR and mod pulm HTN Rib x rays done yesterday showed non-displaced fractures of ribs 7 and 8. Tylenol #3, 2 tabs Q6H prn pain Will consult pain management, Dr. Elias History of Pulmonary Embolus Right sided per Chest CT on 05/03/17 Resumed home Eliquis 5 mg PO BID Please note that the patient will need sufficient education as he was not taking the Eliquis as prescribed and indicated. He was taking 2 tablets in the morning. History of Hypertension Resumed home Losartan 100 mg PO daily Resumed home Lopressor 50 mg PO daily Resumed home Norvasc 5 mg PO daily Resumed home HCTZ 25 mg PO daily History of Hyperlipidemia Simvastatin not on formulary. Crestor 10 mg PO HS History of Anxiety Resumed home Zoloft 100 mg PO daily Prophylactic Measure Cardiac Diet Eliquis 5 mg PO BID Protonix 40 mg PO daily Resumed home Cardura 2 mg PO daily Discussed with Dr. Cheng
[2017-07-21] MEDS: Acetaminophen-Codeine 300/30 mg Tab PO PRN ×3 (01:07→20:14)
[2017-07-21] MEDS: Albuterol-Ipratrop 3 mg / 0.5 (3 ml) UD INH SCH ×4 (03:04→19:18)
[2017-07-21] MEDS: MethylPREDNISolone 40 mg Vial IV SCH ×2 (03:12→21:45)
[2017-07-21] MEDS: Fluticasone-Salmeterol 250-50mcg Diskus INH SCH ×2 (07:15→19:18)
[2017-07-21] MEDS: Tiotropium 18 mcg Cap For Inhalation INH SCH (07:15)
[2017-07-21 08:52] LABS: BASO % 0.1 % (0.0-2.0); LYMPH # 0.6 K/uL (1.0-4.3); LYMPH % 4.6 % (20.0-40.0); MEAN CELL VOLUME 86.3 fL (80.0-94.0); MEAN CORPUSCULAR HEMOGLOBIN 28.8 pg (27.0-31.0); MEAN CORPUSCULAR HGB CONC 33.4 g/dL (33.0-37.0); MEAN PLATELET VOLUME 7.9 fL (7.2-11.7); MONO # 1.1 K/uL (0.0-0.8); MONO % 7.6 % (0.0-10.0); NEUT # 12.1 K/uL (1.8-7.0); NEUT % 87.7 % (50.0-75.0); PLATELET COUNT 354 K/uL (130-400); RBC 4.85 Mil/uL (4.40-5.90); RED CELL DISTRIBUTION WIDTH 14.3 % (11.5-14.5); WHITE BLOOD COUNT 13.8 K/uL (4.8-10.8)
[2017-07-21 09:03] LABS: ALB/GLOB RATIO 1.4 (1.0-2.1); ALBUMIN 3.8 g/dL (3.5-5.0); ALT/SGPT 51 U/L (21-72); AST/SGOT 36 U/L (17-59); BLOOD UREA NITROGEN 33 mg/dL (9-20); CALCIUM 9.1 mg/dl (8.6-10.4); GFR AFRICAN-AMERICAN > 60; GFR NON-AFRICAN AMERICAN > 60; MAGNESIUM 2.4 mg/dL (1.6-2.3)
--- NOTE | 2017-07-21 10:13 | CP.PCM.PN ---
Subjective - Date & Time of Evaluation Date of Evaluation: 07/21/17 Time of Evaluation: 10:08 - Subjective Subjective: PGY2 progress note for Dr. Cheng Pt seen and examined at bedside. No acute events overnight. Pt is resting comfortably. However upon questioning he states that his left rib feels like ti is flailing and continues to complain of severe pain with movement, defecation, coughing on his left zhou eof chest. Currently denies SOB, abd pain , N/V/D/C, F/C. Overnight, pt requested abdominal binder to help with pain. He currently has it on and states that it improves the pain. 12 point ROS negative except for the above mentioned. Objective - Vital Signs/Intake and Output Vital Signs (last 24 hours): Temp Pulse Resp BP Pulse Ox 97.9 F 86 18 165/76 H 95 07/21/17 08:00 07/21/17 08:00 07/21/17 08:00 07/21/17 08:00 07/21/17 08:00 Intake and Output: 07/21/17 07/21/17 06:59 18:59 Intake Total 100 Balance 100 - Medications Medications: Current Medications Acetaminophen/Codeine Phosphate (Tylenol/Codeine 300 Mg/30 Mg) 2 ea PO Q6 PRN PRN Reason: Pain, severe (8-10) Last Admin: 07/21/17 01:07 Dose: 2 ea Albuterol/Ipratropium (Duoneb 3 Mg/0.5 Mg (3 Ml) Ud) 3 ml INH RQ6 [facility] Last Admin: 07/21/17 07:15 Dose: 3 ml Amlodipine Besylate (Norvasc) 5 mg PO DAILY [facility] Last Admin: 07/20/17 10:57 Dose: 5 mg Apixaban (Eliquis) 5 mg PO BID [facility] Last Admin: 07/20/17 17:42 Dose: 5 mg Docusate Sodium (Colace) 100 mg PO BID [facility] Last Admin: 07/20/17 17:42 Dose: 100 mg Doxazosin Mesylate (Cardura) 2 mg PO DAILY [facility] Last Admin: 07/20/17 10:57 Dose: 2 mg Hydrochlorothiazide (Hydrodiuril) 25 mg PO DAILY [facility] Last Admin: 07/20/17 10:58 Dose: 25 mg Losartan Potassium (Cozaar) 100 mg PO DAILY [facility] Last Admin: 07/20/17 10:57 Dose: 100 mg Methylprednisolone (Solu-Medrol) 40 mg IV Q8H [facility] Last Admin: 07/21/17 03:12 Dose: 40 mg Metoprolol Tartrate (Lopressor) 50 mg PO DAILY [facility] Last Admin: 07/20/17 10:57 Dose: 50 mg Pantoprazole Sodium (Protonix Ec Tab) 40 mg PO DAILY [facility] Last Admin: 07/20/17 10:58 Dose: 40 mg Rosuvastatin Calcium (Crestor) 10 mg PO HS [facility] Last Admin: 07/20/17 23:08 Dose: 10 mg Fluticasone/Salmeterol (Advair Diskus 250/50) 1 puff INH RQ12 [facility] Last Admin: 07/21/17 07:15 Dose: 1 puff Sertraline HCl (Zoloft) 100 mg PO DAILY [facility] Last Admin: 07/20/17 10:58 Dose: 100 mg Tiotropium [place] (Spiriva) 18 mcg INH RQ24 [facility] Last Admin: 07/21/17 07:15 Dose: 18 mcg - Labs Labs: 07/21/17 08:29 07/21/17 08:29 PT 11.2 SECONDS (9.7-12.2) 07/17/17 12:39 INR 1.0 07/17/17 12:39 APTT 30 SECONDS (21-34) 07/17/17 12:39 - Constitutional Appears: Non-toxic, No Acute Distress - Head Exam Head Exam: ATRAUMATIC - ENT Exam ENT Exam: Mucous Membranes Moist - Respiratory Exam Respiratory Exam: Rhonchi. absent: Accessory Muscle Use, Wheezes, Respiratory Distress - Cardiovascular Exam Cardiovascular Exam: REGULAR RHYTHM, +S1, +S2 - GI/Abdominal Exam GI & Abdominal Exam: Soft, Normal Bowel Sounds. absent: Distended, Firm, Guarding, Rigid, Tenderness, Organomegaly - Extremities Exam Extremities Exam: absent: Pedal Edema, Tenderness - Neurological Exam Neurological Exam: Alert, Awake, Oriented x3 - Psychiatric Exam Psychiatric exam: Normal Affect, Normal Mood - Skin Skin Exam: Dry, Intact, Normal Color, Warm Assessment and Plan - Assessment and Plan (Free Text) Assessment: COPD Exacerbation Duoneb Q6 [facility] Decreased Solumedrol 40 mg IV Q12H. Will continue to decrease steroids daily as pt has clinical improvement in respirations Spiriva 18 mcg INH daily Resumed home Advair 250/50 Q12H Pulmonology consult, Dr. Glasgow, help appreciated Chest Pain Troponins x3 negative and EKG normal Echo from 04/26 showed normal LV EF, mild AR and mod pulm HTN Rib x rays done yesterday showed non-displaced fractures of ribs 7 and 8. Tylenol #3, 2 tabs Q6H prn pain Will consult pain management, Dr. Elias. Reached out to Dr. Elias, waiting to hear back. Nurse asked to apply abdominal binder History of Pulmonary Embolus Right sided per Chest CT on 05/03/17 Resumed home Eliquis 5 mg PO BID Patient is educated on proper dosing for Eliquis. It is explained to him that his Eliquis 5 mg tab must be taken once in the morning and 5 mg tab once at night, and not 10 mg together in the morning. He understands. History of Hypertension Resumed home Losartan 100 mg PO daily Resumed home Lopressor 50 mg PO daily Resumed home Norvasc 5 mg PO daily Resumed home HCTZ 25 mg PO daily Resumed home Cardura 2 mg PO daily History of Hyperlipidemia Simvastatin not on formulary. Crestor 10 mg PO HS History of Anxiety Resumed home Zoloft 100 mg PO daily Prophylactic Measure Cardiac Diet Eliquis 5 mg PO BID Protonix 40 mg PO daily Patient will be given script for abdominal binder Discussed with Dr. Cheng
[2017-07-21 10:44] LABS: BANDS 1 % (0-2); LYMPHOCYTE 3 % (20-40); MONOCYTE 6 % (0-10); NEUTROPHIL 90 % (50-75); TOTAL CELLS COUNTED 100
[2017-07-21 10:45] LABS: ANISOCYTOSIS SLIGHT; GIANT PLATELETS PRESENT; HYPOCHROMIC SLIGHT; LARGE PLATELETS PRESENT; PLATELET ESTIMATE NORMAL (NORMAL); POLYCHROMIC SLIGHT
[2017-07-21 10:47] LABS: TOXIC GRANULATION PRESENT
[2017-07-21] MEDS: Pantoprazole 40 mg EC Tab PO SCH (10:53)
[2017-07-21] MEDS ORDERED: Acetaminophen-Codeine 300/30 mg Tab PO PRN (19:27)
[2017-07-22] MEDS: Albuterol-Ipratrop 3 mg / 0.5 (3 ml) UD INH SCH ×4 (01:15→19:59)
[2017-07-22] MEDS: Acetaminophen-Codeine 300/30 mg Tab PO PRN ×3 (02:13→16:25)
[2017-07-22 08:26] LABS: BASO % 0.1 % (0.0-2.0); HEMOGLOBIN 14.4 g/dL (12.0-18.0); LYMPH # 0.8 K/uL (1.0-4.3); LYMPH % 7.1 % (20.0-40.0); MEAN CELL VOLUME 86.4 fL (80.0-94.0); MEAN CORPUSCULAR HEMOGLOBIN 28.5 pg (27.0-31.0); MEAN PLATELET VOLUME 7.6 fL (7.2-11.7); MONO # 0.9 K/uL (0.0-0.8); MONO % 7.9 % (0.0-10.0); NEUT # 10.1 K/uL (1.8-7.0); NEUT % 84.9 % (50.0-75.0); PLATELET COUNT 336 K/uL (130-400); RBC 5.03 Mil/uL (4.40-5.90); RED CELL DISTRIBUTION WIDTH 14.3 % (11.5-14.5); WHITE BLOOD COUNT 11.9 K/uL (4.8-10.8)
[2017-07-22 08:45] LABS: ALB/GLOB RATIO 1.4 (1.0-2.1); ALBUMIN 3.9 g/dL (3.5-5.0); ALT/SGPT 54 U/L (21-72); AST/SGOT 32 U/L (17-59); BLOOD UREA NITROGEN 31 mg/dL (9-20); CALCIUM 9.1 mg/dl (8.6-10.4); GFR AFRICAN-AMERICAN > 60; GFR NON-AFRICAN AMERICAN > 60; MAGNESIUM 2.2 mg/dL (1.6-2.3)
[2017-07-22] MEDS: Pantoprazole 40 mg EC Tab PO SCH (09:05)
[2017-07-22] MEDS: MethylPREDNISolone 40 mg Vial IV SCH ×2 (09:06→23:01)
[2017-07-22] MEDS: Fluticasone-Salmeterol 250-50mcg Diskus INH SCH ×2 (09:33→19:59)
[2017-07-22] MEDS: Tiotropium 18 mcg Cap For Inhalation INH SCH (09:35)
[2017-07-22 10:00] LABS: LYMPHOCYTE 16 % (20-40); MONOCYTE 13 % (0-10); NEUTROPHIL 71 % (50-75); PLATELET ESTIMATE NORMAL (NORMAL); TOTAL CELLS COUNTED 100
--- NOTE | 2017-07-22 16:02 | CP.PCM.PN ---
Subjective - Date & Time of Evaluation Date of Evaluation: 07/22/17 Time of Evaluation: 09:00 - Subjective Subjective: Patient seen and examined at bedside. Patient reports feeling short of breath at time which improves with nasal cannula. He is still complaining of left sided flank pain; Rib X-ray showed non-displaced fractures in ribs 7 and 8. He denies fevers/ chills. Patient is speaking in full sentences and is in no acute distress. 1 Objective - Vital Signs/Intake and Output Vital Signs (last 24 hours): Temp Pulse Resp BP Pulse Ox 97.5 F L 61 18 147/78 95 07/22/17 07:30 07/22/17 13:00 07/22/17 07:30 07/22/17 07:30 07/22/17 07:30 Intake and Output: 07/22/17 07/22/17 06:59 18:59 Intake Total 400 Balance 400 - Medications Medications: Current Medications Acetaminophen/Codeine Phosphate (Tylenol/Codeine 300 Mg/30 Mg) 2 ea PO Q6 PRN PRN Reason: pain Last Admin: 07/22/17 09:06 Dose: 2 ea Albuterol/Ipratropium (Duoneb 3 Mg/0.5 Mg (3 Ml) Ud) 3 ml INH RQ6 [facility] Last Admin: 07/22/17 14:12 Dose: Not Given Amlodipine Besylate (Norvasc) 5 mg PO DAILY [facility] Last Admin: 07/22/17 09:05 Dose: 5 mg Apixaban (Eliquis) 5 mg PO BID [facility] Last Admin: 07/22/17 09:05 Dose: 5 mg Docusate Sodium (Colace) 100 mg PO BID [facility] Last Admin: 07/22/17 09:08 Dose: Not Given Doxazosin Mesylate (Cardura) 2 mg PO DAILY [facility] Last Admin: 07/22/17 09:05 Dose: 2 mg Hydrochlorothiazide (Hydrodiuril) 25 mg PO DAILY [facility] Last Admin: 07/22/17 09:05 Dose: 25 mg Losartan Potassium (Cozaar) 100 mg PO DAILY [facility] Last Admin: 07/22/17 09:05 Dose: 100 mg Methylprednisolone (Solu-Medrol) 40 mg IV Q12 [facility] Last Admin: 07/22/17 09:06 Dose: 40 mg Metoprolol Tartrate (Lopressor) 50 mg PO DAILY [facility] Last Admin: 07/22/17 09:05 Dose: 50 mg Pantoprazole Sodium (Protonix Ec Tab) 40 mg PO DAILY [facility] Last Admin: 07/22/17 09:05 Dose: 40 mg Rosuvastatin Calcium (Crestor) 10 mg PO HS [facility] Last Admin: 07/21/17 21:45 Dose: 10 mg Fluticasone/Salmeterol (Advair Diskus 250/50) 1 puff INH RQ12 [facility] Last Admin: 07/22/17 09:33 Dose: 1 puff Sertraline HCl (Zoloft) 100 mg PO DAILY [facility] Last Admin: 07/22/17 09:05 Dose: 100 mg Tiotropium [place] (Spiriva) 18 mcg INH RQ24 [facility] Last Admin: 07/22/17 09:35 Dose: 18 mcg - Labs Labs: 07/22/17 08:19 07/22/17 08:19 PT 11.2 SECONDS (9.7-12.2) 07/17/17 12:39 INR 1.0 07/17/17 12:39 APTT 30 SECONDS (21-34) 07/17/17 12:39 - Head Exam Head Exam: ATRAUMATIC, NORMOCEPHALIC - Eye Exam Pupil Exam: NORMAL ACCOMODATION - ENT Exam ENT Exam: Mucous Membranes Moist - Neck Exam Neck Exam: Normal Inspection Assessment and Plan (1) COPD exacerbation Assessment & Plan: . COPD exacerbation - Duonebs Q6h -Solumedrol 40 mg Q12 -Spiriva 18 mcg INH daily - ABG within normal limits, O2 sat 94.9 - Advair 250/50 q12h - Codeine/Acetominophen 300/30 2 ea PO Q6 PRN 2. Rib fractures - Rib X-ray: non-displaced fractures in ribs 7 and 8. - Binder as needed 3. Chronic Pulmonary Embolism - R sided per chest CT (05/03/17) - Eliquis 5 mg PO BID Status: Acute (2) Costochondral joint sprain Status: Acute (3) Pulmonary embolism Status: Acute
[2017-07-22 17:44] VITALS: RESP 20
--- NOTE | 2017-07-22 19:47 | CP.PCM.PN ---
Subjective - Date & Time of Evaluation Date of Evaluation: 07/22/17 Time of Evaluation: 08:25 - Subjective Subjective: PGY1 Medicine Note for Dr. Cheng Patient seen and examined at bedside this morning. No acute events overnight. Patient is currently using a breathing treatment at the time of examine. He states that he is experiencing severe pain on the left side of his chest ( located where he has his 2 rib fractures). Patient states he has extreme pain generally upon waking from sleep, with movement or coughing. He states he asked for a breathing treatment due to feeling of difficulty breathing, but he states he thinks it is more due to the pain verses his COPD. He states the abdominal binder does help but he currently has it off to give his stomach a "rest". Denies fevers, chills, nausea, vomiting, diarrhea, constipation or headaches. Objective - Vital Signs/Intake and Output Vital Signs (last 24 hours): Temp Pulse Resp BP Pulse Ox 97.6 F 73 20 145/87 96 07/22/17 15:00 07/22/17 15:00 07/22/17 15:00 07/22/17 15:00 07/22/17 15:00 Intake and Output: 07/22/17 07/23/17 18:59 06:59 Intake Total 400 Balance 400 - Medications Medications: Current Medications Acetaminophen/Codeine Phosphate (Tylenol/Codeine 300 Mg/30 Mg) 2 ea PO Q6 PRN PRN Reason: pain Last Admin: 07/22/17 16:25 Dose: 2 ea Albuterol/Ipratropium (Duoneb 3 Mg/0.5 Mg (3 Ml) Ud) 3 ml INH RQ6 [facility] Last Admin: 07/22/17 14:12 Dose: Not Given Amlodipine Besylate (Norvasc) 5 mg PO DAILY [facility] Last Admin: 07/22/17 09:05 Dose: 5 mg Apixaban (Eliquis) 5 mg PO BID [facility] Last Admin: 07/22/17 18:52 Dose: 5 mg Docusate Sodium (Colace) 100 mg PO BID [facility] Last Admin: 07/22/17 18:52 Dose: 100 mg Doxazosin Mesylate (Cardura) 2 mg PO DAILY [facility] Last Admin: 07/22/17 09:05 Dose: 2 mg Hydrochlorothiazide (Hydrodiuril) 25 mg PO DAILY [facility] Last Admin: 07/22/17 09:05 Dose: 25 mg Losartan Potassium (Cozaar) 100 mg PO DAILY [facility] Last Admin: 07/22/17 09:05 Dose: 100 mg Methylprednisolone (Solu-Medrol) 40 mg IV Q12 [facility] Last Admin: 07/22/17 09:06 Dose: 40 mg Metoprolol Tartrate (Lopressor) 50 mg PO DAILY [facility] Last Admin: 07/22/17 09:05 Dose: 50 mg Pantoprazole Sodium (Protonix Ec Tab) 40 mg PO DAILY [facility] Last Admin: 07/22/17 09:05 Dose: 40 mg Rosuvastatin Calcium (Crestor) 10 mg PO HS [facility] Last Admin: 07/21/17 21:45 Dose: 10 mg Fluticasone/Salmeterol (Advair Diskus 250/50) 1 puff INH RQ12 [facility] Last Admin: 07/22/17 09:33 Dose: 1 puff Sertraline HCl (Zoloft) 100 mg PO DAILY [facility] Last Admin: 07/22/17 09:05 Dose: 100 mg Tiotropium [place] (Spiriva) 18 mcg INH RQ24 [facility] Last Admin: 07/22/17 09:35 Dose: 18 mcg - Labs Labs: 07/22/17 08:19 07/22/17 08:19 PT 11.2 SECONDS (9.7-12.2) 07/17/17 12:39 INR 1.0 07/17/17 12:39 APTT 30 SECONDS (21-34) 07/17/17 12:39 - Constitutional Appears: Non-toxic, In Acute Distress (mild distress due to left sided rib pain. ) - Head Exam Head Exam: ATRAUMATIC - Eye Exam Eye Exam: EOMI, Normal appearance Pupil Exam: NORMAL ACCOMODATION - ENT Exam ENT Exam: Mucous Membranes Moist - Respiratory Exam Respiratory Exam: Clear to Ausculation Bilateral (using breathing treatment at time of exam.), NORMAL BREATHING PATTERN. absent: Accessory Muscle Use, Rales, Rhonchi, Wheezes Additional comments: Left sided rib pain, tender to palpation. Patient refusing to breathe deeply due to pain. - Cardiovascular Exam Cardiovascular Exam: REGULAR RHYTHM, +S1, +S2 - GI/Abdominal Exam GI & Abdominal Exam: Soft. absent: Distended, Firm, Guarding, Rigid, Tenderness - Extremities Exam Extremities Exam: absent: Calf Tenderness, Pedal Edema - Neurological Exam Neurological Exam: Alert, Awake, Oriented x3 - Psychiatric Exam Psychiatric exam: Normal Affect, Normal Mood - Skin Skin Exam: Dry, Warm Assessment and Plan - Assessment and Plan (Free Text) Plan: COPD Exacerbation Duoneb Q6 [facility] Decreased Solumedrol 40 mg IV Q12H. Will continue to decrease steroids daily as pt has clinical improvement in respirations Spiriva 18 mcg INH daily Resumed home Advair 250/50 Q12H Pulmonology consult, Dr. Glasgow, help appreciated Non-displaced Rib 7 & 8 fractures Troponins x3 negative and EKG normal Echo from 04/26 showed normal LV EF, mild AR and mod pulm HTN Rib x rays done yesterday showed non-displaced fractures of ribs 7 and 8. Tylenol #3, 2 tabs Q6H prn pain * Patient states medicine helps but he is still experiencing break through pain * awaiting call back for pain management. Will consult pain management, Dr. Elias. Reached out to Dr. Elias, waiting to hear back. Abdominal binder as needed Encourage IS History of Pulmonary Embolus Right sided per Chest CT on 05/03/17 Resumed home Eliquis 5 mg PO BID Patient is educated on proper dosing for Eliquis. It is explained to him that his Eliquis 5 mg tab must be taken once in the morning and 5 mg tab once at night, and not 10 mg together in the morning. He understands. History of Hypertension Resumed home Losartan 100 mg PO daily Resumed home Lopressor 50 mg PO daily Resumed home Norvasc 5 mg PO daily Resumed home HCTZ 25 mg PO daily Resumed home Cardura 2 mg PO daily History of Hyperlipidemia Simvastatin not on formulary. Crestor 10 mg PO HS History of Anxiety Resumed home Zoloft 100 mg PO daily Prophylactic Measure Cardiac Diet Eliquis 5 mg PO BID Protonix 40 mg PO daily Patient will be given script for abdominal binder Case discussed with Dr. Skylar Palacios Stas PGY1
[2017-07-23] MEDS: Acetaminophen-Codeine 300/30 mg Tab PO PRN ×3 (02:48→17:41)
--- NOTE | 2017-07-23 07:40 | CP.PCM.PN ---
Subjective - Date & Time of Evaluation Date of Evaluation: 07/23/17 Time of Evaluation: 07:39 - Subjective Subjective: PGY1 Medicine Note Dr. Cheng Objective - Vital Signs/Intake and Output Vital Signs (last 24 hours): Temp Pulse Resp BP Pulse Ox 97 F L 74 20 128/69 94 L 07/22/17 23:35 07/22/17 23:35 07/22/17 23:35 07/22/17 23:35 07/22/17 23:35 - Medications Medications: Current Medications Acetaminophen/Codeine Phosphate (Tylenol/Codeine 300 Mg/30 Mg) 2 ea PO Q6 PRN PRN Reason: pain Last Admin: 07/23/17 02:48 Dose: 2 ea Amlodipine Besylate (Norvasc) 5 mg PO DAILY [facility] Last Admin: 07/22/17 09:05 Dose: 5 mg Apixaban (Eliquis) 5 mg PO BID [facility] Last Admin: 07/22/17 18:52 Dose: 5 mg Docusate Sodium (Colace) 100 mg PO BID [facility] Last Admin: 07/22/17 18:52 Dose: 100 mg Doxazosin Mesylate (Cardura) 2 mg PO DAILY [facility] Last Admin: 07/22/17 09:05 Dose: 2 mg Hydrochlorothiazide (Hydrodiuril) 25 mg PO DAILY [facility] Last Admin: 07/22/17 09:05 Dose: 25 mg Losartan Potassium (Cozaar) 100 mg PO DAILY [facility] Last Admin: 07/22/17 09:05 Dose: 100 mg Methylprednisolone (Solu-Medrol) 40 mg IV Q12 [facility] Last Admin: 07/22/17 23:01 Dose: 40 mg Metoprolol Tartrate (Lopressor) 50 mg PO DAILY [facility] Last Admin: 07/22/17 09:05 Dose: 50 mg Pantoprazole Sodium (Protonix Ec Tab) 40 mg PO DAILY [facility] Last Admin: 07/22/17 09:05 Dose: 40 mg Rosuvastatin Calcium (Crestor) 10 mg PO HS [facility] Last Admin: 07/22/17 23:01 Dose: 10 mg Fluticasone/Salmeterol (Advair Diskus 250/50) 1 puff INH RQ12 [facility] Last Admin: 07/22/17 19:59 Dose: 1 puff Sertraline HCl (Zoloft) 100 mg PO DAILY [facility] Last Admin: 07/22/17 09:05 Dose: 100 mg Tiotropium [place] (Spiriva) 18 mcg INH RQ24 [facility] Last Admin: 07/22/17 09:35 Dose: 18 mcg - Labs Labs: 07/22/17 08:19 07/22/17 08:19 PT 11.2 SECONDS (9.7-12.2) 07/17/17 12:39 INR 1.0 07/17/17 12:39 APTT 30 SECONDS (21-34) 07/17/17 12:39
[2017-07-23] MEDS: Fluticasone-Salmeterol 250-50mcg Diskus INH SCH (09:13)
[2017-07-23] MEDS: Tiotropium 18 mcg Cap For Inhalation INH SCH (09:13)
[2017-07-23] MEDS: Pantoprazole 40 mg EC Tab PO SCH (10:45)
--- NOTE | 2017-07-23 10:50 | CP.PCM.CON ---
History of Present Illness - History of Present Illness History of Present Illness: 67 y/o PMH PE 2017, COPD, HTN, HLD, anxiety here for left sided rib pain. Found to have left rib fracture. Describes pain as tolerable 4/10 sharp pain at times in area of rib fracture, and goes down to 0/10 with tylenol 3. Otherwise, denies nausea/vomiting, chest pain, shortness of breath or other symptoms. Past Patient History - Infectious Disease Hx of Infectious Diseases: None - Past Medical History & Family History Past Medical History?: Yes - Past Social History Smoking Status: Former Smoker - CARDIAC Hx Hypercholesterolemia: Yes Hx Hypertension: Yes - PULMONARY Hx Asthma: Yes Hx Chronic Obstructive Pulmonary Disease (COPD): Yes Hx Pulmonary Embolism: Yes - NEUROLOGICAL Hx Neurological Disorder: No - HEENT Hx HEENT Problems: No - RENAL Hx Kidney Stones: Yes - ENDOCRINE/METABOLIC Hx Endocrine Disorders: No - HEMATOLOGICAL/ONCOLOGICAL Hx Blood Transfusions: No - INTEGUMENTARY Hx Dermatological Problems: No - MUSCULOSKELETAL/RHEUMATOLOGICAL Hx Musculoskeletal Disorders: Yes Hx Falls: Yes - GASTROINTESTINAL Hx Gastrointestinal Disorders: No - GENITOURINARY/GYNECOLOGICAL Hx Genitourinary Disorders: No - PSYCHIATRIC Hx Anxiety: Yes Hx Substance Use: No - SURGICAL HISTORY Hx Orthopedic Surgery: Yes (B/L SHOULDER, LEFT KNEE) Other/Comment: LEFT EAR, LEFT ARM MUSCLE, LITHROTRIPSY - ANESTHESIA Hx Anesthesia: Yes Hx Anesthesia Reactions: No Hx Malignant Hyperthermia: No Meds Allergies/Adverse Reactions: Allergies Allergy/AdvReac Type Severity Reaction Status Date / Time clindamycin Allergy Verified 05/06/17 16:12 - Medications Medications: Current Medications Acetaminophen/Codeine Phosphate (Tylenol/Codeine 300 Mg/30 Mg) 2 ea PO Q6 PRN PRN Reason: pain Last Admin: 07/23/17 02:48 Dose: 2 ea Amlodipine Besylate (Norvasc) 5 mg PO DAILY [facility] Last Admin: 07/22/17 09:05 Dose: 5 mg Apixaban (Eliquis) 5 mg PO BID [facility] Last Admin: 07/22/17 18:52 Dose: 5 mg Docusate Sodium (Colace) 100 mg PO BID [facility] Last Admin: 07/22/17 18:52 Dose: 100 mg Doxazosin Mesylate (Cardura) 2 mg PO DAILY [facility] Last Admin: 07/22/17 09:05 Dose: 2 mg Hydrochlorothiazide (Hydrodiuril) 25 mg PO DAILY [facility] Last Admin: 07/22/17 09:05 Dose: 25 mg Losartan Potassium (Cozaar) 100 mg PO DAILY [facility] Last Admin: 07/22/17 09:05 Dose: 100 mg Methylprednisolone (Solu-Medrol) 40 mg IV Q12 [facility] Last Admin: 07/22/17 23:01 Dose: 40 mg Metoprolol Tartrate (Lopressor) 50 mg PO DAILY [facility] Last Admin: 07/22/17 09:05 Dose: 50 mg Pantoprazole Sodium (Protonix Ec Tab) 40 mg PO DAILY [facility] Last Admin: 07/22/17 09:05 Dose: 40 mg Rosuvastatin Calcium (Crestor) 10 mg PO HS [facility] Last Admin: 07/22/17 23:01 Dose: 10 mg Fluticasone/Salmeterol (Advair Diskus 250/50) 1 puff INH RQ12 [facility] Last Admin: 07/23/17 09:13 Dose: 1 puff Sertraline HCl (Zoloft) 100 mg PO DAILY [facility] Last Admin: 07/22/17 09:05 Dose: 100 mg Tiotropium [place] (Spiriva) 18 mcg INH RQ24 [facility] Last Admin: 07/23/17 09:13 Dose: 18 mcg Physical Exam - Constitutional Appears: Well - Respiratory Exam Respiratory Exam: Clear to Auscultation Bilateral Additional comments: tender to palpation left 8th rib posteriorly - Cardiovascular Exam Cardiovascular Exam: REGULAR RHYTHM, +S1, +S2 - GI/Abdominal Exam GI & Abdominal Exam: Normal Bowel Sounds, Soft - Extremities Exam Extremities exam: Positive for: normal inspection Additional comments: warm, well perfused all extremities Results - Vital Signs Recent Vital Signs: Last Vital Signs Temp 97.3 F L 07/23/17 08:23 Pulse 69 07/23/17 08:23 Resp 20 07/23/17 08:23 BP 150/88 07/23/17 08:23 Pulse Ox 97 07/23/17 08:23 - Labs Result Diagrams: 07/22/17 08:19 07/22/17 08:19 Assessment & Plan - Assessment and Plan (Free Text) Assessment: 67 y/o PMH PE 2017, COPD, HTN, HLD, anxiety here for left sided rib/back pain 2/ 2 to nondisplaced rib fractures. Patient is awake/alert, denies drowsiness, ambulating around room, conversational, breathing well, able to cough. He states pain comes back around time for his next dose of Tylenol 3. -would continue current pain regimen of tylenol 3 PRN as patient describing good pain relief, denies drowsiness -would continue for 7 days -bowel regimen as needed -patient can follow up with primary doctor at that time if pain has not resolved or can call [phone] to follow up at [facility]
[2017-07-23] MEDS: MethylPREDNISolone 40 mg Vial IV SCH (10:53)
[2017-07-23 11:54] LABS: BASO % 0.2 % (0.0-2.0); HEMOGLOBIN 14.8 g/dL (12.0-18.0); LYMPH # 0.8 K/uL (1.0-4.3); LYMPH % 5.7 % (20.0-40.0); MEAN CELL VOLUME 86.6 fL (80.0-94.0); MEAN CORPUSCULAR HEMOGLOBIN 28.9 pg (27.0-31.0); MEAN CORPUSCULAR HGB CONC 33.4 g/dL (33.0-37.0); MEAN PLATELET VOLUME 7.9 fL (7.2-11.7); MONO % 6.6 % (0.0-10.0); NEUT # 12.8 K/uL (1.8-7.0); NEUT % 87.5 % (50.0-75.0); NRBC % 0.1 % (0.0-2.0); PLATELET COUNT 331 K/uL (130-400); RBC 5.11 Mil/uL (4.40-5.90); RED CELL DISTRIBUTION WIDTH 14.3 % (11.5-14.5); WHITE BLOOD COUNT 14.6 K/uL (4.8-10.8)
[2017-07-23 12:10] LABS: ALB/GLOB RATIO 1.4 (1.0-2.1); ALBUMIN 4.1 g/dL (3.5-5.0); ALT/SGPT 56 U/L (21-72); AST/SGOT 28 U/L (17-59); BLOOD UREA NITROGEN 37 mg/dL (9-20); CALCIUM 9.1 mg/dl (8.6-10.4); GFR AFRICAN-AMERICAN > 60; GFR NON-AFRICAN AMERICAN > 60; MAGNESIUM 2.2 mg/dL (1.6-2.3)
[2017-07-23 12:27] LABS: BANDS 2 % (0-2); LYMPHOCYTE 6 % (20-40); MONOCYTE 5 % (0-10); MYELOCYTE 1 % (0-0); NEUTROPHIL 86 % (50-75); PLATELET ESTIMATE NORMAL (NORMAL); TOTAL CELLS COUNTED 100
--- NOTE | 2017-07-23 14:31 | CP.PCM.PN ---
Subjective - Date & Time of Evaluation Date of Evaluation: 07/23/17 Time of Evaluation: 09:00 - Subjective Subjective: Patient seen and examined at bedside. He is still complaining of left sided flank pain consistent with his two left sided rib fractures. He denies fevers/ chills. Patient is speaking in full sentences and is in no acute distress. He is inquiring about discharge and pain control. 1. COPD exacerbation - Duonebs Q6h -Solumedrol 40 mg Q12 -Spiriva 18 mcg INH daily - ABG within normal limits, O2 sat 94.9 - Advair 250/50 q12h - Codeine/Acetominophen 300/30 2 ea PO Q6 PRN 2. Rib fractures - Rib X-ray: non-displaced fractures in ribs 7 and 8. - Binder as needed 3. Chronic Pulmonary Embolism - R sided per chest CT (05/03/17) - Eliquis 5 mg PO BID Objective - Vital Signs/Intake and Output Vital Signs (last 24 hours): Temp Pulse Resp BP Pulse Ox 97.3 F L 83 20 150/88 97 07/23/17 08:23 07/23/17 11:05 07/23/17 08:23 07/23/17 08:23 07/23/17 08:23 - Medications Medications: Current Medications Acetaminophen/Codeine Phosphate (Tylenol/Codeine 300 Mg/30 Mg) 2 ea PO Q6 PRN PRN Reason: pain Last Admin: 07/23/17 10:42 Dose: 2 ea Amlodipine Besylate (Norvasc) 5 mg PO DAILY [facility] Last Admin: 07/23/17 10:44 Dose: 5 mg Apixaban (Eliquis) 5 mg PO BID [facility] Last Admin: 07/23/17 10:45 Dose: 5 mg Docusate Sodium (Colace) 100 mg PO BID [facility] Last Admin: 07/23/17 10:57 Dose: Not Given Doxazosin Mesylate (Cardura) 2 mg PO DAILY [facility] Last Admin: 07/23/17 11:17 Dose: 2 mg Hydrochlorothiazide (Hydrodiuril) 25 mg PO DAILY [facility] Last Admin: 07/23/17 10:45 Dose: 25 mg Losartan Potassium (Cozaar) 100 mg PO DAILY [facility] Last Admin: 07/23/17 10:42 Dose: 100 mg Methylprednisolone (Solu-Medrol) 40 mg IV Q12 [facility] Last Admin: 07/23/17 10:53 Dose: 40 mg Metoprolol Tartrate (Lopressor) 50 mg PO DAILY [facility] Last Admin: 07/23/17 10:46 Dose: 50 mg Pantoprazole Sodium (Protonix Ec Tab) 40 mg PO DAILY [facility] Last Admin: 07/23/17 10:45 Dose: 40 mg Rosuvastatin Calcium (Crestor) 10 mg PO HS [facility] Last Admin: 07/22/17 23:01 Dose: 10 mg Fluticasone/Salmeterol (Advair Diskus 250/50) 1 puff INH RQ12 [facility] Last Admin: 07/23/17 09:13 Dose: 1 puff Sertraline HCl (Zoloft) 100 mg PO DAILY [facility] Last Admin: 07/23/17 10:46 Dose: 100 mg Tiotropium [place] (Spiriva) 18 mcg INH RQ24 [facility] Last Admin: 07/23/17 09:13 Dose: 18 mcg - Labs Labs: 07/23/17 11:40 07/23/17 11:40 PT 11.2 SECONDS (9.7-12.2) 07/17/17 12:39 INR 1.0 07/17/17 12:39 APTT 30 SECONDS (21-34) 07/17/17 12:39 Assessment and Plan (1) COPD exacerbation Status: Acute (2) Costochondral joint sprain Status: Acute (3) Pulmonary embolism Status: Acute
[2017-07-23 16:06] VITALS: BP 135/71; TEMP 97.7; O2SAT 96
--- NOTE | 2017-07-23 16:08 | CP.PCM.DIS ---
Provider - Provider Date of Admission: 07/19/17 19:03 Attending physician: Guanako Cheng Jr, MD Consults: Pulmonary - [facility] - [facility] Time Spent in preparation of Discharge (in minutes): 45 Hospital Course - Lab Results Lab Results: Most Recent Lab Values WBC 14.6 K/uL (4.8-10.8) H 07/23/17 11:40 RBC 5.11 Mil/uL (4.40-5.90) 07/23/17 11:40 Hgb 14.8 g/dL (12.0-18.0) 07/23/17 11:40 Hct 44.2 % (35.0-51.0) 07/23/17 11:40 MCV 86.6 fL (80.0-94.0) 07/23/17 11:40 MCH 28.9 pg (27.0-31.0) 07/23/17 11:40 MCHC 33.4 g/dL (33.0-37.0) 07/23/17 11:40 RDW 14.3 % (11.5-14.5) 07/23/17 11:40 Plt Count 331 K/uL (130-400) 07/23/17 11:40 MPV 7.9 fL (7.2-11.7) 07/23/17 11:40 Neut % (Auto) 87.5 % (50.0-75.0) H 07/23/17 11:40 Lymph % (Auto) 5.7 % (20.0-40.0) L 07/23/17 11:40 [place] % (Auto) 6.6 % (0.0-10.0) 07/23/17 11:40 Eos % (Auto) 0.0 % (0.0-4.0) 07/23/17 11:40 Baso % (Auto) 0.2 % (0.0-2.0) 07/23/17 11:40 Neut # (Auto) 12.8 K/uL (1.8-7.0) H 07/23/17 11:40 Lymph # (Auto) 0.8 K/uL (1.0-4.3) L 07/23/17 11:40 Stevens # (Auto) 1.0 K/uL (0.0-0.8) H 07/23/17 11:40 Eos # (Auto) 0.0 K/uL (0.0-0.7) 07/23/17 11:40 Baso # (Auto) 0.0 K/uL (0.0-0.2) 07/23/17 11:40 Neutrophils % (Manual) 86 % (50-75) H 07/23/17 11:40 Band Neutrophils % 2 % (0-2) 07/23/17 11:40 Lymphocytes % (Manual) 6 % (20-40) L 07/23/17 11:40 Reactive Lymphs % 1 % (0-0) H 07/19/17 07:44 Monocytes % (Manual) 5 % (0-10) 07/23/17 11:40 Myelocytes % 1 % (0-0) H 07/23/17 11:40 Toxic Granulation Present 07/21/17 08:29 Platelet Estimate Normal (NORMAL) 07/23/17 11:40 Large Platelets Present 07/21/17 08:29 Giant Platelets Present 07/21/17 08:29 RBC Morphology Normal 07/20/17 07:22 Polychromasia Slight 07/21/17 08:29 Hypochromasia (manual) Slight 07/21/17 08:29 Basophilic Stippling Slight 07/21/17 08:29 Anisocytosis (manual) Slight 07/21/17 08:29 PT 11.2 SECONDS (9.7-12.2) 07/17/17 12:39 INR 1.0 07/17/17 12:39 APTT 30 SECONDS (21-34) 07/17/17 12:39 Puncture Site Rba 07/17/17 19:37 pCO2 34 mm/Hg (35-45) L 07/17/17 19:37 pO2 82 mm/Hg (80-100) 07/17/17 19:37 HCO3 24.5 mmol/L (21-28) 07/17/17 19:37 ABG pH 7.44 (7.35-7.45) 07/17/17 19:37 ABG Total CO2 24.1 mmol/L (22-28) 07/17/17 19:37 ABG O2 Saturation 96.5 % (95-98) 07/17/17 19:37 ABG Base Excess -0.5 mmol/L (-2.0-3.0) 07/17/17 19:37 ABG Hemoglobin 13.1 g/dL (11.7-17.4) 07/17/17 19:37 ABG Carboxyhemoglobin 0.7 % (0.5-1.5) 07/17/17 19:37 POC ABG HHb (Measured) 3.4 % (0.0-5.0) 07/17/17 19:37 ABG Methemoglobin 1.0 % (0.0-3.0) 07/17/17 19:37 Javy Test Na 07/17/17 19:37 A-a O2 Difference 75.0 mm/Hg 07/17/17 19:37 Respiratory Index 0.9 07/17/17 19:37 Hgb O2 Saturation 94.9 % (95.0-98.0) L 07/17/17 19:37 Liter Flow 2.0 07/17/17 19:37 FiO2 28.0 % 07/17/17 19:37 Sodium 134 mmol/L (132-148) 07/23/17 11:40 Potassium 3.7 mmol/L (3.6-5.2) 07/23/17 11:40 Chloride 95 mmol/L (98-107) L 07/23/17 11:40 Carbon Dioxide 26 mmol/L (22-30) 07/23/17 11:40 Anion Gap 17 (10-20) 07/23/17 11:40 BUN 37 mg/dL (9-20) H 07/23/17 11:40 Creatinine 1.0 mg/dL (0.8-1.5) 07/23/17 11:40 Est GFR ( Amer) > 60 07/23/17 11:40 Est GFR (Non-Af Amer) > 60 07/23/17 11:40 Random Glucose 161 mg/dL (75-110) H 07/23/17 11:40 Calcium 9.1 mg/dl (8.6-10.4) 07/23/17 11:40 Phosphorus 3.7 mg/dL (2.5-4.5) 07/23/17 11:40 Magnesium 2.2 mg/dL (1.6-2.3) 07/23/17 11:40 Total Bilirubin 0.6 mg/dL (0.2-1.3) 07/23/17 11:40 AST 28 U/L (17-59) 07/23/17 11:40 ALT 56 U/L (21-72) 07/23/17 11:40 Alkaline Phosphatase 69 U/L (38-126) 07/23/17 11:40 Total Creatine Kinase 123 U/L (55-170) 07/18/17 00:18 CK-MB (Mass) 1.97 ng/mL (0.0-3.38) 07/18/17 00:18 Troponin I < 0.0120 ng/mL (0.00-0.120) 07/18/17 00:18 Total Protein 7.0 g/dL (6.3-8.3) 07/23/17 11:40 Albumin 4.1 g/dL (3.5-5.0) 07/23/17 11:40 Globulin 2.9 gm/dL (2.2-3.9) 07/23/17 11:40 Albumin/Globulin Ratio 1.4 (1.0-2.1) 07/23/17 11:40 - Hospital Course Hospital Course: As per admission history and physical This is a 67 year old male with PMHx right sided PE (dx 05/03/17), COPD, HTN, HLD, Anxiety, Nephrolithiasis who presents complaining of shortness of breath and cough that woke him from sleep this morning around 3 AM. Patient reports that he has a chronic cough which intermittently exacerbates. Patient is also complaining of left sided rib pain that he has had for quite some time. This is a sharp burning pain that worsens with excessive coughing and deep palpation. The pain radiates to the left arm with associated numbness. Patient states that his ribs "felt like somebody kicked me." Patient states it worsened around 10 AM. He took 2 tabs of Advil without relief. After that, he took 5 baby aspirin tablets. Patient reports heartburn after that, and he tried to drink some buttermilk to relieve it. Of note, patient states that he takes both doses of his Eliquis in the morning so that he does not forget to take the second dose at night, meaning he takes a total of 10 mg of Eliquis in the morning only. Also of note is that the patient had recent garg in June due to injury from the steam of a pressure cooker that he opened while the pressure was still high. These garg cover his abdomen and right arm, but the garg are much improved from last month. Hospital Course Patient admitted to the hospital for COPD exacerbation and chest pain (r/o ACS) . He was found to have non-displaced rib fractures at ribs 7 and 8 on the left side of his chest. ACS was ruled out with troponins x3 negative and EKG normal. His COPD was treated with Duonebs q6h, solumedrol 40mg q12h, Advair 250/50 q12h and Spiriva 18mcg INH daily. He was given Tylenol with Codeine for pain while he here in the hospital. His breathing improved and he had no acute events throughout his hospital stay. He was given an abdominal binder which the patient stated improved his pain. Discharge Instructions Patient to be discharged home, per Dr. Cheng. Patient is to follow up with his primary care physician within 5 days of discharge. If pain has not resolved, patient can also call [phone] to follow up at [facility]. If patient experiences any new or worsening symptoms, please return to the nearest emergency room. No new prescriptions given at this time. - Constitutional Appears: Non-toxic, In Acute Distress (mild distress due to left sided rib pain. ) - Head Exam Head Exam: ATRAUMATIC - Eye Exam Eye Exam: EOMI, Normal appearance Pupil Exam: NORMAL ACCOMODATION - ENT Exam ENT Exam: Mucous Membranes Moist - Respiratory Exam Respiratory Exam: Clear to Ausculation Bilateral (using breathing treatment at time of exam.), NORMAL BREATHING PATTERN. absent: Accessory Muscle Use, Rales, Rhonchi, Wheezes Additional comments: Left sided rib pain, tender to palpation. Patient refusing to breathe deeply due to pain. - Cardiovascular Exam Cardiovascular Exam: REGULAR RHYTHM, +S1, +S2 - GI/Abdominal Exam GI & Abdominal Exam: Soft. absent: Distended, Firm, Guarding, Rigid, Tenderness - Extremities Exam Extremities Exam: absent: Calf Tenderness, Pedal Edema - Neurological Exam Neurological Exam: Alert, Awake, Oriented x3 - Psychiatric Exam Psychiatric exam: Normal Affect, Normal Mood - Skin Skin Exam: Dry, Warm - Date & Time of H&P Date of H&P: 07/17/17 Time of H&P: 17:30 Discharge Exam - Head Exam Head Exam: ATRAUMATIC Discharge Plan - Follow Up Plan Condition: STABLE Disposition: HOME/ ROUTINE Instructions: Chest Pain (DC), Heart Healthy Diet (DC), COPD (Chronic Obstructive Pulmonary Disease) (DC) Additional Instructions: Patient to be discharged home, per Dr. Cheng. Patient is to follow up with his primary care physician within 5 days of discharge. If pain has not resolved, patient can also call [phone] to follow up at [facility]. If patient experiences any new or worsening symptoms, please return to the nearest emergency room. No new prescriptions given at this time. Referrals: Guanako Cheng Jr., MD [Medical Doctor] -
[2017-07-23 19:09] VITALS: PULSE 65
== END 2017-07-23 19:14 | disposition home or self-care (01) | DRG 190 ==
LOC: C.ER 11:47 → C.9E 15:05 → C.6T 20:43 → OBSVTOIN 07-19 19:03
PROVIDERS: ADMIT Internal Medicine; ATTEND Internal Medicine
DX: J44.1 Chronic obstructive pulmonary disease with (acute) exacerbation (principal); I26.99 Other pulmonary embolism without acute cor pulmonale; I27.20 Pulmonary hypertension, unspecified; I27.82 Chronic pulmonary embolism; S22.41XA Multiple fractures of ribs, right side, initial encounter for closed fracture; Z68.41 Body mass index [BMI] 40.0-44.9, adult; K59.00 Constipation, unspecified; I10 Essential (primary) hypertension; E78.5 Hyperlipidemia, unspecified; Z87.891 Personal history of nicotine dependence; X58.XXXA Exposure to other specified factors, initial encounter

== ENCOUNTER 2018-03-07 21:00 | Emergency (ER) | payer MEDICARE ==
[2018-03-07 21:07] VITALS: TEMP 98.6; O2SAT 96
--- NOTE | 2018-03-07 21:27 | C.PDOC ---
History Of Present Illness 67 y/o male comes in status post fall yesterday when he fell off a ladder at the top deck of the pool. Notes of LOC, unknown down time, and was found by his son. Patient also complains of left shoulder pain. He later remembers going up the ladder, falling, and his son talking to him. - HPI Time Seen by Provider: 03/07/18 21:27 Chief Complaint (Nursing): Trauma History Per: Patient History/Exam Limitations: no limitations Onset/Duration Of Symptoms: Days Injury Occurred (Timing): Days Ago: (1) Severity: Moderate Pain Scale Rating Of: 4 Associated Symptoms: LOC Recent travel outside of the [place]: Yes () Past Medical History Reviewed: Historical Data, Nursing Documentation, Vital Signs Vital Signs: Last Vital Signs Temp 98.6 F 03/07/18 21:06 Pulse 88 03/07/18 21:06 Resp 16 03/07/18 21:06 BP 167/84 H 03/07/18 21:06 Pulse Ox 96 03/07/18 21:06 - Medical History PMH: Anxiety, Asthma, COPD, HTN, Hypercholesterolemia, Hyperlipidemia, Kidney Stones, Pulmonary Embolism Surgical History: Hernia Repair - [facility] Procedures ASSISTANCE WITH RESPIRATORY VENTILATION, 24-96 HRS, CPAP (05/03/17) Family History: States: No Known Family Hx - Social History Hx Tobacco Use: Yes (15 yr, 1 pack) Hx Alcohol Use: Yes Hx Substance Use: No - Immunization History Hx Tetanus Toxoid Vaccination: No Hx Influenza Vaccination: No Hx Pneumococcal Vaccination: No Review Of Systems Constitutional: Negative for: Fever Cardiovascular: Negative for: Chest Pain Respiratory: Negative for: Shortness of Breath Gastrointestinal: Negative for: Nausea, Vomiting Musculoskeletal: Positive for: Shoulder Pain (L) Neurological: Positive for: Other (LOC). Negative for: Weakness, Numbness Physical Exam - Physical Exam Appears: Non-toxic, No Acute Distress Skin: Warm, Dry, Ecchymosis (Large size, over L shoulder), Other (Small abrasion on L knee) Head: Normacephalic Eye(s): bilateral: Normal Inspection Ear(s): Bilateral: Normal Nose: No Deformity, No Septal Hematoma Oral Mucosa: Moist Neck: Supple Chest: Symmetrical, No Deformity, Tenderness Cardiovascular: Rhythm Regular Respiratory: No Rales, No Rhonchi, No Wheezing Gastrointestinal/Abdominal: Bowel Sounds (Normal), Soft, No Tenderness, No Guarding, No Rebound Back: No CVA Tenderness ( ) Extremity: Tenderness (to L rib side on midclavicular line around T7 and T8; no crepitus), Capillary Refill (less than 2 seconds), Other (L shoulder has good ROM; tenderness to L clavicle, large left shoulder ecchimosis) Pulses: Left Radial: Normal, Right Radial: Normal, Left Dorsalis Pedis: Normal, Right Dorsalis Pedis: Normal Neurological/Psych: Oriented x3 (AAOx3), Normal Speech Gait: Steady ED Course And Treatment - Laboratory Results Result Diagrams: 03/07/18 22:11 03/07/18 21:55 ECG: Interpreted By Me, Viewed By Me ECG Rhythm: Sinus Rhythm (80), Nonspecific Changes O2 Sat by Pulse Oximetry: 96 (RA) Pulse Ox Interpretation: Normal - Radiology CXR: Interpreted by Me - Other Rad shoulder X-Ray: Interpreted by Me, Viewed By Me (fx clavicle, ) Progress Note: CT Chest, CT Head, EKG, Labs, urinalysis ordered. pt has inhalers and incentive spirometry at home. Instructed to use them Reevaluation Time: 00:18 Reassessment Condition: Improved Disposition Counseled Patient/Family Regarding: Studies Performed, Diagnosis, Need For Followup, Rx Given - Disposition Referrals: Guanako Cheng Jr., MD [Medical Doctor] - Disposition: HOME/ ROUTINE Disposition Time: 21:27 Condition: FAIR Additional Instructions: Please return if symptoms recur Prescriptions: Codeine 30 mg PO Q6H PRN #20 tab PRN Reason: Pain, Severe (8-10) Polyethylene Glycol 3350 [Miralax] 17 gm PO DAILY #270 ml Instructions: Clavicle Fracture (DC), Rib Fracture (DC), Contusion (DC) Forms: [employer] (Syriac) - Clinical Impression Clinical Impression: Fall, Fracture, clavicle, Fracture, ribs, Chest wall contusion - Scribe Statement The provider has reviewed the documentation as recorded by the Morris Yang Provider Attestation: All medical record entries made by the Joselinibe were at my direction and personally dictated by me. I have reviewed the chart and agree that the record accurately reflects my personal performance of the history, physical exam, medical decision making, and the department course for this patient. I have also personally directed, reviewed, and agree with the discharge instructions and disposition.
[2018-03-07 22:13] LABS: ALB/GLOB RATIO 1.7 (1.0-2.1); ALBUMIN 4.4 g/dL (3.5-5.0); ALT/SGPT 47 U/L (21-72); AST/SGOT 55 U/L (17-59); BLOOD UREA NITROGEN 23 mg/dL (9-20); CALCIUM 9.2 mg/dl (8.6-10.4); GFR NON-AFRICAN AMERICAN > 60
[2018-03-07 22:15] LABS: BASO # 0.1 K/uL (0.0-0.2); BASO % 0.7 % (0.0-2.0); EOS # 0.4 K/uL (0.0-0.7); EOS % 5.1 % (0.0-4.0); HEMOGLOBIN 14.7 g/dL (12.0-18.0); LYMPH # 1.1 K/uL (1.0-4.3); LYMPH % 13.8 % (20.0-40.0); MEAN CELL VOLUME 86.3 fL (80.0-94.0); MEAN CORPUSCULAR HGB CONC 34.8 g/dL (33.0-37.0); MEAN PLATELET VOLUME 7.4 fL (7.2-11.7); MONO # 0.7 K/uL (0.0-0.8); MONO % 8.6 % (0.0-10.0); NEUT # 5.5 K/uL (1.8-7.0); NEUT % 71.8 % (50.0-75.0); RBC 4.88 Mil/uL (4.40-5.90); RED CELL DISTRIBUTION WIDTH 14.7 % (11.5-14.5); WHITE BLOOD COUNT 7.7 K/uL (4.8-10.8)
[2018-03-07 22:22] LABS: PROTHROMBIN TIME 11.2 SECONDS (9.7-12.2)
[2018-03-07] MEDS ORDERED: Iodixanol 320 MG/ML 100 ML BOTTLE IV ONE (22:44)
[2018-03-07 23:38] LABS: URINE BILIRUBIN NEGATIVE (NEGATIVE); URINE BLOOD NEGATIVE (NEGATIVE); URINE CLARITY Clear (Clear); URINE COLOR Yellow (YELLOW); URINE GLUCOSE (UA) NORMAL (Normal); URINE HYALINE CAST 0-2 /lpf (0-2); URINE LEUKOCYTE ESTERASE NEG Leu/uL (Negative); URINE PROTEIN NEGATIVE (NEGATIVE)
[2018-03-08 00:11] VITALS: BP 163/78; PULSE 71; RESP 14
--- NOTE | 2018-03-08 10:31 | CT ---
Date of service: 03/07/2018 PROCEDURE: CT HEAD WITHOUT CONTRAST. HISTORY: Fall COMPARISON: Comparison made with prior CT scan brain dated 05/06/2017 TECHNIQUE: Axial computed tomography images were obtained through the head/brain without intravenous contrast. Radiation dose: Total exam DLP = 1665.11 mGy-cm. This CT exam was performed using one or more of the following dose reduction techniques: Automated exposure control, adjustment of the mA and/or kV according to patient size, and/or use of iterative reconstruction technique. Note the examination is limited by motion artifact FINDINGS: HEMORRHAGE: No intracranial hemorrhage. BRAIN: Mild diffuse/confluent chronic white matter ischemic changes seen extending peripherally into the deep and subcortical white matter both cerebral hemispheres.. Few more discrete age-indeterminate infarct changes seen in the right anterior basal ganglia and left jay radiata. No obvious parenchymal nor extra-axial mass or collection seen on this noncontrast exam Moderate generalized volume loss. VENTRICLES: No obstructive hydrocephalus. CALVARIUM: Unremarkable. PARANASAL SINUSES: Unremarkable as visualized. No significant inflammatory changes. MASTOID AIR CELLS: Unremarkable a the s visualized. No inflammatory changes. OTHER FINDINGS: None. IMPRESSION: No acute intracranial hemorrhage. Chronic white matter ischemic changes with more discrete age-indeterminate infarcts in the right anterior basal ganglia/and left jay radiata. Moderate generalized volume loss.
--- NOTE | 2018-03-08 14:23 | CT ---
Date of service: 03/07/2018 PROCEDURE: CT Chest, Abdomen and Pelvis with intravenous contrast HISTORY: Status post fall COMPARISON: Comparison made with prior CT scan abdomen pelvis 01/24/2018 and CTA of the chest 05/06/2017. TECHNIQUE: Contiguous helical/transaxial sections of the chest abdomen pelvis performed following intravenous injection of approximately 100 cc Visipaque 320 contrast material. Additional 2D sagittal and coronal reformats provided. Radiation dose: Total exam DLP = 1902.67 mGy-cm. This CT exam was performed using one or more of the following dose reduction techniques: Automated exposure control, adjustment of the mA and/or kV according to patient size, and/or use of iterative reconstruction technique. FINDINGS: CT CHEST WITH CONTRAST: LUNGS: Mild atelectasis and/or scarring changes seen left lung base including the left lingular region as well as right upper lobe.. MEDIASTINUM: Heart size appears mildly enlarged. No significant pericardial effusion. Ascending thoracic aorta measures approximately 3.8 cm and descending thoracic aorta measures approximately 2.9 cm. Pulmonary trunk measures approximately 3.3 cm. LYMPH NODES: No significant mediastinal or hilar adenopathy. Central airways midline and patent. No large central endoluminal lesions. Small hiatal hernia. PLEURA: Unremarkable. No pneumothorax. No pleural fluid. BONES: There are acute displaced fractures of the left lateral 4th and 5th ribs with old unfused fracture deformities of the left posterolateral 6th 7th and 8th ribs. In addition, there are old incompletely fused fractures of the right 7th and 9th ribs and healed fracture right posterolateral 8th rib.. Multilevel degenerative spondylosis of the thoracic spine. OTHER FINDINGS: None. CT ABDOMEN AND PELVIS: LIVER: Liver is enlarged measuring approximately 24 cm in CC dimension. Liver appears intact. Mild diffuse fatty hepatic infiltration. No obvious hepatic mass collection or calcification. Portal and splenic veins are opacified. GALLBLADDER AND BILE DUCTS: Cholelithiasis. PANCREAS: Pancreas appears atrophic and fatty replaced. No pancreatic masses collections or calcifications. SPLEEN: Spleen is intact. No splenic mass or collection. ADRENALS: Unremarkable. No mass. KIDNEYS AND URETERS: Unremarkable. No hydronephrosis. No solid mass. VASCULATURE: Unremarkable. No aortic aneurysm. BOWEL: Unremarkable. No obstruction. No gross mural thickening. Scattered colonic diverticula the bulk of which arise from the distal descending and sigmoid colon. No radiographic evidence of acute diverticulitis. APPENDIX: Normal appendix PERITONEUM: No evidence of free intraperitoneal air. No free or loculated fluid collections. Changes of right-sided inguinal herniorrhaphy. LYMPH NODES: Unremarkable. No enlarged lymph nodes. BLADDER: Urinary bladder incompletely distended which in part accounts for slight thick-walled appearance. Correlation with urinalysis recommended to exclude cystitis or UTI. No evidence of intraluminal urinary bladder calculi. REPRODUCTIVE: Prostate gland is enlarged measuring approximately 5.3 cm in transverse dimension. Prostatic calcifications are present.. BONES: Multilevel degenerative spondylosis of the lumbar spine OTHER FINDINGS: None. IMPRESSION: Acute displaced fractures of the left lateral 4th and 5th ribs with old unfused fracture deformities of the left posterolateral 6th 7th and 8th ribs. In addition, there are old incompletely fused fractures of the right 7th and 9th ribs and healed fracture right posterolateral 8th rib.. No evidence of acute intra thoracic or intra abdominal pathology. Cholelithiasis. Hepatomegaly with fatty infiltration. Diverticulosis without radiographic evidence of acute diverticulitis.
--- NOTE | 2018-03-08 16:50 | RAD ---
Date of service: 03/08/2018 PROCEDURE: Radiographs of the Left Shoulder HISTORY: fall COMPARISON: No prior. FINDINGS: BONES: Comminuted slightly displaced fracture distal 1/3 left clavicle. 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 The SOFT TISSUES: Normal. OTHER FINDINGS: None. IMPRESSION: Comminuted displaced fracture distal 1/3 left clavicle.
--- NOTE | 2018-03-10 10:02 | CARD ---
APPROVED REPORT Date of service: 03/07/2018 EKG Measurement Heart [id number] <Conclusion> Normal sinus rhythm Inferior infarct, age undetermined Abnormal ECG
== END 2018-03-08 00:36 | disposition home or self-care (01) ==
LOC: C.ER 21:00
DX: S42.032A Displaced fracture of lateral end of left clavicle, initial encounter for closed fracture (principal); S22.42XA Multiple fractures of ribs, left side, initial encounter for closed fracture; S20.219A Contusion of unspecified front wall of thorax, initial encounter; W11.XXXA Fall on and from ladder, initial encounter
CPT/HCPCS: 70450; 71260; 73030; 74177; 80053; 81001; 85025; 85610; 85730; 93005; 96374; 99285; J1885; Q9967

== ENCOUNTER 2018-03-31 19:51 | Inpatient (IN) | payer MEDICARE ==
[2018-03-31] MEDS ORDERED: Albuterol-Ipratrop 3 mg / 0.5 (3 ml) UD ONE ×3 (20:03→20:54)
[2018-03-31] MEDS ORDERED: Albuterol-Ipratrop 3 mg / 0.5 (3 ml) UD INH STA ×3 (20:05→20:55)
[2018-03-31] MEDS ORDERED: Morphine 4 MG/ML VIAL IV STA (20:30)
[2018-03-31 20:39] LABS: BASO # 0.2 K/uL (0.0-0.2); BASO % 1.5 % (0.0-2.0); EOS # 1.1 K/uL (0.0-0.7); EOS % 10.5 % (0.0-4.0); HEMOGLOBIN 15.5 g/dL (12.0-18.0); LYMPH # 1.4 K/uL (1.0-4.3); LYMPH % 13.4 % (20.0-40.0); MEAN CELL VOLUME 87.5 fL (80.0-94.0); MEAN CORPUSCULAR HEMOGLOBIN 28.9 pg (27.0-31.0); MEAN CORPUSCULAR HGB CONC 33.1 g/dL (33.0-37.0); MEAN PLATELET VOLUME 7.9 fL (7.2-11.7); MONO # 0.7 K/uL (0.0-0.8); MONO % 6.8 % (0.0-10.0); NEUT # 6.9 K/uL (1.8-7.0); NEUT % 67.8 % (50.0-75.0); RBC 5.36 Mil/uL (4.40-5.90); RED CELL DISTRIBUTION WIDTH 14.2 % (11.5-14.5); WHITE BLOOD COUNT 10.2 K/uL (4.8-10.8)
[2018-03-31] MEDS ORDERED: Morphine 4 MG/ML VIAL ONE (20:40)
[2018-03-31] MEDS ORDERED: Magnesium Sulfate 1 gm in D5W 1 GM/100 ML BAG IVPB ONE ×2 (20:41→21:15)
[2018-03-31] MEDS: Magnesium Sulfate 1 gm in D5W 1 GM/100 ML BAG IVPB SCH ×2 (20:46→21:40)
[2018-03-31 20:56] LABS: ALB/GLOB RATIO 1.6 (1.0-2.1); ALBUMIN 4.5 g/dL (3.5-5.0); ALT/SGPT 34 U/L (21-72); AST/SGOT 31 U/L (17-59); BLOOD UREA NITROGEN 25 mg/dL (9-20); CALCIUM 9.3 mg/dl (8.6-10.4); GFR NON-AFRICAN AMERICAN > 60
--- NOTE | 2018-03-31 21:52 | C.PDOC ---
History Of Present Illness 67 year old male with a history of PE (1 year ago, treated with 6 months of anticoagulation) was sent to the ED by [facility] [employer] [facility] Dr. Goff for evaluation of severe rib pain and ongoing shortness of breath for the last few weeks s/p fall. Patient notes he fell about 3 weeks ago sustaining clavicle and rib fractures. During visit patient notes having increased rib pain with movement/deep breaths and coughing but not able to express much phlegm. Denies fever, vomiting, other injuries, and any other associated symptoms. Time Seen by Provider: 03/31/18 20:02 Chief Complaint (Nursing): Shortness Of Breath History Per: Patient History/Exam Limitations: no limitations Onset/Duration Of Symptoms: Days Current Symptoms Are (Timing): Still Present Past Medical History Reviewed: Historical Data, Nursing Documentation, Vital Signs Vital Signs: Last Vital Signs Temp 98.2 F 03/31/18 19:55 Pulse 105 H 03/31/18 21:42 Resp 20 03/31/18 21:42 BP 154/59 H 03/31/18 21:42 Pulse Ox 95 03/31/18 21:42 - Medical History PMH: Anxiety, Asthma, COPD, HTN, Hypercholesterolemia, Hyperlipidemia, Kidney Stones, Pulmonary Embolism Surgical History: Hernia Repair - [facility] Procedures ASSISTANCE WITH RESPIRATORY VENTILATION, 24-96 HRS, CPAP (05/03/17) Family History: States: Unknown Family Hx - Social History Hx Tobacco Use: Yes (15 yr, 1 pack) Hx Alcohol Use: Yes Hx Substance Use: No - Immunization History Hx Tetanus Toxoid Vaccination: No Hx Influenza Vaccination: No Hx Pneumococcal Vaccination: No Review Of Systems Constitutional: Negative for: Fever, Other (other injuries.) Respiratory: Positive for: Shortness of Breath Gastrointestinal: Negative for: Vomiting Musculoskeletal: Positive for: Other (rib pain. ) Physical Exam - Physical Exam Appears: Well, Non-toxic, Other (moderate/severe distress secondary to pain.) Skin: Normal Color, Warm, Dry Head: Atraumatic, Normacephalic Eye(s): bilateral: Normal Inspection Oral Mucosa: Moist Neck: Normal ROM, Supple Chest: Symmetrical, No Deformity Cardiovascular: No Rhythm Regular (tachycardic.), No Murmur Respiratory: Decreased Breath Sounds, No Rales, No Rhonchi, Wheezing (mild, expiratory. ) Gastrointestinal/Abdominal: Normal Exam, Soft, No Tenderness Neurological/Psych: Oriented x3, Normal Speech ED Course And Treatment - Laboratory Results Result Diagrams: 03/31/18 20:36 03/31/18 20:36 ECG Rhythm: Sinus Tachycardia Rate From EC O2 Sat by Pulse Oximetry: 95 (RA) Pulse Ox Interpretation: Normal Medical Decision Making Medical Decision Making: Plan: --EKG --CT Chest w/o contrast. --Blood sent. --Blood culture. --Albuterol/Nebulizer treatment. --Morphine. --Solu-Medrol. Disposition - Disposition Disposition: HOSPITALIZED Disposition Time: 22:00 Condition: FAIR - Clinical Impression Clinical Impression: Fracture, ribs, COPD exacerbation, Pleuritic pain - Scribe Statement The provider has reviewed the documentation as recorded by the Scribe (Bhumi Spence) Provider Attestation: All medical record entries made by the Scribe were at my direction and personally dictated by me. I have reviewed the chart and agree that the record accurately reflects my personal performance of the history, physical exam, medical decision making, and the department course for this patient. I have also personally directed, reviewed, and agree with the discharge instructions and disposition.
[2018-04-01] MEDS: Albuterol-Ipratrop 3 mg / 0.5 (3 ml) UD INH SCH ×4 (01:19→19:28)
[2018-04-01] MEDS ORDERED: cefTRIAXone IV 1 gm in Dextros 1 GM in Dextrose 5% In Water 50 ML IVPB SCH (01:30)
[2018-04-01] MEDS: Oxycodone/Acetaminophen 5/325 mg Tab PO PRN ×3 (01:36→17:40)
[2018-04-01] MEDS: Azithromycin 500mg/250ML NS 500 MG/250 ML BAG IVPB SCH (02:34)
--- NOTE | 2018-04-01 10:30 | CT ---
Date of service: 03/31/2018 CT chest without IV contrast Indication: SOB - h/o multiple rib fractures 3 weeks ago Technique: Contiguous axial images were obtained through the chest without intravenous contrast enhancement. Sagittal and coronal reconstructions were generated and reviewed. This CT exam was performed using 1 or more of the following dose reduction techniques: Automated exposure control, adjustment of the MAA and/or kV according to patient size, and/or use of iterative reconstruction technique. Radiation dose (DLP): 1111.25 MGy-cm. Comparison: Chest x-ray performed 03/31/18, CT chest abdomen pelvis with IV contrast performed 03/07/18 Findings: 10 mm hypodense heterogeneous thyroid nodule, inferior left lower pole. The unenhanced mediastinal and hilar vascular structures appear grossly unremarkable. The heart appears within normal limits of size. Atherosclerotic calcifications of the aorta present. No focal consolidation. Small left-sided pleural effusion. No pneumothorax. 5 mm left lower lobe pulmonary nodule (series 3, image 80).. Limited visualization of the noncontrast upper abdomen: Cholelithiasis. Fatty atrophy of the pancreas. Diverticulum involving the 2nd portion of the duodenum. At least 2 tiny probable splenules. Left 4th through 8th rib fracture deformities. Right 7th through 10th rib fracture deformities. Impression: Small left pleural effusion. Bilateral rib fracture deformities re-identified. 5 mm left lower lobe pulmonary nodule. According to 2017 Fleischner criteria, the patient is low risk, no routine follow-up is recommended. If the patient is high risk, an optional CT at 12 months is recommended. 10 mm hypodense heterogeneous thyroid nodule, inferior left lower pole. Outpatient thyroid ultrasound may be considered for follow-up. Additional findings as above. Preliminary impression was provided by [employer]. Study marked for PA review.
--- NOTE | 2018-04-01 12:29 | RAD ---
Date of service: 03/31/2018 HISTORY: Shortness of breath COMPARISON: No prior. FINDINGS: LUNGS: Mild venous congestion. Mild patchy increased markings at the left lung base. PLEURA: No significant pleural effusion identified, no pneumothorax apparent. CARDIOVASCULAR: No aortic atherosclerotic calcification present Tortuous ectatic aorta. Mild cardiomegaly. OSSEOUS STRUCTURES: Chronic lower right rib osseous deformities. VISUALIZED UPPER ABDOMEN: Normal. OTHER FINDINGS: None. IMPRESSION: Mild venous congestion. Mild patchy increased markings at the left lung base. Tortuous ectatic aorta. Mild cardiomegaly. Chronic lower right rib osseous deformities.
--- NOTE | 2018-04-01 14:39 | CP.PCM.HP ---
Past Patient History - Infectious Disease Hx of Infectious Diseases: None - Past Medical History & Family History Past Medical History?: Yes - Past Social History Smoking Status: Former Smoker - CARDIAC Hx Hypercholesterolemia: Yes Hx Hypertension: Yes - PULMONARY Hx Asthma: Yes Hx Chronic Obstructive Pulmonary Disease (COPD): Yes Hx Pulmonary Embolism: Yes - NEUROLOGICAL Hx Neurological Disorder: No - HEENT Hx HEENT Problems: No - RENAL Hx Kidney Stones: Yes - ENDOCRINE/METABOLIC Hx Endocrine Disorders: No Hx Diabetes Mellitus Type 2: No - HEMATOLOGICAL/ONCOLOGICAL Hx Blood Transfusions: No - INTEGUMENTARY Hx Dermatological Problems: No - MUSCULOSKELETAL/RHEUMATOLOGICAL Hx Falls: Yes - GASTROINTESTINAL Hx Gastrointestinal Disorders: No - GENITOURINARY/GYNECOLOGICAL Hx Genitourinary Disorders: No - PSYCHIATRIC Hx Substance Use: No - SURGICAL HISTORY Hx Orthopedic Surgery: Yes (B/L SHOULDER, LEFT KNEE) Other/Comment: LEFT EAR, LEFT ARM MUSCLE, LITHROTRIPSY - ANESTHESIA Hx Anesthesia: Yes Hx Anesthesia Reactions: No Hx Malignant Hyperthermia: No Meds Allergies/Adverse Reactions: Allergies Allergy/AdvReac Type Severity Reaction Status Date / Time clindamycin Allergy Verified 03/31/18 19:57 Physical Exam - Constitutional Appears: Well - Head Exam Head Exam: ATRAUMATIC, NORMAL INSPECTION, NORMOCEPHALIC - Eye Exam Eye Exam: EOMI, Normal appearance, PERRL Pupil Exam: NORMAL ACCOMODATION, PERRL - ENT Exam ENT Exam: Mucous Membranes Moist, Normal Exam - Neck Exam Neck exam: Positive for: Normal Inspection - Respiratory Exam Respiratory Exam: Decreased Breath Sounds - Cardiovascular Exam Cardiovascular Exam: REGULAR RHYTHM, +S1, +S2 - GI/Abdominal Exam GI & Abdominal Exam: Diminished Bowel Sounds, Soft - Rectal Exam Rectal Exam: Deferred Results - Vital Signs Recent Vital Signs: Last Vital Signs Temp 97.6 F 04/01/18 08:16 Pulse 105 H 04/01/18 08:16 Resp 20 04/01/18 08:16 BP 147/89 04/01/18 08:16 Pulse Ox 95 04/01/18 08:16 - Labs Result Diagrams: 03/31/18 20:36 03/31/18 20:36 Labs: Laboratory Results - last 24 hr 03/31/18 03/31/18 03/31/18 20:36 20:36 21:06 WBC 10.2 RBC 5.36 Hgb 15.5 Hct 46.9 MCV 87.5 MCH 28.9 MCHC 33.1 RDW 14.2 Plt Count 310 MPV 7.9 Neut % (Auto) 67.8 Lymph % (Auto) 13.4 L [place] % (Auto) 6.8 Eos % (Auto) 10.5 H Baso % (Auto) 1.5 Neut # (Auto) 6.9 Lymph # (Auto) 1.4 [place] # (Auto) 0.7 Eos # (Auto) 1.1 H Baso # (Auto) 0.2 PT 11.0 INR 1.0 APTT 33 Sodium 146 Potassium 4.0 Chloride 104 Carbon Dioxide 27 Anion Gap 19 BUN 25 H Creatinine 1.1 Est GFR ( Amer) > 60 Est GFR (Non-Af Amer) > 60 Random Glucose 118 H Calcium 9.3 Total Bilirubin 0.5 AST 31 ALT 34 Alkaline Phosphatase 112 Troponin I 0.0190 Total Protein 7.2 Albumin 4.5 Globulin 2.7 Albumin/Globulin Ratio 1.6
--- NOTE | 2018-04-01 16:29 | CP.PCM.CON ---
History of Present Illness - History of Present Illness History of Present Illness: Surgery Consult for Dr. Giles Pt is a 67 y/o male, PMH of PE (provoked s/p sx(05/26), treated w/ Eliyomairais x6mo), COPD, asthma, HTN, HLD, who presented to the ED, at the request of Dr. Glasgow, on 03/31/18 with Left sided rib pain and increasing SOB. As per pt, the pain is located on the left, mid axillary upper ribcage. Pt reports he sustained fractures on 02/25 s/p fall on a pool deck, hitting the left side of his head, left ribcage, and left lower extremity. The pain has been constant since his fall, with intermittent episodes of acute pain that he describes feeling like a "hot poker." He rates these acute pain episodes at a 10/10 and a constant pain level of 4/10. He states that the pain is alleviated slightly with pain medication (codeine) and the use of his abdominal binder, and made worse with deep inhalation and movement. In addition to his acute rib fractures, the patient has several unhealed rib fractures due to "coughing attacks" and a syncopal episode he had in may 2017 following shoulder surgery. Along with his left sided rib pain, he reports SOB, cough with copious phlegm production (clear) and chronic constipation. He denies fever, headache, chest pain, palpitations, diarrhea, nausea, vomiting, or dysuria. PMH: PE, HTN, COPD, asthma, HLD, kidney stones, anxiety PSH: hernia repair x 2, b/l rotator cuff, Left bicep muscle tear repair Allergies: clindamycin Social: former smoker, social alcohol Review of Systems - Constitutional Constitutional: absent: Chills, Fever - Cardiovascular Cardiovascular: absent: Chest Pain, Palpitations - Respiratory Respiratory: Cough, Dyspnea, Wheezing, Pain on Inspiration, Excessive Mucous Production, Pain with Coughing - Gastrointestinal Gastrointestinal: Constipation. absent: Diarrhea, Nausea, Vomiting - Genitourinary Genitourinary: absent: Dysuria - Musculoskeletal Musculoskeletal: Limited Range of Motion Additional comments: limited ROM secondary to pain in Left ribcage - Neurological Neurological: absent: Headaches Past Patient History - Infectious Disease Hx of Infectious Diseases: None - Past Medical History & Family History Past Medical History?: Yes - Past Social History Smoking Status: Former Smoker - CARDIAC Hx Hypercholesterolemia: Yes Hx Hypertension: Yes - PULMONARY Hx Asthma: Yes Hx Chronic Obstructive Pulmonary Disease (COPD): Yes Hx Pulmonary Embolism: Yes - NEUROLOGICAL Hx Neurological Disorder: No - HEENT Hx HEENT Problems: No - RENAL Hx Kidney Stones: Yes - ENDOCRINE/METABOLIC Hx Endocrine Disorders: No Hx Diabetes Mellitus Type 2: No - HEMATOLOGICAL/ONCOLOGICAL Hx Blood Transfusions: No - INTEGUMENTARY Hx Dermatological Problems: No - MUSCULOSKELETAL/RHEUMATOLOGICAL Hx Falls: Yes - GASTROINTESTINAL Hx Gastrointestinal Disorders: No - GENITOURINARY/GYNECOLOGICAL Hx Genitourinary Disorders: No - PSYCHIATRIC Hx Substance Use: No - SURGICAL HISTORY Hx Orthopedic Surgery: Yes (B/L SHOULDER, LEFT KNEE) Other/Comment: LEFT EAR, LEFT ARM MUSCLE, LITHROTRIPSY - ANESTHESIA Hx Anesthesia: Yes Hx Anesthesia Reactions: No Hx Malignant Hyperthermia: No Meds Allergies/Adverse Reactions: Allergies Allergy/AdvReac Type Severity Reaction Status Date / Time clindamycin Allergy Verified 03/31/18 19:57 - Medications Medications: Current Medications Albuterol/Ipratropium (Duoneb 3 Mg/0.5 Mg (3 Ml) Ud) 3 ml INH RQ6 [facility] Last Admin: 04/01/18 14:31 Dose: 3 ml Aspirin (Ecotrin) 81 mg PO DAILY [facility] Last Admin: 04/01/18 10:42 Dose: 81 mg Doxazosin Mesylate (Cardura) 2 mg PO DAILY [facility] Last Admin: 04/01/18 10:42 Dose: 2 mg Hydrochlorothiazide (Microzide) 12.5 mg PO DAILY [facility] Last Admin: 04/01/18 10:42 Dose: 12.5 mg Azithromycin (Zithromax 500mg In Ns Addvantage) 500 mg in 250 mls @ 167 mls/hr IVPB Q24H [facility]; Protocol Stop: 04/05/18 03:00 Last Admin: 04/01/18 02:34 Dose: 167 mls/hr Ceftriaxone Sodium (Rocephin Iv 1 Gm Duplex) 50 mls @ 50 mls/30 min IVPB Q24H [facility]; Protocol Influenza Virus Vaccine (Fluzone Quad [id number]) 60 mcg IM .ONCE ONE Stop: 04/03/18 10:01 Losartan Potassium (Cozaar) 100 mg PO DAILY [facility] Last Admin: 04/01/18 10:42 Dose: 100 mg Oxycodone/Acetaminophen (Percocet 5/325 Mg Tab) 1 tab PO Q6 PRN PRN Reason: Pain, moderate (4-7) Stop: 04/04/18 00:50 Last Admin: 04/01/18 10:45 Dose: 1 tab Rosuvastatin Calcium (Crestor) 10 mg PO HS [facility] Sertraline HCl (Zoloft) 100 mg PO DAILY [facility] Last Admin: 04/01/18 10:42 Dose: 100 mg Physical Exam - Constitutional Appears: Non-toxic, No Acute Distress - Head Exam Head Exam: ATRAUMATIC, NORMAL INSPECTION, NORMOCEPHALIC - Eye Exam Eye Exam: EOMI, Normal appearance - ENT Exam ENT Exam: Mucous Membranes Moist, Normal Exam - Neck Exam Neck exam: Positive for: Normal Inspection - Respiratory Exam Respiratory Exam: Chest Wall Tenderness (left mid-axillary upper ribs), Decr eased Breath Sounds, Wheezes (diffuse expiratory wheeze b/l) - Cardiovascular Exam Cardiovascular Exam: Tachycardia, REGULAR RHYTHM - GI/Abdominal Exam GI & Abdominal Exam: Soft. absent: Tenderness - Neurological Exam Neurological exam: Alert, Oriented x3 - Psychiatric Exam Psychiatric exam: Normal Affect, Normal Mood - Skin Skin Exam: Dry, Intact, Normal Color, Warm Results - Vital Signs Recent Vital Signs: Last Vital Signs Temp 98.3 F 04/01/18 15:00 Pulse 115 H 04/01/18 15:00 Resp 20 04/01/18 15:00 BP 121/83 04/01/18 15:00 Pulse Ox 96 04/01/18 15:00 - Labs Result Diagrams: 03/31/18 20:36 03/31/18 20:36 Labs: Laboratory Results - last 24 hr 03/31/18 03/31/18 03/31/18 20:36 20:36 21:06 WBC 10.2 RBC 5.36 Hgb 15.5 Hct 46.9 MCV 87.5 MCH 28.9 MCHC 33.1 RDW 14.2 Plt Count 310 MPV 7.9 Neut % (Auto) 67.8 Lymph % (Auto) 13.4 L [place] % (Auto) 6.8 Eos % (Auto) 10.5 H Baso % (Auto) 1.5 Neut # (Auto) 6.9 Lymph # (Auto) 1.4 [place] # (Auto) 0.7 Eos # (Auto) 1.1 H Baso # (Auto) 0.2 PT 11.0 INR 1.0 APTT 33 Sodium 146 Potassium 4.0 Chloride 104 Carbon Dioxide 27 Anion Gap 19 BUN 25 H Creatinine 1.1 Est GFR ( Amer) > 60 Est GFR (Non-Af Amer) > 60 Random Glucose 118 H Calcium 9.3 Total Bilirubin 0.5 AST 31 ALT 34 Alkaline Phosphatase 112 Troponin I 0.0190 Total Protein 7.2 Albumin 4.5 Globulin 2.7 Albumin/Globulin Ratio 1.6 Assessment & Plan - Assessment and Plan (Free Text) Assessment: 67 y/o male with nonhealing fractures of left lateral 4-5th ribs Plan: - OR for rib plating scheduled for Saturday04/04/18 - continue pain medication as needed for pain management - medical management per primary - recommend DVT ppx while awaiting surgery - medical optimization per primary - case discussed and agreed with Dr. Mario Miller PGY-1
--- NOTE | 2018-04-01 17:24 | CP.PCM.CON ---
History of Present Illness - History of Present Illness History of Present Illness: Patient is a 67-year-old male with PMHx of PE, COPD, HTN, HLD, and nephrolithasis who was admitted for clavicle fracture, and multiple rib fractures s/p fall 3 weeks ago. Patient states that he fell from a ladder by his pool 3 weeks ago, and ever since then he has had left sided chest pain in anterior, lateral, and posterior regions. He admits to excruciating pain with cough, and deep breaths and rates the pain at 10+/10. He states that the pain is there at all times and rates it at 4/10. Patient admits to cough with copious clear sputum production, which he states he has been suffering from for months. Denies any fevers, chills, headaches, shortness of breath, abdominal pain, leg swelling. PMD: Dr. Cheng PMHx: COPD, HTN, hyperlipidemia, nephrolithiasis PSHx: hernia repair x2 Allergies: clindamycin Social Hx: Former smoker. Review of Systems - Review of Systems All systems: reviewed and no additional remarkable complaints except (shortness of breath, chest pain, cough) Past Patient History - Infectious Disease Hx of Infectious Diseases: None - Past Medical History & Family History Past Medical History?: Yes - Past Social History Smoking Status: Former Smoker - CARDIAC Hx Hypercholesterolemia: Yes Hx Hypertension: Yes - PULMONARY Hx Asthma: Yes Hx Chronic Obstructive Pulmonary Disease (COPD): Yes Hx Pulmonary Embolism: Yes - NEUROLOGICAL Hx Neurological Disorder: No - HEENT Hx HEENT Problems: No - RENAL Hx Kidney Stones: Yes - ENDOCRINE/METABOLIC Hx Endocrine Disorders: No Hx Diabetes Mellitus Type 2: No - HEMATOLOGICAL/ONCOLOGICAL Hx Blood Transfusions: No - INTEGUMENTARY Hx Dermatological Problems: No - MUSCULOSKELETAL/RHEUMATOLOGICAL Hx Falls: Yes - GASTROINTESTINAL Hx Gastrointestinal Disorders: No - GENITOURINARY/GYNECOLOGICAL Hx Genitourinary Disorders: No - PSYCHIATRIC Hx Substance Use: No - SURGICAL HISTORY Hx Orthopedic Surgery: Yes (B/L SHOULDER, LEFT KNEE) Other/Comment: LEFT EAR, LEFT ARM MUSCLE, LITHROTRIPSY - ANESTHESIA Hx Anesthesia: Yes Hx Anesthesia Reactions: No Hx Malignant Hyperthermia: No Meds Allergies/Adverse Reactions: Allergies Allergy/AdvReac Type Severity Reaction Status Date / Time clindamycin Allergy Verified 03/31/18 19:57 - Medications Medications: Current Medications Albuterol/Ipratropium (Duoneb 3 Mg/0.5 Mg (3 Ml) Ud) 3 ml INH RQ6 [facility] Last Admin: 04/01/18 14:31 Dose: 3 ml Aspirin (Ecotrin) 81 mg PO DAILY [facility] Last Admin: 04/01/18 10:42 Dose: 81 mg Doxazosin Mesylate (Cardura) 2 mg PO DAILY [facility] Last Admin: 04/01/18 10:42 Dose: 2 mg Hydrochlorothiazide (Microzide) 12.5 mg PO DAILY [facility] Last Admin: 04/01/18 10:42 Dose: 12.5 mg Azithromycin (Zithromax 500mg In Ns Addvantage) 500 mg in 250 mls @ 167 mls/hr IVPB Q24H [facility]; Protocol Stop: 04/05/18 03:00 Last Admin: 04/01/18 02:34 Dose: 167 mls/hr Ceftriaxone Sodium (Rocephin Iv 1 Gm Duplex) 50 mls @ 50 mls/30 min IVPB Q24H [facility]; Protocol Influenza Virus Vaccine (Fluzone Quad [id number]) 60 mcg IM .ONCE ONE Stop: 04/03/18 10:01 Losartan Potassium (Cozaar) 100 mg PO DAILY [facility] Last Admin: 04/01/18 10:42 Dose: 100 mg Oxycodone/Acetaminophen (Percocet 5/325 Mg Tab) 1 tab PO Q6 PRN PRN Reason: Pain, moderate (4-7) Stop: 04/04/18 00:50 Last Admin: 04/01/18 10:45 Dose: 1 tab Rosuvastatin Calcium (Crestor) 10 mg PO [facility] Sertraline HCl (Zoloft) 100 mg PO DAILY [facility] Last Admin: 04/01/18 10:42 Dose: 100 mg Physical Exam - Head Exam Head Exam: ATRAUMATIC, NORMOCEPHALIC - Eye Exam Eye Exam: Normal appearance - Neck Exam Neck exam: Positive for: Normal Inspection - Respiratory Exam Respiratory Exam: Decreased Breath Sounds - Cardiovascular Exam Cardiovascular Exam: REGULAR RHYTHM - GI/Abdominal Exam GI & Abdominal Exam: Normal Bowel Sounds - Extremities Exam Extremities exam: Positive for: pedal edema Results - Vital Signs Recent Vital Signs: Last Vital Signs Temp 98.3 F 04/01/18 15:00 Pulse 115 H 04/01/18 15:00 Resp 20 04/01/18 15:00 BP 121/83 04/01/18 15:00 Pulse Ox 96 04/01/18 15:00 - Labs Result Diagrams: 03/31/18 20:36 03/31/18 20:36 Labs: Laboratory Results - last 24 hr 03/31/18 03/31/18 03/31/18 20:36 20:36 21:06 WBC 10.2 RBC 5.36 Hgb 15.5 Hct 46.9 MCV 87.5 MCH 28.9 MCHC 33.1 RDW 14.2 Plt Count 310 MPV 7.9 Neut % (Auto) 67.8 Lymph % (Auto) 13.4 L [place] % (Auto) 6.8 Eos % (Auto) 10.5 H Baso % (Auto) 1.5 Neut # (Auto) 6.9 Lymph # (Auto) 1.4 [place] # (Auto) 0.7 Eos # (Auto) 1.1 H Baso # (Auto) 0.2 PT 11.0 INR 1.0 APTT 33 Sodium 146 Potassium 4.0 Chloride 104 Carbon Dioxide 27 Anion Gap 19 BUN 25 H Creatinine 1.1 Est GFR ( Amer) > 60 Est GFR (Non-Af Amer) > 60 Random Glucose 118 H Calcium 9.3 Total Bilirubin 0.5 AST 31 ALT 34 Alkaline Phosphatase 112 Troponin I 0.0190 Total Protein 7.2 Albumin 4.5 Globulin 2.7 Albumin/Globulin Ratio 1.6
[2018-04-02] MEDS: cefTRIAXone IV 1 gm in Dextros 50 ML IVPB SCH (02:00)
[2018-04-02] MEDS: Albuterol-Ipratrop 3 mg / 0.5 (3 ml) UD INH SCH ×4 (02:45→19:26)
[2018-04-02] MEDS: Azithromycin 500mg/250ML NS 500 MG/250 ML BAG IVPB SCH (03:04)
[2018-04-02] MEDS: Oxycodone/Acetaminophen 5/325 mg Tab PO PRN (08:13)
--- NOTE | 2018-04-02 11:13 | CP.PCM.PN ---
Subjective - Date & Time of Evaluation Date of Evaluation: 04/02/18 Time of Evaluation: 13:51 - Subjective Subjective: 67 y/o male with fractures on left lateral 4-5th rib was seen and examined at bedside today. Patient is doing well. Patient states he still has pain during movement and respiration. He states he has trouble sleeping due to pain. Patient complains of slight shortness of breathe due to shallow breathing 2/2 to pain. Patient denies fever, chills, nausea, or vomiting. Objective - Vital Signs/Intake and Output Vital Signs (last 24 hours): Temp Pulse Resp BP Pulse Ox 98 F 95 H 20 148/72 94 L 04/02/18 07:00 04/02/18 07:20 04/02/18 07:00 04/02/18 07:00 04/02/18 07:00 Intake and Output: 04/02/18 04/02/18 06:59 18:59 Intake Total 360 Output Total 1 Balance 359 - Medications Medications: Current Medications Albuterol/Ipratropium (Duoneb 3 Mg/0.5 Mg (3 Ml) Ud) 3 ml INH RQ6 [facility] Last Admin: 04/02/18 07:20 Dose: 3 ml Aspirin (Ecotrin) 81 mg PO DAILY [facility] Last Admin: 04/02/18 09:07 Dose: Not Given Doxazosin Mesylate (Cardura) 2 mg PO DAILY [facility] Last Admin: 04/02/18 10:16 Dose: 2 mg Hydrochlorothiazide (Microzide) 12.5 mg PO DAILY [facility] Last Admin: 04/02/18 09:06 Dose: 12.5 mg Azithromycin (Zithromax 500mg In Ns Addvantage) 500 mg in 250 mls @ 167 mls/hr IVPB Q24H [facility]; Protocol Stop: 04/05/18 03:00 Last Admin: 04/02/18 03:04 Dose: 167 mls/hr Ceftriaxone Sodium (Rocephin Iv 1 Gm Duplex) 50 mls @ 50 mls/30 min IVPB Q24H [facility]; Protocol Last Admin: 04/02/18 02:00 Dose: 50 mls/30 min Influenza Virus Vaccine (Fluzone Quad 2281-5715) 60 mcg IM .ONCE ONE Stop: 04/03/18 10:01 Lactulose (Enulose) 20 gm PO HS PRN PRN Reason: Constipation Last Admin: 04/01/18 21:48 Dose: 20 gm Losartan Potassium (Cozaar) 100 mg PO DAILY [facility] Last Admin: 04/02/18 09:06 Dose: 100 mg Oxycodone/Acetaminophen (Percocet 5/325 Mg Tab) 1 tab PO Q6 PRN PRN Reason: Pain, moderate (4-7) Stop: 04/04/18 00:50 Last Admin: 04/02/18 08:13 Dose: 1 tab Rosuvastatin Calcium (Crestor) 10 mg PO HS [facility] Last Admin: 04/01/18 21:48 Dose: 10 mg Sertraline HCl (Zoloft) 100 mg PO DAILY [facility] Last Admin: 04/02/18 09:06 Dose: 100 mg - Labs Labs: 03/31/18 20:36 03/31/18 20:36 PT 11.0 SECONDS (9.7-12.2) 03/31/18 21:06 INR 1.0 03/31/18 21:06 APTT 33 SECONDS (21-34) 03/31/18 21:06 - Constitutional Appears: Well, Non-toxic, No Acute Distress - Head Exam Head Exam: ATRAUMATIC, NORMAL INSPECTION - Eye Exam Eye Exam: EOMI, Normal appearance - ENT Exam ENT Exam: Mucous Membranes Moist, Normal Exam - Neck Exam Neck Exam: Full ROM, Normal Inspection - Respiratory Exam Respiratory Exam: Chest Wall Tenderness, Wheezes. absent: Decreased Breath Sounds, Rales, Respiratory Distress, Stridor - Cardiovascular Exam Cardiovascular Exam: REGULAR RHYTHM, +S1, +S2 - GI/Abdominal Exam GI & Abdominal Exam: Soft, Normal Bowel Sounds. absent: Guarding, Rigid, Tenderness, Rebound - Extremities Exam Extremities Exam: Full ROM, Normal Inspection. absent: Calf Tenderness, Tenderness - Back Exam Back Exam: NORMAL INSPECTION. absent: tenderness - Neurological Exam Neurological Exam: Alert, Awake, Oriented x3 - Psychiatric Exam Psychiatric exam: Normal Affect, Normal Mood - Skin Skin Exam: Dry, Normal Color, Warm Assessment and Plan - Assessment and Plan (Free Text) Assessment: 67 y/o male with non healing fractures of left lateral 4-5th ribs Plan: - OR for rib plating scheduled for Saturday04/04/2018 - continue pain medications PRN - Medical management per primary - DVT ppx Will discuss with Dr. Mario Miller PGY-1
--- NOTE | 2018-04-02 16:32 | CP.PCM.PN ---
Subjective - Date & Time of Evaluation Date of Evaluation: 04/02/18 Time of Evaluation: 14:30 - Subjective Subjective: Patient seen and examined at bedside. Patient complains of left sided chest pain, and pain in left axillary region. Rates it at 10/10. He states that coughing and deep breaths exacerbate pain. States Percocet has been helping with his pain. Patient admits to cough and copious clear sputum production. Denies any fevers, chills, headaches, shortness of breath, or abdominal pain. Plan: d/c Percocet; start Dilaudid 1 mg IVP Q6H PRN for pain; start Codeine 15 mg PO Q6 PRN for cough Objective - Vital Signs/Intake and Output Vital Signs (last 24 hours): Temp Pulse Resp BP Pulse Ox 97.9 F 99 H 20 142/74 95 04/02/18 15:00 04/02/18 15:00 04/02/18 15:00 04/02/18 15:00 04/02/18 15:00 Intake and Output: 04/02/18 04/02/18 06:59 18:59 Intake Total 360 380 Output Total 1 Balance 359 380 - Medications Medications: Current Medications Albuterol/Ipratropium (Duoneb 3 Mg/0.5 Mg (3 Ml) Ud) 3 ml INH RQ6 [facility] Last Admin: 04/02/18 14:00 Dose: 3 ml Aspirin (Ecotrin) 81 mg PO DAILY [facility] Last Admin: 04/02/18 09:07 Dose: Not Given Codeine Sulfate (Codeine) 15 mg PO Q6 PRN PRN Reason: Cough Doxazosin Mesylate (Cardura) 2 mg PO DAILY [facility] Last Admin: 04/02/18 10:16 Dose: 2 mg Hydrochlorothiazide (Microzide) 12.5 mg PO DAILY [facility] Last Admin: 04/02/18 09:06 Dose: 12.5 mg Hydromorphone HCl (Dilaudid) 1 mg IVP Q6H PRN PRN Reason: Pain, severe (8-10) Azithromycin (Zithromax 500mg In Ns Addvantage) 500 mg in 250 mls @ 167 mls/hr IVPB Q24H [facility]; Protocol Stop: 04/05/18 03:00 Last Admin: 04/02/18 03:04 Dose: 167 mls/hr Ceftriaxone Sodium (Rocephin Iv 1 Gm Duplex) 50 mls @ 50 mls/30 min IVPB Q24H [facility]; Protocol Last Admin: 04/02/18 02:00 Dose: 50 mls/30 min Influenza Virus Vaccine (Fluzone Quad [id number]) 60 mcg IM .ONCE ONE Stop: 04/03/18 10:01 Lactulose (Enulose) 20 gm PO HS PRN PRN Reason: Constipation Last Admin: 04/01/18 21:48 Dose: 20 gm Losartan Potassium (Cozaar) 100 mg PO DAILY [facility] Last Admin: 04/02/18 09:06 Dose: 100 mg Rosuvastatin Calcium (Crestor) 10 mg PO HS [facility] Last Admin: 04/01/18 21:48 Dose: 10 mg Sertraline HCl (Zoloft) 100 mg PO DAILY [facility] Last Admin: 04/02/18 09:06 Dose: 100 mg - Labs Labs: 03/31/18 20:36 03/31/18 20:36 PT 11.0 SECONDS (9.7-12.2) 03/31/18 21:06 INR 1.0 03/31/18 21:06 APTT 33 SECONDS (21-34) 03/31/18 21:06
[2018-04-02] MEDS: HYDROmorphone 1 mg/ml ISec IVP PRN (18:23)
--- NOTE | 2018-04-02 18:26 | CP.PCM.PN ---
Subjective - Date & Time of Evaluation Date of Evaluation: 04/02/18 Time of Evaluation: 12:15 - Subjective Subjective: clinically same Objective - Vital Signs/Intake and Output Vital Signs (last 24 hours): Temp Pulse Resp BP Pulse Ox 98.3 F 90 23 138/76 94 L 04/02/18 18:16 04/02/18 18:16 04/02/18 18:16 04/02/18 18:16 04/02/18 18:16 Intake and Output: 04/02/18 04/02/18 06:59 18:59 Intake Total 360 380 Output Total 1 Balance 359 380 - Medications Medications: Current Medications Albuterol/Ipratropium (Duoneb 3 Mg/0.5 Mg (3 Ml) Ud) 3 ml INH RQ6 [facility] Last Admin: 04/02/18 14:00 Dose: 3 ml Aspirin (Ecotrin) 81 mg PO DAILY [facility] Last Admin: 04/02/18 09:07 Dose: Not Given Codeine Sulfate (Codeine) 15 mg PO Q6 PRN PRN Reason: Cough Doxazosin Mesylate (Cardura) 2 mg PO DAILY [facility] Last Admin: 04/02/18 10:16 Dose: 2 mg Hydrochlorothiazide (Microzide) 12.5 mg PO DAILY [facility] Last Admin: 04/02/18 09:06 Dose: 12.5 mg Hydromorphone HCl (Dilaudid) 1 mg IVP Q6H PRN PRN Reason: Pain, severe (8-10) Last Admin: 04/02/18 18:23 Dose: 1 mg Azithromycin (Zithromax 500mg In Ns Addvantage) 500 mg in 250 mls @ 167 mls/hr IVPB Q24H [facility]; Protocol Stop: 04/05/18 03:00 Last Admin: 04/02/18 03:04 Dose: 167 mls/hr Ceftriaxone Sodium (Rocephin Iv 1 Gm Duplex) 50 mls @ 50 mls/30 min IVPB Q24H [facility]; Protocol Last Admin: 04/02/18 02:00 Dose: 50 mls/30 min Influenza Virus Vaccine (Fluzone Quad [id number]) 60 mcg IM .ONCE ONE Stop: 04/03/18 10:01 Lactulose (Enulose) 20 gm PO HS PRN PRN Reason: Constipation Last Admin: 10/23/18 21:48 Dose: 20 gm Losartan Potassium (Cozaar) 100 mg PO DAILY [facility] Last Admin: 04/02/18 09:06 Dose: 100 mg Rosuvastatin Calcium (Crestor) 10 mg PO HS [facility] Last Admin: 04/01/18 21:48 Dose: 10 mg Sertraline HCl (Zoloft) 100 mg PO DAILY [facility] Last Admin: 04/02/18 09:06 Dose: 100 mg - Labs Labs: 03/31/18 20:36 03/31/18 20:36 PT 11.0 SECONDS (9.7-12.2) 03/31/18 21:06 INR 1.0 03/31/18 21:06 APTT 33 SECONDS (21-34) 03/31/18 21:06 - Constitutional Appears: Well - Head Exam Head Exam: ATRAUMATIC, NORMAL INSPECTION, NORMOCEPHALIC - Eye Exam Eye Exam: EOMI, Normal appearance, PERRL Pupil Exam: NORMAL ACCOMODATION, PERRL - ENT Exam ENT Exam: Mucous Membranes Moist, Normal Exam - Neck Exam Neck Exam: Full ROM, Normal Inspection. absent: Lymphadenopathy - Respiratory Exam Respiratory Exam: Decreased Breath Sounds - Cardiovascular Exam Cardiovascular Exam: REGULAR RHYTHM, +S1, +S2 - GI/Abdominal Exam GI & Abdominal Exam: Soft, Diminished Bowel Sounds - Rectal Exam Rectal Exam: Deferred
[2018-04-02] MEDS ORDERED: Albuterol-Ipratrop 3 mg / 0.5 (3 ml) UD INH ONE (23:39)
--- NOTE | 2018-04-02 23:54 | CARD ---
APPROVED REPORT Date of service: 03/31/2018 EKG Measurement Heart [id number] <Conclusion> Sinus tachycardia Cannot rule out Inferior infarct, age undetermined Abnormal ECG
[2018-04-03] MEDS: HYDROmorphone 1 mg/ml ISec IVP PRN ×3 (00:20→22:12)
[2018-04-03] MEDS: Albuterol-Ipratrop 3 mg / 0.5 (3 ml) UD INH SCH ×4 (01:20→19:18)
[2018-04-03] MEDS: cefTRIAXone IV 1 gm in Dextros 50 ML IVPB SCH (02:19)
[2018-04-03] MEDS: Azithromycin 500mg/250ML NS 500 MG/250 ML BAG IVPB SCH (02:23)
--- NOTE | 2018-04-03 08:16 | CP.PCM.PN ---
Subjective - Date & Time of Evaluation Date of Evaluation: 04/03/18 Time of Evaluation: 06:50 - Subjective Subjective: Cardiothoracic consult note for Dr. Martin Pt seen and examined this AM. No adverse events event overnight. Pt complains of continued chest pain in the left lateral ribs with breathing and some wheezing, but no fevers, chills, or any other symptoms Objective - Vital Signs/Intake and Output Vital Signs (last 24 hours): Temp Pulse Resp BP Pulse Ox 98.3 F 90 20 156/76 H 94 L 04/03/18 00:15 04/03/18 00:15 04/03/18 00:15 04/03/18 00:15 04/02/18 23:15 Intake and Output: 04/03/18 04/03/18 06:59 18:59 Intake Total 360 Balance 360 - Medications Medications: Current Medications Albuterol/Ipratropium (Duoneb 3 Mg/0.5 Mg (3 Ml) Ud) 3 ml INH RQ6 [facility] Last Admin: 04/03/18 07:05 Dose: 3 ml Aspirin (Ecotrin) 81 mg PO DAILY [facility] Last Admin: 04/02/18 09:07 Dose: Not Given Codeine Sulfate (Codeine) 15 mg PO Q6 PRN PRN Reason: Cough Doxazosin Mesylate (Cardura) 2 mg PO DAILY [facility] Last Admin: 04/02/18 10:16 Dose: 2 mg Hydrochlorothiazide (Microzide) 12.5 mg PO DAILY [facility] Last Admin: 04/02/18 09:06 Dose: 12.5 mg Hydromorphone HCl (Dilaudid) 1 mg IVP Q6H PRN PRN Reason: Pain, severe (8-10) Last Admin: 04/03/18 06:17 Dose: 1 mg Azithromycin (Zithromax 500mg In Ns Addvantage) 500 mg in 250 mls @ 167 mls/hr IVPB Q24H [facility]; Protocol Stop: 04/05/18 03:00 Last Admin: 04/03/18 02:23 Dose: 167 mls/hr Ceftriaxone Sodium (Rocephin Iv 1 Gm Duplex) 50 mls @ 50 mls/30 min IVPB Q24H [facility]; Protocol Last Admin: 04/03/18 02:19 Dose: 50 mls/30 min Influenza Virus Vaccine (Fluzone Quad [id number]) 60 mcg IM .ONCE ONE Stop: 04/03/18 10:01 Lactulose (Enulose) 20 gm PO HS PRN PRN Reason: Constipation Last Admin: 04/01/18 21:48 Dose: 20 gm Losartan Potassium (Cozaar) 100 mg PO DAILY [facility] Last Admin: 04/02/18 09:06 Dose: 100 mg Rosuvastatin Calcium (Crestor) 10 mg PO HS [facility] Last Admin: 04/02/18 21:13 Dose: 10 mg Sertraline HCl (Zoloft) 100 mg PO DAILY [facility] Last Admin: 04/02/18 09:06 Dose: 100 mg - Labs Labs: 03/31/18 20:36 03/31/18 20:36 PT 11.0 SECONDS (9.7-12.2) 03/31/18 21:06 INR 1.0 03/31/18 21:06 APTT 33 SECONDS (21-34) 03/31/18 21:06 Assessment and Plan - Assessment and Plan (Free Text) Assessment: 67M with non-healing rib fractures Plan: OR tomorrow for rib plating PRN pain medication Opitmization of respiratory status per pulmonary NPO after midnight Discussed with Dr. Mario Gimenez, PGY2
[2018-04-03] MEDS: Lidocaine 5% Patch TD SCH (09:08)
[2018-04-03] MEDS ORDERED: Pneumococcal 23-Valent Vaccine IM ONE (10:00)
[2018-04-03] MEDS ORDERED: Influenza Vaccine 60 MCG/0.5 ML SYR (3 yr & up) IM ONE (10:00)
[2018-04-03 11:17] LABS: BASO # 0.1 K/uL (0.0-0.2); BASO % 1.1 % (0.0-2.0); EOS # 1.1 K/uL (0.0-0.7); EOS % 11.6 % (0.0-4.0); HEMOGLOBIN 14.1 g/dL (12.0-18.0); LYMPH % 10.5 % (20.0-40.0); MEAN CELL VOLUME 88.4 fL (80.0-94.0); MEAN PLATELET VOLUME 7.8 fL (7.2-11.7); MONO # 0.7 K/uL (0.0-0.8); MONO % 7.1 % (0.0-10.0); NEUT # 6.5 K/uL (1.8-7.0); NEUT % 69.7 % (50.0-75.0); RBC 4.68 Mil/uL (4.40-5.90); RED CELL DISTRIBUTION WIDTH 14.2 % (11.5-14.5); WHITE BLOOD COUNT 9.3 K/uL (4.8-10.8)
[2018-04-03 11:38] LABS: ALB/GLOB RATIO 1.7 (1.0-2.1); ALT/SGPT 32 U/L (21-72); AST/SGOT 34 U/L (17-59); BLOOD UREA NITROGEN 20 mg/dL (9-20); CALCIUM 8.8 mg/dl (8.6-10.4); GFR NON-AFRICAN AMERICAN > 60
--- NOTE | 2018-04-03 17:24 | CP.PCM.PN ---
Subjective - Date & Time of Evaluation Date of Evaluation: 04/03/18 Time of Evaluation: 10:45 - Subjective Subjective: Patient seen and examined. Patient states that his left axillary pain is controlled very well with Dilaudid. States he was able to sleep comfortably last night. Patient continues to complain of cough, and clear sputum production. Patient aware of going to surgery tomorrow in the AM. Denies any fevers, chills, shortness of breath, or leg swelling Objective - Vital Signs/Intake and Output Vital Signs (last 24 hours): Temp Pulse Resp BP Pulse Ox 97.9 F 77 20 115/64 95 04/03/18 15:00 04/03/18 16:00 04/03/18 15:00 04/03/18 15:00 04/03/18 15:00 Intake and Output: 04/03/18 04/03/18 06:59 18:59 Intake Total 360 480 Output Total 1000 Balance 360 -520 - Medications Medications: Current Medications Albuterol/Ipratropium (Duoneb 3 Mg/0.5 Mg (3 Ml) Ud) 3 ml INH RQ6 [facility] Last Admin: 04/03/18 13:45 Dose: 3 ml Aspirin (Ecotrin) 81 mg PO DAILY [facility] Last Admin: 04/03/18 09:03 Dose: Not Given Codeine Sulfate (Codeine) 30 mg PO Q6 PRN PRN Reason: Cough Last Admin: 04/03/18 16:34 Dose: 30 mg Doxazosin Mesylate (Cardura) 2 mg PO DAILY [facility] Last Admin: 04/03/18 09:02 Dose: 2 mg Hydrochlorothiazide (Microzide) 12.5 mg PO DAILY [facility] Last Admin: 04/03/18 09:03 Dose: 12.5 mg Hydromorphone HCl (Dilaudid) 1 mg IVP Q6H PRN PRN Reason: Pain, severe (8-10) Last Admin: 04/03/18 06:17 Dose: 1 mg Azithromycin (Zithromax 500mg In Ns Addvantage) 500 mg in 250 mls @ 167 mls/hr IVPB Q24H [facility]; Protocol Stop: 04/05/18 03:00 Last Admin: 04/03/18 02:23 Dose: 167 mls/hr Ceftriaxone Sodium (Rocephin Iv 1 Gm Duplex) 50 mls @ 50 mls/30 min IVPB Q24H [facility]; Protocol Last Admin: 04/03/18 02:19 Dose: 50 mls/30 min Lactulose (Enulose) 20 gm PO HS PRN PRN Reason: Constipation Last Admin: 04/01/18 21:48 Dose: 20 gm Lidocaine (Lidoderm) 1 ea TD DAILY [facility] Last Admin: 04/03/18 09:08 Dose: Not Given Losartan Potassium (Cozaar) 100 mg PO DAILY [facility] Last Admin: 04/03/18 09:03 Dose: 100 mg Rosuvastatin Calcium (Crestor) 10 mg PO HS [facility] Last Admin: 04/02/18 21:13 Dose: 10 mg Sertraline HCl (Zoloft) 100 mg PO DAILY [facility] Last Admin: 04/03/18 09:03 Dose: 100 mg - Labs Labs: 04/03/18 10:59 04/03/18 10:59 PT 11.0 SECONDS (9.7-12.2) 03/31/18 21:06 INR 1.0 03/31/18 21:06 APTT 33 SECONDS (21-34) 03/31/18 21:06
[2018-04-04] MEDS: Albuterol-Ipratrop 3 mg / 0.5 (3 ml) UD INH SCH ×6 (02:27→18:21)
[2018-04-04] MEDS: cefTRIAXone IV 1 gm in Dextros 50 ML IVPB SCH (02:45)
[2018-04-04] MEDS: Azithromycin 500mg/250ML NS 500 MG/250 ML BAG IVPB SCH (02:45)
[2018-04-04] MEDS: HYDROmorphone 1 mg/ml ISec IVP PRN (04:46)
[2018-04-04 08:26] LABS: BASO # 0.1 K/uL (0.0-0.2); BASO % 0.7 % (0.0-2.0); LYMPH # 1.4 K/uL (1.0-4.3); NRBC % 0.1 % (0.0-2.0)
[2018-04-04 08:43] LABS: EOS # 1.4 K/uL (0.0-0.7); EOS % 13.2 % (0.0-4.0); HEMOGLOBIN 15.3 g/dL (12.0-18.0); LYMPH % 13.2 % (20.0-40.0); MEAN CELL VOLUME 87.7 fL (80.0-94.0); MEAN CORPUSCULAR HEMOGLOBIN 29.5 pg (27.0-31.0); MEAN CORPUSCULAR HGB CONC 33.7 g/dL (33.0-37.0); MEAN PLATELET VOLUME 8.3 fL (7.2-11.7); MONO # 0.7 K/uL (0.0-0.8); NEUT # 6.8 K/uL (1.8-7.0); NEUT % 65.9 % (50.0-75.0); RBC 5.17 Mil/uL (4.40-5.90); RED CELL DISTRIBUTION WIDTH 14.1 % (11.5-14.5); WHITE BLOOD COUNT 10.3 K/uL (4.8-10.8)
[2018-04-04 08:46] LABS: ALBUMIN 3.9 g/dL (3.5-5.0); ALT/SGPT 36 U/L (21-72); AST/SGOT 25 U/L (17-59); BLOOD UREA NITROGEN 20 mg/dL (9-20); CALCIUM 8.3 mg/dl (8.6-10.4); GFR NON-AFRICAN AMERICAN > 60
[2018-04-04] MEDS: Lidocaine 5% Patch TD SCH (10:31)
--- NOTE | 2018-04-04 14:14 | CP.PCM.PN ---
Subjective - Date & Time of Evaluation Date of Evaluation: 04/04/18 Time of Evaluation: 10:00 - Subjective Subjective: Patient seen and examined. Patient continues to complain of left axillary pain, but states that his pain medications have been helping. Denies any shortness of breath, but admits to cough. Denies fevers, chills, headaches, or other symptoms. Patient aware of going to surgery today. Objective - Vital Signs/Intake and Output Vital Signs (last 24 hours): Temp Pulse Resp BP Pulse Ox 97.9 F 94 H 18 130/65 96 04/04/18 08:30 04/04/18 08:30 04/04/18 08:30 04/04/18 08:30 04/04/18 08:30 Intake and Output: 04/04/18 04/04/18 06:59 18:59 Intake Total 680 Output Total 1425 Balance -745 - Medications Medications: Current Medications Albuterol/Ipratropium (Duoneb 3 Mg/0.5 Mg (3 Ml) Ud) 3 ml INH RQ6 [facility] Last Admin: 04/04/18 07:20 Dose: Not Given Aspirin (Ecotrin) 81 mg PO DAILY [facility] Last Admin: 04/04/18 10:23 Dose: Not Given Codeine Sulfate (Codeine) 30 mg PO Q6 PRN PRN Reason: Cough Last Admin: 04/04/18 10:28 Dose: 30 mg Doxazosin Mesylate (Cardura) 2 mg PO DAILY [facility] Last Admin: 04/04/18 10:18 Dose: 2 mg Hydrochlorothiazide (Microzide) 12.5 mg PO DAILY [facility] Last Admin: 04/04/18 10:24 Dose: 12.5 mg Hydromorphone HCl (Dilaudid) 1 mg IVP Q6H PRN PRN Reason: Pain, severe (8-10) Last Admin: 04/04/18 04:46 Dose: 1 mg Azithromycin (Zithromax 500mg In Ns Addvantage) 500 mg in 250 mls @ 167 mls/hr IVPB Q24H [facility]; Protocol Stop: 04/05/18 03:00 Last Admin: 04/04/18 02:45 Dose: 167 mls/hr Ceftriaxone Sodium (Rocephin Iv 1 Gm Duplex) 50 mls @ 50 mls/30 min IVPB Q24H [facility]; Protocol Last Admin: 04/04/18 02:45 Dose: 50 mls/30 min Lactulose (Enulose) 20 gm PO HS PRN PRN Reason: Constipation Last Admin: 04/01/18 21:48 Dose: 20 gm Lidocaine (Lidoderm) 1 ea TD DAILY [facility] Last Admin: 04/04/18 10:31 Dose: Not Given Losartan Potassium (Cozaar) 100 mg PO DAILY [facility] Last Admin: 04/04/18 10:22 Dose: 100 mg Rosuvastatin Calcium (Crestor) 10 mg PO HS [facility] Last Admin: 04/03/18 21:58 Dose: 10 mg Sertraline HCl (Zoloft) 100 mg PO DAILY [facility] Last Admin: 04/04/18 10:25 Dose: 100 mg - Labs Labs: 04/04/18 08:13 04/04/18 08:13 PT 11.0 SECONDS (9.7-12.2) 03/31/18 21:06 INR 1.0 03/31/18 21:06 APTT 33 SECONDS (21-34) 03/31/18 21:06
[2018-04-04 14:24] LABS: PROTHROMBIN TIME 10.9 SECONDS (9.7-12.2)
[2018-04-04] MEDS ORDERED: Bupivacaine Liposomal Inj 20 ml INFIL ONE (14:41)
[2018-04-04] MEDS ORDERED: ceFAZolin 1 gm in NS 2 GM/200 ML BAG IVPB ONE (15:28)
[2018-04-04] MEDS ORDERED: Midazolam 2 MG/2 ML VIAL ONE (15:34)
[2018-04-04] MEDS ORDERED: Propofol 10 mg/ml Inj (20 ML) ONE (15:34)
[2018-04-04] MEDS: Lidocaine Hydrochloride 15 ML INJ ONE ×2 (15:50→16:00)
[2018-04-04] MEDS ORDERED: Sodium Chloride 0.9% 20 ML IV ONE (16:04)
[2018-04-04] MEDS ORDERED: Phenylephrine 10 mg/ml Inj ONE (16:30)
--- NOTE | 2018-04-04 17:56 | PCM.SURG1 ---
Surgeon's Initial Post Op Note - Surgeon's Notes Surgeon: Dr. Martin Tombstone Erector: Onelia Cabral PGY3, Gaston MS3 Type of Anesthesia: General Endo, Block Regional, Local Anesthesia Administered By: Dr. Wilks Pre-Operative Diagnosis: flail chest 2/2 chronic and acute fracture Operative Findings: multiple L broken thoracic ribs. chronic fibrotic masses on brokn ribs adjacent to the plated rib. Plated rib had 1cm gap Post-Operative Diagnosis: L fail chest Operation Performed: L posterior lateral thoracic incision with rib plate Specimen/Specimens Removed: none Estimated Blood Loss: EBL {In ML}: 10 Blood Products Given: N/A Drains Used: No Drains Post-Op Condition: Good Date of Surgery/Procedure: 04/04/18 Time of Surgery/Procedure: 17:57
[2018-04-04] MEDS: HYDROmorphone 0.5 mg/0.5 ml ISec IVP PRN ×2 (18:05→18:28)
--- NOTE | 2018-04-04 18:31 | RAD ---
Date of service: 04/04/2018 HISTORY: post op rib plate L . PACU COMPARISON: 03/31/2018 FINDINGS: LUNGS: Linear atelectasis right lower lobe. PLEURA: No significant pleural effusion identified, no pneumothorax apparent. CARDIOVASCULAR: No atherosclerotic calcification present No radiographic findings to suggest acute or significant cardiovascular disease. OSSEOUS STRUCTURES: Postoperative changes posterior lateral left 7th rib. VISUALIZED UPPER ABDOMEN: Normal. OTHER FINDINGS: None. IMPRESSION: Satisfactory postoperative findings.
[2018-04-04] MEDS: Oxycodone/Acetaminophen 5/325 mg Tab PO PRN (22:59)
[2018-04-05] MEDS: Albuterol-Ipratrop 3 mg / 0.5 (3 ml) UD INH SCH ×4 (02:00→19:22)
[2018-04-05] MEDS: cefTRIAXone IV 1 gm in Dextros 50 ML IVPB SCH (02:22)
[2018-04-05] MEDS: Azithromycin 500mg/250ML NS 500 MG/250 ML BAG IVPB SCH (02:23)
[2018-04-05] MEDS: HYDROmorphone 1 mg/ml ISec IVP PRN ×2 (02:32→20:56)
[2018-04-05 07:18] LABS: BASO % 0.2 % (0.0-2.0); EOS % 0.1 % (0.0-4.0); HEMOGLOBIN 13.6 g/dL (12.0-18.0); LYMPH # 0.7 K/uL (1.0-4.3); MEAN CELL VOLUME 88.7 fL (80.0-94.0); MEAN CORPUSCULAR HEMOGLOBIN 29.4 pg (27.0-31.0); MEAN CORPUSCULAR HGB CONC 33.1 g/dL (33.0-37.0); MEAN PLATELET VOLUME 7.9 fL (7.2-11.7); MONO # 1.3 K/uL (0.0-0.8); MONO % 8.9 % (0.0-10.0); NEUT # 12.3 K/uL (1.8-7.0); NEUT % 85.8 % (50.0-75.0); PLATELET COUNT 272 K/uL (130-400); RBC 4.62 Mil/uL (4.40-5.90); RED CELL DISTRIBUTION WIDTH 14.1 % (11.5-14.5); WHITE BLOOD COUNT 14.4 K/uL (4.8-10.8)
--- NOTE | 2018-04-05 07:52 | CP.PCM.PN ---
Subjective - Date & Time of Evaluation Date of Evaluation: 04/05/18 Time of Evaluation: 07:49 - Subjective Subjective: surgery Pt seen and examined. Underwent L rib plating yesterday. Tolerated it well. Pain controlled. Denies fever, nausea. Voided only 50cc. Bladder scan shows 700cc. Pt refusing catheter. Objective - Vital Signs/Intake and Output Vital Signs (last 24 hours): Temp Pulse Resp BP Pulse Ox 98.0 F 96 H 20 107/65 94 L 04/05/18 04:00 04/05/18 04:00 04/05/18 04:00 04/05/18 04:00 04/05/18 04:00 Intake and Output: 04/05/18 04/05/18 06:59 18:59 Intake Total 250 Output Total 250 Balance 0 - Medications Medications: Current Medications Albuterol/Ipratropium (Duoneb 3 Mg/0.5 Mg (3 Ml) Ud) 3 ml INH RQ6 [facility] Last Admin: 04/04/18 18:21 Dose: 3 ml Aspirin (Ecotrin) 81 mg PO DAILY [facility] Last Admin: 04/04/18 10:23 Dose: Not Given Codeine Sulfate (Codeine) 30 mg PO Q6 PRN PRN Reason: Cough Last Admin: 04/04/18 10:28 Dose: 30 mg Doxazosin Mesylate (Cardura) 2 mg PO DAILY [facility] Last Admin: 04/04/18 10:18 Dose: 2 mg Hydrochlorothiazide (Microzide) 12.5 mg PO DAILY [facility] Last Admin: 04/04/18 10:24 Dose: 12.5 mg Hydromorphone HCl (Dilaudid) 1 mg IVP Q6H PRN PRN Reason: Pain, severe (8-10) Last Admin: 04/05/18 02:32 Dose: 1 mg Ceftriaxone Sodium (Rocephin Iv 1 Gm Duplex) 50 mls @ 50 mls/30 min IVPB Q24H [facility]; Protocol Last Admin: 04/05/18 02:22 Dose: 50 mls/30 min Ketorolac Tromethamine (Toradol) 15 mg IVP Q6 PRN PRN Reason: Pain, severe (8-10) Lactulose (Enulose) 20 gm PO HS PRN PRN Reason: Constipation Last Admin: 04/01/18 21:48 Dose: 20 gm Lidocaine (Lidoderm) 1 ea TD DAILY [facility] Last Admin: 04/04/18 10:31 Dose: Not Given Losartan Potassium (Cozaar) 100 mg PO DAILY [facility] Last Admin: 04/04/18 10:22 Dose: 100 mg Oxycodone/Acetaminophen (Percocet 5/325 Mg Tab) 2 tab PO Q4H PRN PRN Reason: Pain, moderate (4-7) Stop: 04/07/18 17:52 Last Admin: 04/04/18 22:59 Dose: 2 tab Rosuvastatin Calcium (Crestor) 10 mg PO HS [facility] Last Admin: 04/04/18 21:52 Dose: 10 mg Sertraline HCl (Zoloft) 100 mg PO DAILY [facility] Last Admin: 04/04/18 10:25 Dose: 100 mg Tamsulosin HCl (Flomax) 0.4 mg PO DAILY [facility] - Labs Labs: 04/05/18 06:57 04/04/18 08:13 PT 10.9 SECONDS (9.7-12.2) 04/04/18 14:07 INR 1.0 04/04/18 14:07 APTT 31 SECONDS (21-34) 04/04/18 14:07 - Constitutional Appears: No Acute Distress - Head Exam Head Exam: ATRAUMATIC, NORMAL INSPECTION, NORMOCEPHALIC - Eye Exam Eye Exam: EOMI, Normal appearance, PERRL Pupil Exam: NORMAL ACCOMODATION, PERRL - ENT Exam ENT Exam: Mucous Membranes Moist - Neck Exam Neck Exam: Full ROM - Respiratory Exam Respiratory Exam: NORMAL BREATHING PATTERN Additional comments: L posterior chest has dressing has small amount of bloody stains. - Cardiovascular Exam Cardiovascular Exam: REGULAR RHYTHM, +S1, +S2. absent: Murmur - GI/Abdominal Exam GI & Abdominal Exam: Soft. absent: Tenderness - Exam Exam: NORMAL INSPECTION - Extremities Exam Extremities Exam: Full ROM - Back Exam Back Exam: NORMAL INSPECTION - Neurological Exam Neurological Exam: Alert, Awake, CN II-XII Intact, Normal Gait, Oriented x3 - Psychiatric Exam Psychiatric exam: Normal Affect, Normal Mood - Skin Skin Exam: Dry, Intact, Normal Color, Warm Assessment and Plan - Assessment and Plan (Free Text) Assessment: POD 1 s/p L 7th rib plating -IS, OOB, ambulate -Pain control -f/u CXR -f/u in [address] Martin office. -OK to take shower in 2 days -Leave steristrips(white strips) until come off naturally. Will CECI Martin
--- NOTE | 2018-04-05 09:02 | RAD ---
Date of service: 04/05/2018 HISTORY: post op COMPARISON: No prior. FINDINGS: LUNGS: Resolution of prior linear atelectasis right midlung zone. No interval airspace disease bilaterally. PLEURA: No significant pleural effusion identified, no pneumothorax apparent. CARDIOVASCULAR: No aortic atherosclerotic calcification present. Stable prominent cardiac silhouette without pulmonary vascular congestion appreciable. OSSEOUS STRUCTURES: Fixation hardware unchanged at the posterolateral left 7th rib. VISUALIZED UPPER ABDOMEN: Normal. OTHER FINDINGS: None. IMPRESSION: Resolution of prior linear atelectasis mid right lung zone with fixation hardware remaining in posterolateral left 7th rib. No interval acute infiltrate pleural effusion or pneumothorax appreciable. Stable prominent cardiac silhouette.
--- NOTE | 2018-04-05 10:06 | CP.PCM.PN ---
Subjective - Date & Time of Evaluation Date of Evaluation: 04/05/18 Time of Evaluation: 09:00 - Subjective Subjective: patient seen and examined Patient states he feels much better after surgery pt s/p L posterior lateral thoracic incision with rib plate for multiple fractures Objective - Vital Signs/Intake and Output Vital Signs (last 24 hours): Temp Pulse Resp BP Pulse Ox 97.3 F L 90 20 131/69 94 L 04/05/18 07:00 04/05/18 07:00 04/05/18 07:00 04/05/18 07:00 04/05/18 07:00 Intake and Output: 04/05/18 04/05/18 06:59 18:59 Intake Total 810 Output Total 300 Balance 510 - Medications Medications: Current Medications Albuterol/Ipratropium (Duoneb 3 Mg/0.5 Mg (3 Ml) Ud) 3 ml INH RQ6 [facility] Last Admin: 04/05/18 07:40 Dose: 3 ml Aspirin (Ecotrin) 81 mg PO DAILY [facility] Last Admin: 04/04/18 10:23 Dose: Not Given Codeine Sulfate (Codeine) 30 mg PO Q6 PRN PRN Reason: Cough Last Admin: 04/04/18 10:28 Dose: 30 mg Doxazosin Mesylate (Cardura) 2 mg PO DAILY [facility] Last Admin: 04/04/18 10:18 Dose: 2 mg Hydrochlorothiazide (Microzide) 12.5 mg PO DAILY [facility] Last Admin: 04/04/18 10:24 Dose: 12.5 mg Hydromorphone HCl (Dilaudid) 1 mg IVP Q6H PRN PRN Reason: Pain, severe (8-10) Last Admin: 04/05/18 02:32 Dose: 1 mg Ceftriaxone Sodium (Rocephin Iv 1 Gm Duplex) 50 mls @ 50 mls/30 min IVPB Q24H [facility]; Protocol Last Admin: 04/05/18 02:22 Dose: 50 mls/30 min Ketorolac Tromethamine (Toradol) 15 mg IVP Q6 PRN PRN Reason: Pain, severe (8-10) Lactulose (Enulose) 20 gm PO HS PRN PRN Reason: Constipation Last Admin: 04/01/18 21:48 Dose: 20 gm Lidocaine (Lidoderm) 1 ea TD DAILY [facility] Last Admin: 04/04/18 10:31 Dose: Not Given Losartan Potassium (Cozaar) 100 mg PO DAILY [facility] Last Admin: 04/04/18 10:22 Dose: 100 mg Oxycodone/Acetaminophen (Percocet 5/325 Mg Tab) 2 tab PO Q4H PRN PRN Reason: Pain, moderate (4-7) Stop: 04/07/18 17:52 Last Admin: 04/04/18 22:59 Dose: 2 tab Rosuvastatin Calcium (Crestor) 10 mg PO HS [facility] Last Admin: 04/04/18 21:52 Dose: 10 mg Sertraline HCl (Zoloft) 100 mg PO DAILY [facility] Last Admin: 04/04/18 10:25 Dose: 100 mg Tamsulosin HCl (Flomax) 0.4 mg PO DAILY [facility] - Labs Labs: 04/05/18 06:57 04/04/18 08:13 PT 10.9 SECONDS (9.7-12.2) 04/04/18 14:07 INR 1.0 04/04/18 14:07 APTT 31 SECONDS (21-34) 04/04/18 14:07 - Head Exam Head Exam: ATRAUMATIC, NORMOCEPHALIC - ENT Exam ENT Exam: Mucous Membranes Moist - Neck Exam Neck Exam: Normal Inspection - Respiratory Exam Respiratory Exam: Rhonchi - Cardiovascular Exam Cardiovascular Exam: REGULAR RHYTHM - GI/Abdominal Exam GI & Abdominal Exam: Soft, Normal Bowel Sounds Assessment and Plan (1) Fracture, ribs Assessment & Plan: s/p L posterior lateral thoracic incision with rib plate Continue pain medicines Continue antitussive Nebulizer treatment Status: Acute (2) COPD exacerbation Status: Acute (3) Chest pain Status: Acute
[2018-04-05] MEDS: Lidocaine 5% Patch TD SCH (10:21)
[2018-04-05 10:42] LABS: BANDS 1 % (0-2); LYMPHOCYTE 4 % (20-40); MONOCYTE 6 % (0-10); NEUTROPHIL 87 % (50-75); PLATELET ESTIMATE NORMAL (NORMAL); REACTIVE LYMPHOCYTES 2 % (0-0); TOTAL CELLS COUNTED 100
[2018-04-05] MEDS: Oxycodone/Acetaminophen 5/325 mg Tab PO PRN (15:14)
[2018-04-05] MEDS: Tmp-Smz 800 mg-160 mg DS Tab PO SCH (20:55)
[2018-04-05 23:02] LABS: URINE BILIRUBIN NEGATIVE (NEGATIVE); URINE BLOOD NEGATIVE (NEGATIVE); URINE CLARITY Clear (Clear); URINE COLOR Yellow (YELLOW); URINE GLUCOSE (UA) NORMAL (Normal); URINE LEUKOCYTE ESTERASE NEG Leu/uL (Negative); URINE PROTEIN NEGATIVE (NEGATIVE); URINE UROBILINOGEN NORMAL mg/dL (0.2-1.0)
[2018-04-06] MEDS: HYDROmorphone 1 mg/ml ISec IVP PRN (01:33)
[2018-04-06] MEDS: cefTRIAXone IV 1 gm in Dextros 50 ML IVPB SCH (01:36)
[2018-04-06] MEDS: Albuterol-Ipratrop 3 mg / 0.5 (3 ml) UD INH SCH ×5 (02:10→19:59)
[2018-04-06] MEDS: Tmp-Smz 800 mg-160 mg DS Tab PO SCH ×2 (05:13→17:12)
[2018-04-06] MEDS: Oxycodone/Acetaminophen 5/325 mg Tab PO PRN ×4 (05:53→19:14)
--- NOTE | 2018-04-06 07:13 | CP.PCM.PN ---
Subjective - Date & Time of Evaluation Date of Evaluation: 04/06/18 Time of Evaluation: 08:06 - Subjective Subjective: Cardiothoracic Surgery Note for Dr. Martin Patient seen and examined at bedside. No acute event overnight. Patient states pain is controlled. He is feeling better today. Denies fever/chills, chest pain SOB. Objective - Vital Signs/Intake and Output Vital Signs (last 24 hours): Temp Pulse Resp BP Pulse Ox 98.8 F 115 H 20 104/59 L 93 L 04/05/18 23:15 04/06/18 01:32 04/05/18 23:15 04/06/18 01:32 04/05/18 23:15 Intake and Output: 04/06/18 04/06/18 06:59 18:59 Intake Total 610 Output Total 1165 Balance -555 - Medications Medications: Current Medications Albuterol/Ipratropium (Duoneb 3 Mg/0.5 Mg (3 Ml) Ud) 3 ml INH RQ6 [facility] Last Admin: 04/06/18 02:10 Dose: 3 ml Aspirin (Ecotrin) 81 mg PO DAILY [facility] Last Admin: 04/04/18 10:23 Dose: Not Given Codeine Sulfate (Codeine) 30 mg PO Q6 PRN PRN Reason: Cough Last Admin: 04/05/18 10:22 Dose: 30 mg Doxazosin Mesylate (Cardura) 2 mg PO DAILY [facility] Last Admin: 04/05/18 10:33 Dose: 2 mg Hydrochlorothiazide (Microzide) 12.5 mg PO DAILY [facility] Last Admin: 04/05/18 10:21 Dose: 12.5 mg Hydromorphone HCl (Dilaudid) 2 mg IVP Q4H PRN PRN Reason: Pain, severe (8-10) Last Admin: 04/06/18 01:33 Dose: 2 mg Ceftriaxone Sodium (Rocephin Iv 1 Gm Duplex) 50 mls @ 50 mls/30 min IVPB Q24H [facility]; Protocol Last Admin: 04/06/18 01:36 Dose: 50 mls/30 min Ketorolac Tromethamine (Toradol) 15 mg IVP Q6 PRN PRN Reason: Pain, severe (8-10) Lactulose (Enulose) 20 gm PO HS PRN PRN Reason: Constipation Last Admin: 04/06/18 01:59 Dose: 20 gm Lidocaine (Lidoderm) 1 ea TD DAILY [facility] Last Admin: 04/05/18 10:21 Dose: Not Given Losartan Potassium (Cozaar) 100 mg PO DAILY [facility] Last Admin: 04/05/18 10:21 Dose: 100 mg Oxycodone/Acetaminophen (Percocet 5/325 Mg Tab) 2 tab PO Q4H PRN PRN Reason: Pain, moderate (4-7) Stop: 04/07/18 17:52 Last Admin: 04/06/18 05:53 Dose: 2 tab Rosuvastatin Calcium (Crestor) 10 mg PO HS [facility] Last Admin: 04/05/18 21:00 Dose: 10 mg Sertraline HCl (Zoloft) 100 mg PO DAILY [facility] Last Admin: 04/05/18 10:21 Dose: 100 mg Tamsulosin HCl (Flomax) 0.8 mg PO DAILY [facility] Trimethoprim/Sulfamethoxazole (Bactrim Ds Tab) 1 tab PO Q12H [facility]; Protocol Last Admin: 04/06/18 05:13 Dose: 1 tab - Labs Labs: 04/05/18 06:57 04/04/18 08:13 PT 10.9 SECONDS (9.7-12.2) 04/04/18 14:07 INR 1.0 04/04/18 14:07 APTT 31 SECONDS (21-34) 04/04/18 14:07 - Additional Findings Additional findings: - Constitutional Appears: No Acute Distress - Head Exam Head Exam: ATRAUMATIC, NORMAL INSPECTION, NORMOCEPHALIC - Eye Exam Eye Exam: EOMI, Normal appearance Pupil Exam: PERRL - ENT Exam ENT Exam: Mucous Membranes Moist - Respiratory Exam Respiratory Exam: NORMAL BREATHING PATTERN Additional comments: L posterior chest surgical dressing with some staining - Cardiovascular Exam Cardiovascular Exam: REGULAR RHYTHM, +S1, +S2. absent: Murmur - GI/Abdominal Exam GI & Abdominal Exam: Soft. absent: Tenderness - Neurological Exam Neurological Exam: Alert, Awake, CN II-XII Intact, Oriented x3 - Psychiatric Exam Psychiatric exam: Normal Affect, Normal Mood - Skin Skin Exam: Dry, Intact, Normal Color, Warm Assessment and Plan - Assessment and Plan (Free Text) Assessment: 67 M s/p s/p Left 7th rib plating POD#2 -HHD -IS, OOB, ambulation -Pain control -Patient clear for DC from surgical standpoint -Follow up at Dr. Mejia office at -Ok to shower -NO heavy lifting -Take Flomax and bactrim as prescribed -f/u with Urology as outpatient -Discussed with Dr. Roberto Pena PGY2
--- NOTE | 2018-04-06 09:30 | CON ---
DATE: 04/05/2018 COMPREHENSIVE UROLOGIC CONSULTATION TIME OF CONSULTATION: Roughly 5:05 p.m. BRIEF HISTORY: The patient is a 67-year-old white male with a history of COPD, hypertension, and hyperlipidemia with a prior history of bilateral rib fractures who now sustained a left rib and shoulder injury, status post fall in 02/2018, and eventually had surgery this admission for placement of plates for rib fractures. The patient almost went into acute urinary retention postop but now seems to be voiding better on Flomax 0.4 mg daily. This patient does have some intermittent dysuria and scheduled to go home soon. He denies history of any tobacco use and does have history of mild alcoholic social use. He also has a history of kidney stones. PHYSICAL EXAMINATION: GENERAL: Today, he is a well-developed, well-nourished, slightly obese male. He is alert, oriented. HEENT: Within normal limits. He is wearing a chest vest to protect his ribs at this time. ABDOMEN: Soft, nondistended, nontender. He has no CVA tenderness and no suprapubic tenderness at this time. GENITALIA: He is non-circumcised with normal glans and meatus but he does have almost total phimosis. His testicles are down bilaterally, nontender without any masses. No inguinal hernias or lymph nodes are palpated. RECTAL: Normal rectal tone without fluctuance or masses. Prostate appears to be average sized, smooth, symmetrical, nontender without nodules or indurations, with a palpable median sulcus. EXTREMITIES: He has full range of motion of both upper and lower extremities. LABORATORY EVALUATION: Today on 04/05/2018 shows a WBC count of 14.4, hemoglobin of 13.6, hematocrit of 40.9 with a platelet count of 272,000. His coag profile showed a PT of 10.9, INR of 1 and a PTT of 31. His chem profile done on 04/04/2018 showed a sodium of 141, potassium 3.9, chloride 102, CO2 of 27, BUN and creatinine 20 and 0.8 respectively with a GFR of greater than 60. Random glucose is 99. Calcium is 8.3. Phosphorous 4.1. Magnesium 1.9. Total bilirubin 0.4. AST 25, ALT 36. Alkaline phosphatase is 86. Urinalysis was not done. We will now send the urine for analysis and culture sensitivity. PLAN: He is also already on doxazosin 2 mg daily. We will now increase his Flomax to 0.4 mg b.i.d., and he could also be discharged home on Bactrim DS 1 tab b.i.d. for 10 days. The patient can be seen in office followup in about two weeks. Darryl Callejas MD
[2018-04-06] MEDS: Lidocaine 5% Patch TD SCH (09:43)
--- NOTE | 2018-04-06 12:24 | CP.PCM.PN ---
Subjective - Date & Time of Evaluation Date of Evaluation: 04/06/18 Time of Evaluation: 12:23 - Subjective Subjective: Pulmonary Follow up, Covering Dr Glasgow The patient was Seen/interviewed and examined by me at the bedside, Medical records reviewed and Management issues were discussed and formulated with the house staff. Events reviewed Patient is a 67-year-old male with PMHx of PE, COPD, HTN, HLD, and nephrolithasis Who was admitted for clavicle fracture, and multiple rib fractures s/p fall 3 weeks ago. Patient states that he fell from a ladder by his pool 3 weeks ago, and ever since then he has had left sided chest pain in anterior, lateral, and posterior regions. He admits to excruciating pain with cough, and deep breaths and rates the pain at 10+/10. He states that the pain is there at all times and rates it at 4/10. Patient admits to cough with copious clear sputum production, which he states he has been suffering from for months. S/p L posterior lateral thoracic incision with rib plate for multiple fractures Patient states he feels much better after surgery, However continues to complain of left axillary pain, but states that his pain medications have been helping. Denies any shortness of breath, but admits to cough with clear sputum production, Less copious. Denies fevers, chills, headaches, abdominal pain or leg swelling. Less shortness of breath Patient awake, comfortable, NAD Objective - Vital Signs/Intake and Output Vital Signs (last 24 hours): Temp Pulse Resp BP Pulse Ox 97.8 F 96 H 18 131/66 99 04/06/18 07:30 04/06/18 07:30 04/06/18 07:30 04/06/18 07:30 04/06/18 07:30 Intake and Output: 04/06/18 04/06/18 06:59 18:59 Intake Total 610 Output Total 1165 Balance -555 - Medications Medications: Current Medications Albuterol/Ipratropium (Duoneb 3 Mg/0.5 Mg (3 Ml) Ud) 3 ml INH RQ6 [facility] Last Admin: 04/06/18 08:35 Dose: 3 ml Aspirin (Ecotrin) 81 mg PO DAILY [facility] Last Admin: 04/06/18 09:21 Dose: 81 mg Codeine Sulfate (Codeine) 30 mg PO Q6 PRN PRN Reason: Cough Last Admin: 04/05/18 10:22 Dose: 30 mg Doxazosin Mesylate (Cardura) 2 mg PO DAILY [facility] Last Admin: 04/06/18 09:21 Dose: 2 mg Hydrochlorothiazide (Microzide) 12.5 mg PO DAILY [facility] Last Admin: 04/06/18 09:21 Dose: 12.5 mg Hydromorphone HCl (Dilaudid) 2 mg IVP Q4H PRN PRN Reason: Pain, severe (8-10) Last Admin: 04/06/18 01:33 Dose: 2 mg Ceftriaxone Sodium (Rocephin Iv 1 Gm Duplex) 50 mls @ 50 mls/30 min IVPB Q24H [facility]; Protocol Last Admin: 04/06/18 01:36 Dose: 50 mls/30 min Ketorolac Tromethamine (Toradol) 15 mg IVP Q6 PRN PRN Reason: Pain, severe (8-10) Lactulose (Enulose) 20 gm PO HS PRN PRN Reason: Constipation Last Admin: 04/06/18 01:59 Dose: 20 gm Lidocaine (Lidoderm) 1 ea TD DAILY [facility] Last Admin: 04/06/18 09:43 Dose: Not Given Losartan Potassium (Cozaar) 100 mg PO DAILY [facility] Last Admin: 04/06/18 09:21 Dose: 100 mg Oxycodone/Acetaminophen (Percocet 5/325 Mg Tab) 2 tab PO Q4H PRN PRN Reason: Pain, moderate (4-7) Stop: 04/07/18 17:52 Last Admin: 04/06/18 10:59 Dose: 2 tab Rosuvastatin Calcium (Crestor) 10 mg PO HS [facility] Last Admin: 04/05/18 21:00 Dose: 10 mg Sertraline HCl (Zoloft) 100 mg PO DAILY [facility] Last Admin: 04/06/18 09:21 Dose: 100 mg Tamsulosin HCl (Flomax) 0.8 mg PO DAILY [facility] Last Admin: 04/06/18 09:20 Dose: 0.8 mg Trimethoprim/Sulfamethoxazole (Bactrim Ds Tab) 1 tab PO Q12H [facility]; Protocol Last Admin: 04/06/18 05:13 Dose: 1 tab - Labs Labs: 04/05/18 06:57 04/04/18 08:13 PT 10.9 SECONDS (9.7-12.2) 04/04/18 14:07 INR 1.0 04/04/18 14:07 APTT 31 SECONDS (21-34) 04/04/18 14:07 - Constitutional Appears: Well, Non-toxic - Head Exam Head Exam: ATRAUMATIC, NORMAL INSPECTION, NORMOCEPHALIC - Eye Exam Eye Exam: EOMI, Normal appearance. absent: Conjunctival injection, Nystagmus - ENT Exam ENT Exam: Mucous Membranes Moist - Neck Exam Neck Exam: Full ROM, Normal Inspection. absent: Lymphadenopathy, Meningismus, Tenderness, Thyromegaly - Respiratory Exam Respiratory Exam: Chest Wall Tenderness, Decreased Breath Sounds, Prolonged Expiratory Phase, Rhonchi, Wheezes. absent: Accessory Muscle Use, Respiratory Distress, NORMAL BREATHING PATTERN - Cardiovascular Exam Cardiovascular Exam: RRR, +S1, +S2. absent: Bradycardia, Tachycardia, Diastolic murmur, JVD, Murmur - GI/Abdominal Exam GI & Abdominal Exam: Distended, Soft, Normal Bowel Sounds. absent: Firm, Guarding, Rigid, Tenderness - Extremities Exam Extremities Exam: Full ROM, Normal Capillary Refill, Pedal Edema. absent: Calf Tenderness - Back Exam Back Exam: absent: CVA tenderness (L), CVA tenderness (R) - Neurological Exam Neurological Exam: Alert, Awake, CN II-XII Intact, Normal Gait, Oriented x3. absent: Altered, Motor Sensory Deficit Assessment and Plan (1) COPD exacerbation Status: Acute (2) Chest discomfort Status: Acute (3) Chest wall contusion Status: Acute (4) Fall Status: Acute (5) Fracture, ribs Status: Acute (6) History of anxiety Status: Acute (7) Pleural effusion Status: Acute - Assessment and Plan (Free Text) Assessment: Continue Antibiotics Afebrile Continue PRN nebulizer treatment. Please resume home medications, Spiriva 1inh Q24h No need for Steroids Pain control, Oxycodone/Acetaminophen (Percocet 5/325 Mg Tab) 2 tab PO Q4H PRN OOB Incentive spirometry Aggressive pulmonary toilet Supplemental Oxygen keep SaO2 >94%
--- NOTE | 2018-04-06 14:39 | CP.PCM.PN ---
Subjective - Date & Time of Evaluation Date of Evaluation: 04/06/18 Time of Evaluation: 14:36 - Subjective Subjective: Medicine progress note for Dr. Cheng Patient was seen and examined at bedside in no acute distress. Patient is s/p left 7th rib plating, POD#2. Patient reports feeling better. He admits to a cough with phlegm that turn from "clear to dirty brown phlegm, not sure if its from drinking coffee". He states he has minimal pain post op. Patient denies chest pain, palpitations, nausea, vomiting, fevers, headaches, abdominal pain, leg pain, leg swelling. Objective - Vital Signs/Intake and Output Vital Signs (last 24 hours): Temp Pulse Resp BP Pulse Ox 97.8 F 96 H 18 131/66 99 04/06/18 07:30 04/06/18 07:30 04/06/18 07:30 04/06/18 07:30 04/06/18 07:30 Intake and Output: 04/06/18 04/06/18 06:59 18:59 Intake Total 610 Output Total 1165 Balance -555 - Medications Medications: Current Medications Albuterol/Ipratropium (Duoneb 3 Mg/0.5 Mg (3 Ml) Ud) 3 ml INH RQ4 [facility] Aspirin (Ecotrin) 81 mg PO DAILY [facility] Last Admin: 04/06/18 09:21 Dose: 81 mg Codeine Sulfate (Codeine) 30 mg PO Q6 PRN PRN Reason: Cough Last Admin: 04/05/18 10:22 Dose: 30 mg Doxazosin Mesylate (Cardura) 2 mg PO DAILY [facility] Last Admin: 04/06/18 09:21 Dose: 2 mg Hydrochlorothiazide (Microzide) 12.5 mg PO DAILY [facility] Last Admin: 04/06/18 09:21 Dose: 12.5 mg Hydromorphone HCl (Dilaudid) 2 mg IVP Q4H PRN PRN Reason: Pain, severe (8-10) Last Admin: 04/06/18 01:33 Dose: 2 mg Ceftriaxone Sodium (Rocephin Iv 1 Gm Duplex) 50 mls @ 50 mls/30 min IVPB Q24H [facility]; Protocol Last Admin: 04/06/18 01:36 Dose: 50 mls/30 min Ketorolac Tromethamine (Toradol) 15 mg IVP Q6 PRN PRN Reason: Pain, severe (8-10) Lactulose (Enulose) 20 gm PO HS PRN PRN Reason: Constipation Last Admin: 04/06/18 01:59 Dose: 20 gm Lidocaine (Lidoderm) 1 ea TD DAILY [facility] Last Admin: 04/06/18 09:43 Dose: Not Given Losartan Potassium (Cozaar) 100 mg PO DAILY [facility] Last Admin: 04/06/18 09:21 Dose: 100 mg Oxycodone/Acetaminophen (Percocet 5/325 Mg Tab) 2 tab PO Q4H PRN PRN Reason: Pain, moderate (4-7) Stop: 04/07/18 17:52 Last Admin: 04/06/18 10:59 Dose: 2 tab Rosuvastatin Calcium (Crestor) 10 mg PO HS [facility] Last Admin: 04/05/18 21:00 Dose: 10 mg Sertraline HCl (Zoloft) 100 mg PO DAILY [facility] Last Admin: 04/06/18 09:21 Dose: 100 mg Tamsulosin HCl (Flomax) 0.8 mg PO DAILY [facility] Last Admin: 04/06/18 09:20 Dose: 0.8 mg Trimethoprim/Sulfamethoxazole (Bactrim Ds Tab) 1 tab PO Q12H [facility]; Protocol Last Admin: 04/06/18 05:13 Dose: 1 tab - Labs Labs: 04/05/18 06:57 04/04/18 08:13 PT 10.9 SECONDS (9.7-12.2) 04/04/18 14:07 INR 1.0 04/04/18 14:07 APTT 31 SECONDS (21-34) 04/04/18 14:07 - Constitutional Appears: No Acute Distress - Head Exam Head Exam: NORMAL INSPECTION - Eye Exam Eye Exam: EOMI, Normal appearance - ENT Exam ENT Exam: Mucous Membranes Moist - Respiratory Exam Respiratory Exam: Decreased Breath Sounds, Wheezes, NORMAL BREATHING PATTERN Additional comments: Dressing- serosanginous drainage; no ecchymosis or tenderness to palpation. - Cardiovascular Exam Cardiovascular Exam: REGULAR RHYTHM, +S1, +S2 - GI/Abdominal Exam GI & Abdominal Exam: Soft, Normal Bowel Sounds. absent: Distended, Firm - Extremities Exam Extremities Exam: Full ROM, Normal Inspection. absent: Calf Tenderness, Tenderness - Neurological Exam Neurological Exam: Alert, Awake, Oriented x3 - Psychiatric Exam Psychiatric exam: Normal Affect, Normal Mood - Skin Skin Exam: Dry, Normal Color, Warm Assessment and Plan - Assessment and Plan (Free Text) Plan: Rib fracture (7th rib) - Thoracic surgeon: Dr. Mejia - s/p 7th rib plating, POD#2 - Continue pain management, OOB, ambulation, and incentive spirometer COPD - Bin Piler: Dr. Pee Renteria Q4 [facility] - Codeine Q6prn for cough - Spiriva 1inh Q24h - O2via NC prn HTN - Continue home medication: Losartan 100mg PO daily, HCTZ 12.5mg PO daily Hx of Urinary retention - Continue home medication: Doxazosin 2mg PO daily - Urologist: Dr. Callejas HLD - Continue home medication: Crestor 20mg po daily, ASA 81mg PO daily History of anxiety - Continue home medications: Sertraline 100mg PO daily Constipation - Lactulose PO HS prn for constipation Prophylactic measure GI: not indicated DVT: SCDs Hearty healthy diet
[2018-04-06 16:30] LABS: BASO % 0.5 % (0.0-2.0); EOS # 0.1 K/uL (0.0-0.7); EOS % 1.6 % (0.0-4.0); HEMOGLOBIN 13.2 g/dL (12.0-18.0); LYMPH # 0.6 K/uL (1.0-4.3); LYMPH % 8.2 % (20.0-40.0); MEAN CELL VOLUME 88.1 fL (80.0-94.0); MEAN CORPUSCULAR HEMOGLOBIN 28.9 pg (27.0-31.0); MEAN CORPUSCULAR HGB CONC 32.8 g/dL (33.0-37.0); MEAN PLATELET VOLUME 7.5 fL (7.2-11.7); MONO # 1.1 K/uL (0.0-0.8); MONO % 13.7 % (0.0-10.0); NEUT # 5.9 K/uL (1.8-7.0); PLATELET COUNT 224 K/uL (130-400); RBC 4.59 Mil/uL (4.40-5.90); WHITE BLOOD COUNT 7.7 K/uL (4.8-10.8)
[2018-04-06 16:47] LABS: ALB/GLOB RATIO 1.5 (1.0-2.1); ALBUMIN 3.5 g/dL (3.5-5.0); ALT/SGPT 27 U/L (21-72); AST/SGOT 26 U/L (17-59); BLOOD UREA NITROGEN 35 mg/dL (9-20); CALCIUM 8.7 mg/dl (8.6-10.4); GFR NON-AFRICAN AMERICAN 50
[2018-04-06 17:34] LABS: LYMPHOCYTE 13 % (20-40); MONOCYTE 6 % (0-10); NEUTROPHIL 81 % (50-75); PLATELET ESTIMATE NORMAL (NORMAL); TOTAL CELLS COUNTED 100
--- NOTE | 2018-04-06 18:07 | CP.PCM.DIS ---
Provider - Provider Date of Admission: 03/31/18 22:38 Attending physician: Guanako Cheng Jr, MD Primary care physician: Dr. Cheng Consults: Thoracic surgery: Dr. Miranda Pulmonology: Dr. Glasgow Urology: Dr. Callejas Time Spent in preparation of Discharge (in minutes): 45 Hospital Course - Lab Results Lab Results: Micro Results 04/05/18 Unknown Urine Urine Culture - Preliminary No growth. 03/31/18 20:00 Blood Blood Culture - Final NO GROWTH AFTER 5 DAYS 03/31/18 20:00 Blood Gram Stain - Final TEST NOT PERFORMED 03/31/18 20:30 Blood Blood Culture - Final NO GROWTH AFTER 5 DAYS 03/31/18 20:30 Blood Gram Stain - Final TEST NOT PERFORMED Most Recent Lab Values WBC 7.7 K/uL (4.8-10.8) 04/06/18 16:24 RBC 4.59 Mil/uL (4.40-5.90) 04/06/18 16:24 Hgb 13.2 g/dL (12.0-18.0) 04/06/18 16:24 Hct 40.4 % (35.0-51.0) 04/06/18 16:24 MCV 88.1 fL (80.0-94.0) 04/06/18 16:24 MCH 28.9 pg (27.0-31.0) 04/06/18 16:24 MCHC 32.8 g/dL (33.0-37.0) L 04/06/18 16:24 RDW 14.0 % (11.5-14.5) 04/06/18 16:24 Plt Count 224 K/uL (130-400) 04/06/18 16:24 MPV 7.5 fL (7.2-11.7) 04/06/18 16:24 Neut % (Auto) 76.0 % (50.0-75.0) H 04/06/18 16:24 Lymph % (Auto) 8.2 % (20.0-40.0) L 04/06/18 16:24 Freestone % (Auto) 13.7 % (0.0-10.0) H 04/06/18 16:24 Eos % (Auto) 1.6 % (0.0-4.0) 04/06/18 16:24 Baso % (Auto) 0.5 % (0.0-2.0) 04/06/18 16:24 Neut # (Auto) 5.9 K/uL (1.8-7.0) 04/06/18 16:24 Lymph # (Auto) 0.6 K/uL (1.0-4.3) L 04/06/18 16:24 Freestone # (Auto) 1.1 K/uL (0.0-0.8) H 04/06/18 16:24 Eos # (Auto) 0.1 K/uL (0.0-0.7) 04/06/18 16:24 Baso # (Auto) 0.0 K/uL (0.0-0.2) 04/06/18 16:24 Neutrophils % (Manual) 81 % (50-75) H 04/06/18 16:24 Band Neutrophils % 1 % (0-2) 04/05/18 06:57 Lymphocytes % (Manual) 13 % (20-40) L 04/06/18 16:24 Reactive Lymphs % 2 % (0-0) H 04/05/18 06:57 Monocytes % (Manual) 6 % (0-10) 04/06/18 16:24 Platelet Estimate Normal (NORMAL) 04/06/18 16:24 RBC Morphology Normal 04/05/18 06:57 PT 10.9 SECONDS (9.7-12.2) 04/04/18 14:07 INR 1.0 04/04/18 14:07 APTT 31 SECONDS (21-34) 04/04/18 14:07 Sodium 139 mmol/L (132-148) 04/06/18 16:24 Potassium 3.9 mmol/L (3.6-5.2) 04/06/18 16:24 Chloride 99 mmol/L (98-107) 04/06/18 16:24 Carbon Dioxide 30 mmol/L (22-30) 04/06/18 16:24 Anion Gap 14 (10-20) 04/06/18 16:24 BUN 35 mg/dL (9-20) H 04/06/18 16:24 Creatinine 1.4 mg/dL (0.8-1.5) 04/06/18 16:24 Est GFR ( Amer) > 60 04/06/18 16:24 Est GFR (Non-Af Amer) 50 04/06/18 16:24 Random Glucose 106 mg/dL (75-110) 04/06/18 16:24 Calcium 8.7 mg/dl (8.6-10.4) 04/06/18 16:24 Phosphorus 3.9 mg/dL (2.5-4.5) 04/06/18 16:24 Magnesium 2.3 mg/dL (1.6-2.3) 04/06/18 16:24 Total Bilirubin 0.4 mg/dL (0.2-1.3) 04/06/18 16:24 AST 26 U/L (17-59) 04/06/18 16:24 ALT 27 U/L (21-72) 04/06/18 16:24 Alkaline Phosphatase 72 U/L (38-126) 04/06/18 16:24 Troponin I 0.0190 ng/mL (0.00-0.120) 03/31/18 20:36 Total Protein 5.9 g/dL (6.3-8.3) L 04/06/18 16:24 Albumin 3.5 g/dL (3.5-5.0) 04/06/18 16:24 Globulin 2.4 gm/dL (2.2-3.9) 04/06/18 16:24 Albumin/Globulin Ratio 1.5 (1.0-2.1) 04/06/18 16:24 Urine Color Yellow (YELLOW) 04/05/18 22:24 Urine Clarity Clear (Clear) 04/05/18 22:24 Urine pH 5.0 (5.0-8.0) 04/05/18 22:24 Ur Specific Perkins 1.011 (1.003-1.030) 04/05/18 22:24 Urine Protein Negative mg/dL (NEGATIVE) 04/05/18 22:24 Urine Glucose (UA) Normal mg/dL (Normal) 04/05/18 22:24 Urine Ketones Negative mg/dL (NEGATIVE) 04/05/18 22:24 Urine Blood Negative (NEGATIVE) 04/05/18 22:24 Urine Nitrate Negative (NEGATIVE) 04/05/18 22:24 Urine Bilirubin Negative (NEGATIVE) 04/05/18 22:24 Urine Urobilinogen Normal mg/dL (0.2-1.0) 04/05/18 22:24 Ur Leukocyte Esterase Neg Lorena/uL (Negative) 04/05/18 22:24 Urine WBC (Auto) 1 /hpf (0-5) 04/05/18 22:24 Blood Type B POSITIVE 04/03/18 10:59 Antibody Screen Negative 04/03/18 10:59 - Hospital Course Hospital Course: Pt is a 67 y/o male, 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 Glasgow, on 03/31/18 with Left sided rib pain and increasing SOB. As per pt, the pain is located on the left, mid axillary upper ribcage. Pt reports he sustained fractures on 02/25 s/p fall on a pool deck, hitting the left side of his head, left ribcage, and left lower extremity. The pain has been constant since his fall, with intermittent episodes of acute pain that he describes feeling like a "hot poker." He rates these acute pain episodes at a 10/10 and a constant pain level of 4/10. He states that the pain is alleviated slightly with pain medication (codeine) and the use of his abdominal binder, and made worse with deep inhalation and movement. In addition to his acute rib fractures, the patient has several unhealed rib fractures due to "coughing attacks" and a syncopal episode he had in may 2017 following shoulder surgery. Along with his left sided rib pain, he reports SOB, cough with copious phlegm production (clear) and chronic constipation. He denies fever, headache, chest pain, palpitations, diarrhea, nausea, vomiting, or dysuria. Hospital course: Patient was admitted on 04/01/18 for 7th rib fracture. CXR show ed mild venous congestion, mild patchy increased markings at left lung base, tortuous ectatic aorta, mild cardiomegaly, chronic lower right rib osseous deformities. Chest CT showed small left pleural effusion, b/l rib fracture, 5mm left lower lobe pulmonary nodule (fleischner criteria low risk); 10mm hypodense heterogenous thyroid nodules, inferior left lower pole; outpatient thyroid US should be considered. THoracic surgeon, Dr. Mejia, was consulted. Patient went to the OR on 04/04/18. Patient is s/p left 7th rib plating, POD#2. Patient reports feeling better. He states he has minimal pain post op. Patient's ambulance paramedic, Dr. Glasgow, was also consulted for his hx of COPD. Patient was resumed on inhaled medications. Patient's urologist, Dr. Callejas, was consulted for patient's history of urinary retention. Patient's home medication was resumed, and bactrim and flomax were started. Patient home medication for anxiety, htn, and hld were also restarted. Patient is stable for discharge to home per Dr. Cheng and Dr. Mejia. Patient must follow up with PMD, surgeon, ambulance paramedic, and urologist within 1-2 weeks of discharge. This is a brief summary of the hospital course. Please see EMR for more details. Discharge Exam - Additional Findings Additional findings: - Constitutional Appears: No Acute Distress - Head Exam Head Exam: NORMAL INSPECTION - Eye Exam Eye Exam: EOMI, Normal appearance - ENT Exam ENT Exam: Mucous Membranes Moist - Respiratory Exam Respiratory Exam: Decreased Breath Sounds, Wheezes, NORMAL BREATHING PATTERN Additional comments: Dressing- serosanginous drainage; no ecchymosis or tenderness to palpation. - Cardiovascular Exam Cardiovascular Exam: REGULAR RHYTHM, +S1, +S2 - GI/Abdominal Exam GI & Abdominal Exam: Soft, Normal Bowel Sounds. absent: Distended, Firm - Extremities Exam Extremities Exam: Full ROM, Normal Inspection. absent: Calf Tenderness, Tenderness - Neurological Exam Neurological Exam: Alert, Awake, Oriented x3 - Psychiatric Exam Psychiatric exam: Normal Affect, Normal Mood - Skin Skin Exam: Dry, Normal Color, Warm Discharge Plan - Discharge Medications Prescriptions: Sulfamethoxazole/Trimethoprim [Bactrim DS Tab] 1 tab PO Q12H 10 Days #20 tab Tamsulosin [Flomax] 0.4 mg PO BID #60 cap Tiotropium [Spiriva] 18 mcg INH RQ24 #30 cap Tiotropium Pfeifer Inhaler [Spiriva Inhalation Handihaler Device] 1 inhaler INH ONCE #1 inhaler - Follow Up Plan Condition: FAIR Disposition: HOME/ ROUTINE Instructions: Rib Fracture (DC), Pleuritic Chest Pain (DC), Exacerbation of COPD (DC) Additional Instructions: Patient is stable for discharge to home per Dr. Cheng and Dr. Martin. Patient must continue home medication. Patient must continue the following medications in addition to home medicaitons: (sent electronically to patients preferred pharmacy) 1. Spiriva 1 puff inhaled daily 2. Flomax 0.4mg PO BID- take 1 tablet twice a day 3. Bactrim DS PO BID- take 1 tablet twice a day for 10 days. Patient must follow up with surgeon, Dr. Mejia in 1-2 weeks. Please call [phone] to schedule appointment. *Per surgery, patient may shower with transparent dressing on. NO heavy lifting. Leave steristrips (white strips) on until they come off naturally. Patient must follow up with urologist, Dr. Callejas, within 1-2 weeks of discharge. Patient must follow up with PMD within 1-2 weeks of discharge. If symptoms worsen or reoccur, patient should return to the ED. Referrals: Simón Martin [Staff Provider] -
[2018-04-06 18:16] VITALS: BP 128/70; PULSE 89; RESP 20; TEMP 97.7; O2SAT 96
[2018-04-06] MEDS ORDERED: Pneumococcal 23-Valent Vaccine IM ONE (20:19)
[2018-04-06] MEDS ORDERED: Influenza Vaccine 60 MCG/0.5 ML SYR (3 yr & up) IM ONE (20:21)
[2018-04-07] MEDS ORDERED: Tiotropium 18 mcg Cap For Inhalation INH SCH (08:00)
--- NOTE | 2018-04-14 09:43 | OP ---
PROCEDURE DATE: 04/04/2018 PREOPERATIVE DIAGNOSIS: Chronic recurrent, closed, displaced, multiple left-sided rib fractures with one in particular causing him intractable pain and difficulty with deep breaths, requiring chest wall stabilization. POSTOPERATIVE DIAGNOSIS: Chronic recurrent, closed, displaced, multiple left-sided rib fractures with one in particular causing him intractable pain and difficulty with deep breaths, requiring chest wall stabilization. PROCEDURE: Open rib plating (displaced seventh lateral left rib, regional intercostal nerve block). SURGEON: Simón Martin M.D. VISUAL ASSOCIATE: As per record. ANESTHESIA: General. ANESTHESIOLOGIST: As per record. INDICATIONS: As above. COMPLICATIONS: None. SPECIMENS: None. ESTIMATED BLOOD LOSS: Less than 25 mL. PROCEDURE IN DETAIL: The patient was identified by the operating room staff and placed supine on to the operating room table. Bilateral Venodynes were placed. Adequate IV access and monitoring apparatus were placed by the anesthesiologist. Prophylactic IV antibiotics were administered. General endotracheal anesthesia was induced uneventfully. The patient was turned to the right lateral decubitus position and maintained with a beanbag. All pressure points were appropriately padded. With maximal hip flexion, the patient was securely positioned, shaved, prepped, and draped in the usual sterile fashion. A regional intercostal nerve block was performed of the entire left lateral chest wall, by infiltrating 0.25 Marcaine in all the intercostal spaces, just medial to the vertebral takeoffs. As per preoperative imaging, the area just medial to the tip of the scapula was a particular site of concern for nonunion and continued displaced rib fracture. This also corresponded to an area of palpable tenderness before he was put under anesthesia. A curvilinear incision was made just medial to the distal tip of the left scapula, aiming superior, measuring approximately 8 cm in length. It was carried down sharply through the underlying tissues and musculature. The rib of concern was readily identified. 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 The neighboring ribs also had callus formation, but were firm and intact. It was decided to proceed with stabilizing this rib, so as to help with his ventilatory status and relieve him of his pain upon deep breathing. The rib both lateral and medial to the site of the nonunion was freed from surrounding tissue. The displaced rib medially was unable to be grabbed with the pre-provided rib stabilizer and elevated to the level of the lateral portion of the rib, so as to replicate a continuous line. This formed platform to place the titanium plate. There was a minimum of 4 screws placed on either side of the nonunion after measuring the rib height. This added stability and a level rib line for that seventh rib. Hemostasis was deemed adequate. The entire wound was irrigated and then dried. Again, there was no other palpable unstable rib fractures. Majority in that area, just below the musculature were palpable, but yet noted to have stable callus formation. At this point, the wound was closed in layers, concentrating on reapproximating all the musculature layers including the enveloping fascia. The skin edges were reapproximated with 4-0 Monocryl. Additional regional intercostal nerve block was performed by infiltrating the long-acting Marcaine with EXPAREL. Sterile dressings were applied. The patient was then laid supine, allowed to awaken, and was extubated uneventfully. He was transferred back to postanesthesia care unit with stable hemodynamics and stable respiratory status. All counts were correct x2. Simón Martin M.D.
== END 2018-04-06 21:00 | disposition home or self-care (01) | DRG 167 ==
LOC: C.ER 19:51 → C.9E 22:38 → C.6T 23:52
PROVIDERS: ADMIT Internal Medicine; ATTEND Internal Medicine
PROC: 3E0T3BZ Introduction of Anesthetic Agent into Peripheral Nerves and Plexi, Percutaneous Approach (ICD-10-PCS; 2018-04-04)
PROC: 0PS104Z Reposition 1 to 2 Ribs with Internal Fixation Device, Open Approach (ICD-10-PCS; principal; 2018-04-04 14:00)
DX: S22.5XXA Flail chest, initial encounter for closed fracture (principal); J44.1 Chronic obstructive pulmonary disease with (acute) exacerbation; J90 Pleural effusion, not elsewhere classified; W11.XXXA Fall on and from ladder, initial encounter; E78.00 Pure hypercholesterolemia, unspecified; E78.5 Hyperlipidemia, unspecified; F41.9 Anxiety disorder, unspecified; I11.9 Hypertensive heart disease without heart failure; K59.09 Other constipation; E04.1 Nontoxic single thyroid nodule; R33.9 Retention of urine, unspecified; Y92.016 Swimming-pool in single-family (private) house or garden as the place of occurrence of the external cause; Z79.899 Other long term (current) drug therapy; Z86.711 Personal history of pulmonary embolism; Z87.442 Personal history of urinary calculi; Z87.891 Personal history of nicotine dependence